=== PATIENT | female | born 1930 | race American Indian/Alaskan Native ===

== ENCOUNTER 2016-11-27 09:52 | Day surgery (SDC) | payer MEDICARE ==
[2016-11-27 10:17] VITALS: BP 160/72
[2016-11-27] MEDS ORDERED: NEOFRIN OS ONE (12:03)
[2016-11-27] MEDS ORDERED: MYDRIACYL 1% OS ONE (12:03)
[2016-11-27] MEDS ORDERED: IOPIDINE OS ONE (12:03)
== END 2016-11-27 12:57 | disposition home or self-care (01) ==
LOC: OR 09:52
PROVIDERS: ATTEND Specialist
DX: E11.36 Type 2 diabetes mellitus with diabetic cataract (principal); H26.492 Other secondary cataract, left eye; I10 Essential (primary) hypertension; E78.00 Pure hypercholesterolemia, unspecified; G47.30 Sleep apnea, unspecified; K21.9 Gastro-esophageal reflux disease without esophagitis; M19.90 Unspecified osteoarthritis, unspecified site; Z90.710 Acquired absence of both cervix and uterus; Z87.891 Personal history of nicotine dependence
CPT/HCPCS: 82962

== ENCOUNTER 2016-12-04 11:01 | Day surgery (SDC) | payer MEDICARE ==
[~2016-12-04 11:01] MED LIST: IOPIDINE OD ONE; MYDRIACYL OD ONE; NEOFRIN OD ONE
[2016-12-04 11:29] VITALS: BP 130/70
[2016-12-04] MEDS ORDERED: MYDRIACYL OD ONE (11:41)
[2016-12-04] MEDS ORDERED: IOPIDINE OD ONE ×2 (11:41)
[2016-12-04] MEDS ORDERED: NEOFRIN OD ONE (11:41)
== END 2016-12-04 12:43 | disposition home or self-care (01) ==
LOC: OR 11:01
PROVIDERS: ATTEND Specialist
DX: H26.491 Other secondary cataract, right eye (principal)
CPT/HCPCS: 82962

== ENCOUNTER 2019-02-19 23:30 | Emergency (ER) | payer MEDICARE ==
[2019-02-19] MEDS ORDERED: KEPPRA 1,000 MG/NS 0.75% 100ML 1,000 MG/100 ML BAG IV ONE (23:44)
[2019-02-20 00:51] LABS: Bilirubin,Urine NEG (Negative); Blood,Urine NEG (Negative); Color,Urine Yellow (Yellow); Protein,Urine <15 mg/dL mg/dL (Negative); Urobilinogen,Urine < 2.0 mg/dL (<2.0); WBC,Urine < 1.0 /HPF (0.0-6.0)
[2019-02-20 01:00] LABS: Amphetamine Screen,Urine PRESUMPTIVE NEGATIVE; Benzodiazepines Screen,Urine PRESUMPTIVE NEGATIVE; Cannabinoid Screen,Urine PRESUMPTIVE NEGATIVE; Cocaine Screen,Urine PRESUMPTIVE NEGATIVE; Methadone Screen,Urine PRESUMPTIVE NEGATIVE; Opiate Screen,Urine PRESUMPTIVE NEGATIVE
--- NOTE | 2019-02-20 01:02 | Emergency Department Report ---
ED Seizure HPI - General Chief Complaint: Seizure Stated Complaint: SEIZURE Time Seen by Provider: 02/19/19 23:44 Source: EMS, old records reviewed (from [facility]) Mode of arrival: Stretcher Limitations: No Limitations - History of Present Illness Initial Comments: 88-year-old female with a past medical history CHF, diabetes, hypertension, and recent diagnosis of brain brain tumor diagnosis on 02/15/2019 presents to the hospital with complaints of seizure.. Patient was found seizing by family members. EMS gave 2 of IM Ativan and patient continued to seize therefore received a second 2 mg IV dose of Ativan was provided. Patient is alert upon arrival with no further seizure activity. She denies pain. She is oriented to self but not to place or year. She states she feels fine. Awaiting family members arrival to the bedside for further information regarding recent brain tumor diagnosis and baseline mental status. Family (grandaughter and son) states that patient was admitted to [facility] and discharge last week. She was informed that she had both a mass in her brain and her kidney. She has a follow-up visit scheduled with a urologist on March 02. Family also states that patient has had increased confusion and hallucina tions since Mother's Day. He deny a past medical history of seizures. Medical records received from [facility] at 1:54 AM. It is listed that patient has a history of seizure disorder. Patient had a MRI that showed a right renal mass and she is supposed to follow up with urologist Dr. Hubbard. Differential includes possible renal cell carcinoma or there was artifact on the imaging study. It is listed that patient is supposed to continue Keppra for her seizure disorder. Keppra 500mg BID is listed as her med on her hospital MAR. Family members were not able to provide the hx that pt has sz medical record from [facility] placed on chart family informed that pt has a hx of seizures and should be on keppra. She has a lot of family members in the ER whenever, none of them know her history. The one family member who knows her history and meds is not in the ED. - Related Data Home Medications Medication Instructions Recorded Confirmed Last Taken Aspirin [Aspirin BABY CHEW TAB] 81 mg PO QDAY 10/02/14 02/20/19 Unknown Furosemide [Lasix TAB] 20 mg PO QDAY 10/02/14 02/20/19 Unknown Gabapentin [Neurontin] 300 mg PO QPM 10/02/14 02/20/19 Unknown Hydralazine HCl [Apresoline TAB] 25 mg PO TID 10/02/14 02/20/19 Unknown Omeprazole [PriLOSEC] 20 mg PO QDAY 10/02/14 02/20/19 Unknown Oxybutynin Chloride [Ditropan Xl] 10 mg PO QDAY 10/02/14 02/20/19 Unknown Simvastatin 20 mg PO QDAY 10/02/14 02/20/19 Unknown Vit B Comp No.3/Folic/C/Biotin 1 each PO QDAY 10/02/14 02/20/19 Unknown [Sherri-Edith Rx Tablet] metOLazone [Zaroxolyn] 2.5 mg PO BID 10/02/14 02/20/19 Unknown Previous Rx's Medication Instructions Recorded Last Taken Type levETIRAcetam [Keppra TAB] 500 mg PO BID #60 tablet 02/20/19 Unknown Rx Allergies Allergy/AdvReac Type Severity Reaction Status Date / Time No Known Allergies Allergy Verified 10/02/14 20:10 ED Review of Systems ROS: Stated complaint: SEIZURE Other details as noted in HPI Comment: All other systems reviewed and negative ED Past Medical Hx - Past Medical History Hx Hypertension: Yes Hx Congestive Heart Failure: Yes Hx Diabetes: Yes Additional medical history: HIATAL HERNIA, DX with Brain tumor on 02/15. - Surgical History Additional Surgical History: Stent in kidney - Social History Smoking Status: Never Smoker Substance Use Type: None - Medications Home Medications: Home Medications Medication Instructions Recorded Confirmed Last Taken Type Aspirin [Aspirin BABY CHEW TAB] 81 mg PO QDAY 10/02/14 02/20/19 Unknown History Furosemide [Lasix TAB] 20 mg PO QDAY 10/02/14 02/20/19 Unknown History Gabapentin [Neurontin] 300 mg PO QPM 10/02/14 02/20/19 Unknown History Hydralazine HCl [Apresoline TAB] 25 mg PO TID 10/02/14 02/20/19 Unknown History Omeprazole [PriLOSEC] 20 mg PO QDAY 10/02/14 02/20/19 Unknown History Oxybutynin Chloride [Ditropan Xl] 10 mg PO QDAY 10/02/14 02/20/19 Unknown History Simvastatin 20 mg PO QDAY 10/02/14 02/20/19 Unknown History Vit B Comp No.3/Folic/C/Biotin 1 each PO QDAY 10/02/14 02/20/19 Unknown History [Sherri-Edith Rx Tablet] metOLazone [Zaroxolyn] 2.5 mg PO BID 10/02/14 02/20/19 Unknown History levETIRAcetam [Keppra TAB] 500 mg PO BID #60 tablet 02/20/19 Unknown Rx ED Physical Exam - General Limitations: No Limitations - Other Other exam information: General: No limitations, patient is alert in no acute distress Head exam: Atraumatic, normocephalic Eyes exam: Normal appearance, pupils equal reactive to light, extraocular movements intact ENT: Moist mucous membrane Neck exam: Normal inspection, full range of motion, no meningismus nontender Respiratory exam: Clear to auscultation bilateral, no wheezes, rales, crackles Cardiovascular: Normal rate and rhythm, normal heart sounds Abdomen: Soft, nondistended, and nontender, with normal bowel sounds, no rebound, or guarding Extremity: Full range of motion normal inspection no deformity Back: Normal Inspection, full range of motion, no tenderness Neurologic: Alert, oriented x1, cranial nerves intact, no motor or sensory deficit, finger nose finger function intact Psychiatric: normal affect, normal mood Skin: Warm, dry, intact ED Course Vital Signs 02/19/19 02/19/19 02/20/19 23:34 23:46 00:27 Temperature 98.2 F 98.2 F Pulse Rate 95 H 95 H Respiratory 20 20 26 H Rate Blood Pressure 136/59 Blood Pressure 136/59 [Left] O2 Sat by Pulse 97 97 97 Oximetry 02/20/19 02:18 Temperature Pulse Rate 65 Respiratory 17 Rate Blood Pressure Blood Pressure 117/54 [Left] O2 Sat by Pulse 97 Oximetry - Reevaluation(s) Reevaluation #1: 02/20/19 01:30 Records requested from [facility] Medical Decision Making - Lab Data Result diagrams: 02/20/19 00:48 02/20/19 00:52 Lab Results 02/20/19 02/20/19 02/20/19 Range/Units 00:00 00:00 00:15 WBC (4.5-11.0) K/mm3 RBC (3.65-5.03) M/mm3 Hgb (10.1-14.3) gm/dl Hct (30.3-42.9) % MCV (79-97) fl MCH (28-32) pg MCHC (30-34) % RDW (13.2-15.2) % Plt Count (140-440) K/mm3 Lymph % (Auto) (13.4-35.0) % Elmore % (Auto) (0.0-7.3) % Eos % (Auto) (0.0-4.3) % Baso % (Auto) (0.0-1.8) % Lymph # (1.2-5.4) K/mm3 Elmore # (0.0-0.8) K/mm3 Eos # (0.0-0.4) K/mm3 Baso # (0.0-0.1) K/mm3 Seg Neutrophils % (40.0-70.0) % Seg Neutrophils # (1.8-7.7) K/mm3 Sodium (137-145) mmol/L Potassium (3.6-5.0) mmol/L Chloride (98-107) mmol/L Carbon Dioxide (22-30) mmol/L Anion Gap mmol/L BUN (7-17) mg/dL Creatinine (0.7-1.2) mg/dL Estimated GFR ml/min BUN/Creatinine Ratio % Glucose (65-100) mg/dL POC Glucose 162 H (70-105) Calcium (8.4-10.2) mg/dL Magnesium (1.7-2.3) mg/dL Troponin T (0.00-0.029) ng/mL Triglycerides (2-149) mg/dL Cholesterol (50-199) mg/dL LDL Cholesterol Direct (50-130) mg/dL HDL Cholesterol (40-59) mg/dL Cholesterol/HDL Ratio % TSH (0.270-4.200) mlU/mL Free T4 (0.76-1.46) ng/dL Urine Color Yellow (Yellow) Urine Turbidity Clear (Clear) Urine pH 5.0 (5.0-7.0) Ur Specific [place] 1.015 (1.003-1.030) Urine Protein <15 mg/dl (Negative) mg/dL Urine Glucose (UA) Neg (Negative) mg/dL Urine Ketones Neg (Negative) mg/dL Urine Blood Neg (Negative) Urine Nitrite Neg (Negative) Urine Bilirubin Neg (Negative) Urine Urobilinogen < 2.0 (<2.0) mg/dL Ur Leukocyte Esterase Neg (Negative) Urine WBC (Auto) < 1.0 (0.0-6.0) /HPF Urine RBC (Auto) 1.0 (0.0-6.0) /HPF Urine Opiates Screen Presumptive negative Urine Methadone Screen Presumptive negative Ur Barbiturates Screen Presumptive negative Ur Phencyclidine Scrn Presumptive negative Ur Amphetamines Screen Presumptive negative U Benzodiazepines Scrn Presumptive negative Urine Cocaine Screen Presumptive negative U Marijuana (THC) Screen Presumptive negative Drugs of Abuse Note Disclamer 02/20/19 02/20/19 02/20/19 Range/Units 00:48 00:52 00:52 WBC 8.0 (4.5-11.0) K/mm3 RBC 5.53 H (3.65-5.03) M/mm3 Hgb 12.8 (10.1-14.3) gm/dl Hct 39.6 (30.3-42.9) % MCV 72 L (79-97) fl MCH 23 L (28-32) pg MCHC 32 (30-34) % RDW 14.5 (13.2-15.2) % Plt Count 275 (140-440) K/mm3 Lymph % (Auto) 12.7 L (13.4-35.0) % Elmore % (Auto) 6.2 (0.0-7.3) % Eos % (Auto) 0.2 (0.0-4.3) % Baso % (Auto) 1.5 (0.0-1.8) % Lymph # 1.0 L (1.2-5.4) K/mm3 Elmore # 0.5 (0.0-0.8) K/mm3 Eos # 0.0 (0.0-0.4) K/mm3 Baso # 0.1 (0.0-0.1) K/mm3 Seg Neutrophils % 79.4 H (40.0-70.0) % Seg Neutrophils # 6.3 (1.8-7.7) K/mm3 Sodium 138 (137-145) mmol/L Potassium 3.2 L (3.6-5.0) mmol/L Chloride 98.6 (98-107) mmol/L Carbon Dioxide 26 (22-30) mmol/L Anion Gap 17 mmol/L BUN 24 H (7-17) mg/dL Creatinine 1.2 (0.7-1.2) mg/dL Estimated GFR 52 ml/min BUN/Creatinine Ratio 20 % Glucose 166 H (65-100) mg/dL POC Glucose (70-105) Calcium 9.6 (8.4-10.2) mg/dL Magnesium 1.50 L (1.7-2.3) mg/dL Troponin T (0.00-0.029) ng/mL Triglycerides (2-149) mg/dL Cholesterol (50-199) mg/dL LDL Cholesterol Direct (50-130) mg/dL HDL Cholesterol (40-59) mg/dL Cholesterol/HDL Ratio % TSH 0.389 (0.270-4.200) mlU/mL Free T4 2.14 H (0.76-1.46) ng/dL Urine Color (Yellow) Urine Turbidity (Clear) Urine pH (5.0-7.0) Ur Specific W[place]on (1.003-1.030) Urine Protein (Negative) mg/dL Urine Glucose (UA) (Negative) mg/dL Urine Ketones (Negative) mg/dL Urine Blood (Negative) Urine Nitrite (Negative) Urine Bilirubin (Negative) Urine Urobilinogen (<2.0) mg/dL Ur Leukocyte Esterase (Negative) Urine WBC (Auto) (0.0-6.0) /HPF Urine RBC (Auto) (0.0-6.0) /HPF Urine Opiates Screen Urine Methadone Screen Ur Barbiturates Screen Ur Phencyclidine Scrn Ur Amphetamines Screen U Benzodiazepines Scrn Urine Cocaine Screen U Marijuana (THC) Screen Drugs of Abuse Note 02/20/19 02/20/19 Range/Units 00:52 03:58 WBC (4.5-11.0) K/mm3 RBC (3.65-5.03) M/mm3 Hgb (10.1-14.3) gm/dl Hct (30.3-42.9) % MCV (79-97) fl MCH (28-32) pg MCHC (30-34) % RDW (13.2-15.2) % Plt Count (140-440) K/mm3 Lymph % (Auto) (13.4-35.0) % Elmore % (Auto) (0.0-7.3) % Eos % (Auto) (0.0-4.3) % Baso % (Auto) (0.0-1.8) % Lymph # (1.2-5.4) K/mm3 Elmore # (0.0-0.8) K/mm3 Eos # (0.0-0.4) K/mm3 Baso # (0.0-0.1) K/mm3 Seg Neutrophils % (40.0-70.0) % Seg Neutrophils # (1.8-7.7) K/mm3 Sodium (137-145) mmol/L Potassium (3.6-5.0) mmol/L Chloride (98-107) mmol/L Carbon Dioxide (22-30) mmol/L Anion Gap mmol/L BUN (7-17) mg/dL Creatinine (0.7-1.2) mg/dL Estimated GFR ml/min BUN/Creatinine Ratio % Glucose (65-100) mg/dL POC Glucose (70-105) Calcium (8.4-10.2) mg/dL Magnesium (1.7-2.3) mg/dL Troponin T 0.040 H 0.043 H (0.00-0.029) ng/mL Triglycerides 71 (2-149) mg/dL Cholesterol 153 (50-199) mg/dL LDL Cholesterol Direct 82 (50-130) mg/dL HDL Cholesterol 61 H (40-59) mg/dL Cholesterol/HDL Ratio 2.50 % TSH (0.270-4.200) mlU/mL Free T4 (0.76-1.46) ng/dL Urine Color (Yellow) Urine Turbidity (Clear) Urine pH (5.0-7.0) Ur Specific Wesson (1.003-1.030) Urine Protein (Negative) mg/dL Urine Glucose (UA) (Negative) mg/dL Urine Ketones (Negative) mg/dL Urine Blood (Negative) Urine Nitrite (Negative) Urine Bilirubin (Negative) Urine Urobilinogen (<2.0) mg/dL Ur Leukocyte Esterase (Negative) Urine WBC (Auto) (0.0-6.0) /HPF Urine RBC (Auto) (0.0-6.0) /HPF Urine Opiates Screen Urine Methadone Screen Ur Barbiturates Screen Ur Phencyclidine Scrn Ur Amphetamines Screen U Benzodiazepines Scrn Urine Cocaine Screen U Marijuana (THC) Screen Drugs of Abuse Note - EKG Data -: EKG Interpreted by Me EKG shows normal: sinus rhythm (sinus arrhythmia), axis (qrs -56), QRS complexes (qrsd 92), ST-T waves (no stemi) - EKG Data 02/20/19 02:01 repeat ekg shows at 1:52 amd shows sinsus arrhythmia - Radiology Data Radiology results: report reviewed PROCEDURE: CT HEAD/BRAIN WO CON TECHNIQUE: Computerized tomography of the head was performed without contrast material. CT DOSE LENGTH PRODUCT: 805.4 mGycm HISTORY: new onset sz, recent brain tumor diagnosis COMPARISONS: None . FINDINGS: There is moderate central and cortical atrophy. There is no hydrocephalus or asymmetry. There is a calcified right frontal meningioma measuring 13 mm. There are old lacunar infarct defect bilaterally. There is chronic deep white matter ischemic gliosis. Bony calvarium is intact. Paranasal sinuses are clear. IMPRESSION: There is moderate central and cortical atrophy. There is no hydrocephalus or asymmetry. There is a calcified right frontal meningioma measuring 13 mm. There are old lacunar infarct defect bilaterally. There is chronic deep white matter ischemic gliosis. - Medical Decision Making I discussed case with multiple family members to inform them that patient does have a history of seizures. I instructed them to reevaluate her home medications to assures that she is indeed taking the Keppra as prescribed. I will prescribe additional Keppra just in case they do not have the medication at home. Outpatient follow-up with a neurologist is advised. Pt is at her baseline mental status Mild troponin elevation noted. ekg stable x2. No complaints of chest pain. Repeat shows that it is stable. Patient will be discharged home. - Differential Diagnosis seizure, encephalopathy, brain tumor, ICH Critical Care Time: No Critical care attestation.: If time is entered above; I have spent that time in minutes in the direct care of this critically ill patient, excluding procedure time. ED Disposition Clinical Impression: Breakthrough seizure, Calcified cerebral meningioma Disposition: DC-01 TO HOME OR SELFCARE Is pt being admited?: No Does the pt Need Aspirin: No Condition: Stable Instructions: Epilepsy (ED) Additional Instructions: Take the medication as prescribed. Follow up with your doctor or the clinic/doctor provided. Return if symptoms worsen as indicated by your discharge instructions Prescriptions: levETIRAcetam [Keppra TAB] 500 mg PO BID #60 tablet Referrals: PRIMARY CARE, [Primary Care Provider] - 3-5 Days LINDA CARDONA MD [Staff Physician] - 3-5 Days (neurologist) Time of Disposition: 06:06
[2019-02-20 01:06] LABS: Basophils # (Auto) 0.1 K/mm3 (0.0-0.1); Basophils % (Auto) 1.5 % (0.0-1.8); Eosinophils % (Auto) 0.2 % (0.0-4.3); Hematocrit 39.6 % (30.3-42.9); Hemoglobin 12.8 gm/dl (10.1-14.3); Lymphocytes % (Auto) 12.7 % (13.4-35.0); Mean Corpuscular HGB Conc 32 % (30-34); Mean Corpuscular Volume 72 fl (79-97); Monocytes # (Auto) 0.5 K/mm3 (0.0-0.8); Monocytes % (Auto) 6.2 % (0.0-7.3); Platelet Count 275 K/mm3 (140-440); Red Blood Count 5.53 M/mm3 (3.65-5.03); Red Cell Distribution Width 14.5 % (13.2-15.2)
--- NOTE | 2019-02-20 01:08 | Cat Scan Report ---
PROCEDURE: CT HEAD/BRAIN WO CON TECHNIQUE: Computerized tomography of the head was performed without contrast material. CT DOSE LENGTH PRODUCT: 805.4 mGycm HISTORY: new onset sz, recent brain tumor diagnosis COMPARISONS: None . FINDINGS: There is moderate central and cortical atrophy. There is no hydrocephalus or asymmetry. There is a calcified right frontal meningioma measuring 13 mm. There are old lacunar infarct defect bilaterally. There is chronic deep white matter ischemic gliosis . Bony calvarium is intact. Paranasal sinuses are clear. IMPRESSION: There is moderate central and cortical atrophy. There is no hydrocephalus or asymmetry. There is a calcified right frontal meningioma measuring 13 mm. There are old lacunar infarct defect bilaterally. There is chronic deep white matter ischemic gliosis . This document is electronically signed by Miguel Ángel Snyder MD., February 20 2019 02:06:17 AM ET
[2019-02-20 01:28] LABS: Calcium 9.6 mg/dL (8.4-10.2)
[2019-02-20] MEDS ORDERED: MAGNESIUM SULFATE 2GM/50ML 2 GM/50 ML BAG IV ONE (01:32)
[2019-02-20] MEDS ORDERED: K-DUR PO ONE (01:32)
[2019-02-20 01:39] LABS: Free T4 (Free Thyroxine) 2.14 ng/dL (0.76-1.46)
[2019-02-20 02:21] VITALS: BP 117/54
[2019-02-20 02:54] LABS: Chol/HDL Ratio 2.5 %
== END 2019-02-20 11:18 | disposition home or self-care (01) ==
LOC: ED 23:30
DX: G40.909 Epilepsy, unspecified, not intractable, without status epilepticus (principal); D32.0 Benign neoplasm of cerebral meninges; I11.0 Hypertensive heart disease with heart failure; I50.9 Heart failure, unspecified; E11.9 Type 2 diabetes mellitus without complications; Z79.82 Long term (current) use of aspirin
CPT/HCPCS: 36415; 70450; 80048; 80061; 80307; 81001; 82962; 83735; 84439; 84443; 84484; 85025; 93005; 93010; 96365; 96366; 96367; 99285; J1953; J3475

== ENCOUNTER 2019-03-03 12:48 | Emergency (ER) | payer MEDICARE ==
[2019-03-03] MEDS ORDERED: KEPPRA 1,000 MG/NS 0.75% 100ML 1,000 MG/100 ML BAG IV ONE (13:17)
--- NOTE | 2019-03-03 13:52 | Emergency Department Report ---
HPI - General Chief Complaint: Seizure Time Seen by Provider: 03/03/19 13:14 - HPI HPI: 88-year-old -[place] female presents to the emergency department after she had a witnessed seizure just prior to arrival. It was witnessed by her and lasted for "a while." The patient is currently awake and alert with no significant complaints at this time. She has a past medical history of hypertension, diabetes, CHF, and a recent diagnosis of a brain mass and kidney mass. The patient was here about 11 days ago after having a seizure which was relatively new at the time. She was at [facility] about one week prior to that in which she had the brain mass diagnosis. They say that she is on some kind of medication for seizures but they are unsure exactly what medication that is. It does not appear that she received anything in route with EMS. No recent travel or sick contacts at home. ED Past Medical Hx - Past Medical History Hx Hypertension: Yes Hx Congestive Heart Failure: Yes Hx Diabetes: Yes Hx Seizures: Yes Additional medical history: HIATAL HERNIA, DX with Brain tumor on 02/15. - Surgical History Additional Surgical History: Stent in kidney - Social History Smoking Status: Never Smoker Substance Use Type: None - Medications Home Medications: Home Medications Medication Instructions Recorded Confirmed Last Taken Type Aspirin [Aspirin BABY CHEW TAB] 81 mg PO QDAY 10/02/14 02/20/19 Unknown History Furosemide [Lasix TAB] 20 mg PO QDAY 10/02/14 02/20/19 Unknown History Gabapentin [Neurontin] 300 mg PO QPM 10/02/14 02/20/19 Unknown History Hydralazine HCl [Apresoline TAB] 25 mg PO TID 10/02/14 02/20/19 Unknown History Omeprazole [PriLOSEC] 20 mg PO QDAY 10/02/14 02/20/19 Unknown History Oxybutynin Chloride [Ditropan Xl] 10 mg PO QDAY 10/02/14 02/20/19 Unknown History Simvastatin 20 mg PO QDAY 10/02/14 02/20/19 Unknown History Vit B Comp No.3/Folic/C/Biotin 1 each PO QDAY 10/02/14 02/20/19 Unknown History [Sherri-Edith Rx Tablet] metOLazone [Zaroxolyn] 2.5 mg PO BID 10/02/14 02/20/19 Unknown History levETIRAcetam [Keppra TAB] 500 mg PO BID #60 tablet 02/20/19 Unknown Rx ED Review of Systems ROS: Stated complaint: UNRESPONSIVE/POSS SEIZURE Other details as noted in HPI Comment: All other systems reviewed and negative Constitutional: denies: chills, fever Eyes: denies: eye pain, vision change ENT: denies: ear pain, throat pain Respiratory: denies: cough, shortness of breath Cardiovascular: denies: chest pain, palpitations Gastrointestinal: denies: abdominal pain, vomiting Genitourinary: denies: dysuria, discharge Musculoskeletal: denies: back pain, arthralgia Skin: denies: rash, lesions Neurological: other (seizure). denies: numbness Physical Exam - Physical Exam Physical Exam: GENERAL: The patient is well-developed well-nourished. HENT: Normocephalic. Atraumatic. Patient has moist mucous membranes. EYES: Extraocular motions are intact. Pupils equal reactive to light bilaterally. No nystagmus. NECK: Supple. Trachea is midline. CHEST/LUNGS: Clear to auscultation. There is no respiratory distress noted. HEART/CARDIOVASCULAR: Regular. There is no tachycardia. There is no murmur. ABDOMEN: Abdomen is soft, nontender. Patient has normal bowel sounds. There is no abdominal distention. SKIN: Skin is warm and dry. NEURO: The patient is awake, alert, and oriented. The patient is cooperative. The patient has no focal neurologic deficits. The patient has normal speech. Cranial nerves II through XII grossly intact. MUSCULOSKELETAL: There is no tenderness or deformity. There is no limitation range of motion. There is no evidence of acute injury. ED Medical Decision Making - Lab Data Result diagrams: 03/03/19 13:52 03/03/19 13:52 - EKG Data -: EKG Interpreted by Ks EKG shows normal: sinus rhythm (PVCs), axis (left axis deviation), intervals (mild prolongation of MT interval), QRS complexes (left anterior fascicular block, Q waves to the anterior leads), ST-T waves Rate: normal - EKG Data When compared to previous EKG there are: no significant change Interpretation: unchanged when compared t (02/22/19) - Medical Decision Making This patient presents to the emergency department after having a seizure prior to arrival. The patient has a history of a meningioma found in the mid to late January at another hospital and has been having a few seizures since that time. She is on Keppra and family says that she has been taking it compliantly. The patient has been awake, alert and at her baseline mental status since my initial evaluation. She was given a loading dose of Keppra. EKG does not show any signs of ST elevation UT and is unchanged from previous. Patient's labs were mostly unremarkable except for a slightly elevated troponin level and some possible hypothyroidism. The troponin level was 0.031, which is barely above the normal range, and his decreased from the troponin level she had when she was here 10 days ago. Also, the patient denies any chest pain, back pain, shortness of breath. Since patient had an MRI at [facility] that was reviewed and confirmed by my colleague, and since she had a repeat CT scan of the head during her last visit, and since there is been one seizure today with a seizure history, I did not feel that it was necessary to repeat the CT imaging of the head at this time. She was reevaluated multiple times over multiple hours and has remained awake, alert and at her baseline mental status. There is been no further seizure-like activity. Prior to discharge, the patient was seen ambulatory using a walker, which she does use, without any instability. For all these reasons, the patient appears safe for discharge home at this time. She's been instructed to continue with her antiepileptic medication and she has been given multiple referrals for neurology. I spoke in great detail to the patient's son regarding all of the lab results, her previous visits here, the diagnosis of a meningioma, the need to follow-up with neurology. They understand to return to the emergency department with any further seizure-like activity, worsening of her symptoms, or with any acute distress. - Differential Diagnosis epilepsy, malignancy, dysrhythmia, electrolyte abnormalities Critical Care Time: No Critical care attestation.: If time is entered above; I have spent that time in minutes in the direct care of this critically ill patient, excluding procedure time. ED Disposition Clinical Impression: Calcified cerebral meningioma, Seizure Hypertension Qualifiers: Hypertension type: essential hypertension Qualified Code(s): I10 - Essential (primary) hypertension Disposition: DC-01 TO HOME OR SELFCARE Is pt being admited?: No Condition: Stable Instructions: Meningioma (ED), Hypertension (ED), Recurrent Seizures Adult (ED) Additional Instructions: Please follow-up with your primary care physician in the next few days. I am giving you the referral information for 3 different neurologists, brain doctors, to follow up regarding your seizures and this meningioma (small brain tumor) that was previously found at [facility]. Continue taking the Keppra, your seizure medication, as previously prescribed. Return to the emergency department immediately with any further seizures, change in your mental status, worsening of your symptoms, or if any acute distress. Referrals: [facility] [Provider Group] - 3-5 Days GLORIA STODDARD MD [Staff Physician] - 3-5 Days LINDA CARDONA MD [Staff Physician] - 3-5 Days GABBY SADLER MD [Staff Physician] - 3-5 Days Time of Disposition: 17:57
[2019-03-03 14:19] LABS: Hematocrit 38.1 % (30.3-42.9); Hemoglobin 12.3 gm/dl (10.1-14.3); Mean Corpuscular HGB Conc 32 % (30-34); Mean Corpuscular Volume 72 fl (79-97); Platelet Count 278 K/mm3 (140-440); Red Blood Count 5.28 M/mm3 (3.65-5.03)
[2019-03-03 14:22] LABS: Alanine Aminotransferase 11 units/L (7-56); Albumin 3.1 g/dL (3.9-5); BUN/Creatinine Ratio 13; Blood Urea Nitrogen 9 mg/dL (7-17); Calcium 9.4 mg/dL (8.4-10.2); Hemolysis Index 24
[2019-03-03 14:59] LABS: Basophils % (Manual) 0 % (0.0-1.8); Total Cells Counted 100
[2019-03-03 15:00] LABS: Anisocytosis Few; Hypochromasia 1+; Platelet Estimate Consistent w Auto; Target Cells Few
[2019-03-03 15:11] LABS: Chol/HDL Ratio 2.2 %
[2019-03-03 18:31] LABS: Bacteria,Urine 1+ /HPF (Negative); Bilirubin,Urine NEG (Negative); Blood,Urine NEG (Negative); Color,Urine Yellow (Yellow); Mucus,Urine FEW /HPF; Protein,Urine <15 mg/dL mg/dL (Negative); Urobilinogen,Urine < 2.0 mg/dL (<2.0)
[2019-03-03 19:19] VITALS: BP 165/87
== END 2019-03-03 19:20 | disposition home or self-care (01) ==
LOC: ED 12:48
DX: R56.9 Unspecified convulsions (principal); D32.0 Benign neoplasm of cerebral meninges; I11.0 Hypertensive heart disease with heart failure; I50.9 Heart failure, unspecified; E11.9 Type 2 diabetes mellitus without complications; Z79.82 Long term (current) use of aspirin
CPT/HCPCS: 36415; 80053; 80061; 81001; 82550; 84443; 84484; 85007; 85025; 93005; 93010; 96374; 99284; G0480; J1953; 80320

== ENCOUNTER 2021-10-23 12:20 | Inpatient (IN) | payer MEDICARE ==
[2021-10-23] MEDS ORDERED: LORazepam 2 MG/ML VIAL IV ONE (12:30)
--- NOTE | 2021-10-23 12:42 | Emergency Department Report ---
HPI - General Time Seen by Provider: 10/23/21 12:30 - HPI HPI: Room 1 The patient is an 89-year-old female presenting with unresponsiveness. Per EMS the patient was at home and family reports they were changing her diaper when she went unresponsive. There was no reported seizure activity. Upon EMS arrival the patient was lying on the bed unresponsive with agonal respirations. Subsequently, the patient was intubated by EMS prior to arrival ED Past Medical Hx - Past Medical History Hx Hypertension: Yes Hx Congestive Heart Failure: Yes Hx Diabetes: Yes Hx Seizures: Yes Additional medical history: HIATAL HERNIA, meningioma - Surgical History Additional Surgical History: Stent in kidney - Family History Family history: no significant - Social History Smoking Status: Unknown if ever smoked Substance Use Type: None - Medications Home Medications: Home Medications Medication Instructions Recorded Confirmed Last Taken Type Aspirin [Aspirin BABY CHEW TAB] 81 mg PO QDAY 10/02/14 02/20/19 Unknown History Furosemide [Lasix TAB] 20 mg PO QDAY 10/02/14 02/20/19 Unknown History Gabapentin 300 mg PO QPM 10/02/14 02/20/19 Unknown History Hydralazine HCl [Apresoline TAB] 25 mg PO TID 10/02/14 02/20/19 Unknown History Omeprazole [PriLOSEC] 20 mg PO QDAY 10/02/14 02/20/19 Unknown History Oxybutynin Chloride [Ditropan Xl] 10 mg PO QDAY 10/02/14 02/20/19 Unknown History Simvastatin 20 mg PO QDAY 10/02/14 02/20/19 Unknown History Vit B Comp No.3/Folic/C/Biotin 1 each PO QDAY 10/02/14 02/20/19 Unknown History [Sherri-Edith Rx Tablet] metOLazone [Zaroxolyn] 2.5 mg PO BID 10/02/14 02/20/19 Unknown History levETIRAcetam [Keppra TAB] 500 mg PO BID #60 tablet 02/20/19 Unknown Rx ED Review of Systems ROS: Stated complaint: UNRESPONSIVE Other details as noted in HPI Comment: Unobtainable due to pts medical conditions Physical Exam - Physical Exam Physical Exam: GENERAL: The patient is well-developed well-nourished female intubated lying on stretcher. [] HEENT: Normocephalic. Atraumatic. Patient opens her eyes NECK: Supple. Trachea mid CHEST/LUNGS: Clear to auscultation. Breath sounds bilaterally HEART/CARDIOVASCULAR: Regular. There is no tachycardia. There is no gallop rub or murmur. ABDOMEN: Abdomen is soft, nontender. Patient has normal bowel sounds. There is no abdominal distention. SKIN: There is no rash. There is no edema. There is no diaphoresis. NEURO: The patient opens her eyes and makes some apparent nonpurposeful movements. GCS 8T MUSCULOSKELETAL: There is no evidence of acute injury. ED Course - Reevaluation(s) Reevaluation #1: 10/23/21 13:21 Nursing reports the patient has had intermittent runs of V. tach. Will initiate amiodarone - EJ/Peripheral Line Neck L Time Out Performed: No Indications: nurses unable to establis Skin Cleansed in Sterile Fashion: Yes Size: 20 Dressing Placed: Tegaderm Patient Tolerated Procedure: well ED Medical Decision Making - Lab Data Result diagrams: 10/23/21 14:27 10/23/21 Unknown - EKG Data Rate: normal - EKG Data When compared to previous EKG there are: previous EKG unavailable Interpretation: nonspecific ST-T wave zeynep 10/23/21 14:50 Atrial fibrillation at 57 bpm - Radiology Data Radiology results: report reviewed (Chest x-ray, CT head), image reviewed (Chest x-ray, CT head) interpreted by me: Chest x-ray-ET tube in appropriate position. No pneumothorax. Right hilar fullness [facility] [address] [place] [address] XRay Report Signed Patient: AKANKSHA GOMEZ MR#: [id number] : 1930 Acct:[id number] Age/Sex: 89 / F ADM Date: 10/23/21 Loc: ED Attending Dr: Ordering Physician: NICKOLAS LOVE MD Date of Service: 10/23/21 Procedure(s): XR chest 1V ap Accession Number(s): [id number] cc: NICKOLAS LOVE MD Fluoro Time In Minutes: CHEST 1 VIEW 10/23/2021 12:09 PM INDICATION / CLINICAL INFORMATION: Unresponsive, status post intubation. COMPARISON: 2 views of the chest from 10/02/2014. FINDINGS: The patient is rotated to the right. SUPPORT DEVICES: An ET tube terminates 2 cm above the rayray. HEART / MEDIASTINUM: Normal size of the cardiac silhouette. There is a nonspecific opacity at the level of the right hilum. LUNGS / PLEURA: Right hilar opacity as above with otherwise clear lungs. No significant pleural effusion. No pneumothorax. ADDITIONAL FINDINGS: No significant additional findings. IMPRESSION: 1. Satisfactory positioning of ET tube. 2. Nonspecific right hilar opacity could represent summation of normal mediastinal structures. Other considerations such as a mass, lymphadenopathy or focal airspace opacity are less likely, but cannot be entirely excluded. Signer Name: Florencio Akhtar MD Signed: 10/23/2021 1:17 PM Workstation Name: [id number] Transcribed By: MN Dictated By: Florencio Akhtar MD Electronically Authenticated By: Florencio Akhtar MD Signed Date/Time: 10/23/211316 DD/ 13 TD/TT: Print Cancel [facility] [address] [place] [address] Cat Scan Report Signed Patient: AKANKSHA GOMEZ MR#: [id number] : 1930 Acct:[id number] Age/Sex: 89 / F ADM Date: 10/23/21 Loc: ED Attending Dr: Ordering Physician: NICKOLAS LOVE MD Date of Service: 10/23/21 Procedure(s): CT head/brain wo con Accession Number(s): [id number] cc: NICKOLAS LOVE MD CT head/brain wo con INDICATION / CLINICAL INFORMATION: 89 years Female; Unresponsive. TECHNIQUE: Routine CT head without contrast. All CT scans at this location are performed using CT dose reduction for ALARA by means of automated exposure control. COMPARISON: 02/20/2019 FINDINGS: BRAIN / INTRACRANIAL CONTENTS: There are not findings consistent with a small meningioma along the inner table of the posterior frontal bone on the right, with minimal adjacent hyperostosis. This finding is not definitely changed in size when compared with prior exam and measures approximately 11 mm in maximum dimension. Otherwise, no acute hemorrhage, mass effect, midline shift, hydrocephalus, or acute, large territorial infarct. Mild, diffuse cerebral and cerebellar atrophy. Moderate degree of hippocampal atrophy suggested bilaterally. There are [id number] areas of decreased attenuation in the white matter of the cerebral hemispheres. These are nonspecific findings and may be related to microangiopathy (hypertension, diabetes, atherosclerosis), given the patient's age. It might be difficult to evaluate for small areas of ischemia without diffusion imaging by MRI. CRANIOCERVICAL JUNCTION: No significant abnormality. ORBITS: No significant abnormality of visualized orbits. SINUSES / MASTOIDS: There is complete opacification of the right sphenoid sinus. Partial opacification seen in the ethmoids posteriorly on the right, as well as left sphenoid sinus. Small mucous retention cyst/polyps are seen in the right maxillary antrum. ADDITIONAL FINDINGS: No significant atherosclerotic disease appreciated. IMPRESSION: 1. No focal intra-axial mass, hemorrhage, hydrocephalus, or acute, large territorial infarct. 2. No significant interval change in the appearance of the presumed meningioma along the inner table of the right frontal bone. Signer Name: Villa Stock MD, III Signed: 10/23/2021 2:08 PM Workstation Name: [id number] Transcribed By: HR Dictated By: Villa Stock MD Electronically Authenticated By: Villa Stock MD Signed Date/Time: 10/23/211407 DD/ 03 TD/TT: Print Cancel - Differential Diagnosis Seizure, ICH, electrolyte abnormality, dysrhythmia, metabolic Critical care attestation.: If time is entered above; I have spent that time in minutes in the direct care of this critically ill patient, excluding procedure time. ED Disposition Clinical Impression: Altered mental status, A-fib, V tach Disposition: ADMITTED INPATIENT Is pt being admited?: Yes Does the pt Need Aspirin: Yes Condition: Fair Time of Disposition: 15:05 (Hospitalist called (Dr. Krueger))
[2021-10-23] MEDS ORDERED: SODIUM CHLORIDE 0.9% 1000 ML 1,000 ML IV ONE (12:53)
[2021-10-23] MEDS ORDERED: MIDAZOLAM 100 MG/100 ML IV SCH (13:00)
--- NOTE | 2021-10-23 13:21 | XRay Report ---
CHEST 1 VIEW 10/23/2021 12:09 PM INDICATION / CLINICAL INFORMATION: Unresponsive, status post intubation. COMPARISON: 2 views of the chest from 10/02/2014. FINDINGS: The patient is rotated to the right. SUPPORT DEVICES: An ET tube terminates 2 cm above the rayray. HEART / MEDIASTINUM: Normal size of the cardiac silhouette. There is a nonspecific opacity at the lev el of the right hilum. LUNGS / PLEURA: Right hilar opacity as above with otherwise clear lungs. No significant pleural effus ion. No pneumothorax. ADDITIONAL FINDINGS: No significant additional findings. IMPRESSION: 1. Satisfactory positioning of ET tube. 2. Nonspecific right hilar opacity could represent summation of normal mediastinal structures. Other considerations such as a mass, lymphadenopathy or focal airspace opacity are less likely, but cannot be entirely excluded. Signer Name: Florencio Akhtar MD Signed: 10/23/2021 1:17 PM Workstation Name: [id number]
[2021-10-23 13:43] LABS: Bacteria,Urine 1+ /HPF (Negative); Bilirubin,Urine NEG (Negative); Blood,Urine MOD (Negative); Color,Urine Yellow (Yellow); Mucus,Urine FEW /HPF
[2021-10-23 13:46] LABS: ABG Base Excess -4.9 mmol/L (-2.0-3.0); ABG HCO3 20.5 mmol/L (20.0-26.0); ABG Methemoglobin 0.5 % (0.0-1.5); ABG Oxygen Saturation 99.5 % (95.0-99.0); ABG PCO2 38.9 mm Hg; ABG PH 7.339 pH Units (7.350-7.450); ABG PO2 288.6 mm Hg (80.0-90.0)
[2021-10-23] MEDS ORDERED: cefTRIAXone/NS 1 GM/50 ML 1 GM/50 ML BAG IV ONE (13:46)
[2021-10-23] MEDS ORDERED: AMIODARONE 150 MG in DEXTROSE 5% IN WATER 97 ML IV ONE (14:00)
[2021-10-23] MEDS ORDERED: AMIODARONE 900 MG in DEXTROSE 5% IN WATER 482 ML IV SCH (14:00)
--- NOTE | 2021-10-23 14:12 | Cat Scan Report ---
CT head/brain wo con INDICATION / CLINICAL INFORMATION: 89 years Female; Unresponsive. TECHNIQUE: Routine CT head without contrast. All CT scans at this location are performed using CT dos e reduction for ALARA by means of automated exposure control. COMPARISON: 02/20/2019 FINDINGS: BRAIN / INTRACRANIAL CONTENTS: There are not findings consistent with a small meningioma along the in ner table of the posterior frontal bone on the right, with minimal adjacent hyperostosis. This findin g is not definitely changed in size when compared with prior exam and measures approximately 11 mm in maximum dimension. Otherwise, no acute hemorrhage, mass effect, midline shift, hydrocephalus, or acute, large territoria l infarct. Mild, diffuse cerebral and cerebellar atrophy. Moderate degree of hippocampal atrophy suggested bilat erally. There are akyx-ej-mbwmdjjz areas of decreased attenuation in the white matter of the cerebral hemisph eres. These are nonspecific findings and may be related to microangiopathy (hypertension, diabetes, a therosclerosis), given the patient's age. It might be difficult to evaluate for small areas of ischem ia without diffusion imaging by MRI. CRANIOCERVICAL JUNCTION: No significant abnormality. ORBITS: No significant abnormality of visualized orbits. SINUSES / MASTOIDS: There is complete opacification of the right sphenoid sinus. Partial opacificatio n seen in the ethmoids posteriorly on the right, as well as left sphenoid sinus. Small mucous retenti on cyst/polyps are seen in the right maxillary antrum. ADDITIONAL FINDINGS: No significant atherosclerotic disease appreciated. IMPRESSION: 1. No focal intra-axial mass, hemorrhage, hydrocephalus, or acute, large territorial infarct. 2. No significant interval change in the appearance of the presumed meningioma along the inner table of the right frontal bone. Signer Name: Villa Stock MD, III Signed: 10/23/2021 2:08 PM Workstation Name: [id number]
[2021-10-23 14:36] LABS: Basophils % (Auto) 0.2 % (0.0-1.8); Eosinophils % (Auto) 0.1 % (0.0-4.3); Lymphocytes # (Auto) 1.1 K/mm3 (1.2-5.4); Lymphocytes % (Auto) 10.7 % (13.4-35.0); Mean Corpuscular HGB Conc 31 % (30-34); Mean Corpuscular Volume 73 fl (79-97); Monocytes # (Auto) 0.5 K/mm3 (0.0-0.8); Monocytes % (Auto) 4.4 % (0.0-7.3); Platelet Count 217 K/mm3 (140-440); Red Cell Distribution Width 14.9 % (13.2-15.2)
[2021-10-23 14:37] LABS: Hematocrit 37.9 % (30.3-42.9); Hemoglobin 11.6 gm/dl (10.1-14.3)
[2021-10-23] MEDS ORDERED: ASPIRIN 300 MG RECT SUPP PR ONE (14:51)
[2021-10-23 15:04] LABS: Alanine Aminotransferase 65 units/L (7-56); Albumin 2.8 g/dL (3.9-5); Blood Urea Nitrogen 24 mg/dL (7-17); Calcium 8.4 mg/dL (8.4-10.2); Hemolysis Index 3
[2021-10-23 15:05] LABS: BUN/Creatinine Ratio 34
--- NOTE | 2021-10-23 15:11 | History and Physical Report ---
History of Present Illness Chief complaint: Unresponsive History of present illness: 89 YO Female with HTN, Malnutrition, DM, Seizure Disorder, OA, CHF, Meningioma presents to ED for evaluation. Patient is intubated and on ventilatory support at the time my evaluation and is unable to provide history. Patient history taken from EMS staff, ED staff, as well as patient family was made available by telephone for interview. As per family the patient was receiving care at home and undergoing a diaper change when she subsequently became unresponsive. EMS was notified and upon arrival the patient was found to be in distress with agonal respirations and deemed unable to protect her airway and was subsequently intubated and transported to [facility] for further care and evaluation of the aforementioned symptoms. The patient was seen and evaluated in the emergency department. All lab and imaging studies reviewed. The patient was found to have acute hypoxemic respiratory failure and placed on ventilatory support. Chest x-ray revealed pneumonia suspected secondary to aspiration, metabolic acidosis, urinary tract infection, systemic inflammatory response syndrome, as well as type II NSTEMI. Patient admitted to ICU due to increased risk of worsening symptoms. Patient initiated on pneumonia protocol. No further history is obtainable. Prior admission on 10/02/2014 reviewed. All medication listed at time of admission has been reconciled. Advanced care planning conducted in ED. Past History Past Surgical History: hysterectomy, total knee replacement Social history: . denies: smoking, alcohol abuse Family history: hypertension Medications and Allergies Allergies Allergy/AdvReac Type Severity Reaction Status Date / Time No Known Allergies Allergy Verified 10/02/14 20:10 Home Medications Medication Instructions Recorded Confirmed Last Taken Type Aspirin [Aspirin BABY CHEW TAB] 81 mg PO QDAY 10/02/14 02/20/19 Unknown History Furosemide [Lasix TAB] 20 mg PO QDAY 10/02/14 02/20/19 Unknown History Gabapentin 300 mg PO QPM 10/02/14 02/20/19 Unknown History Hydralazine HCl [Apresoline TAB] 25 mg PO TID 10/02/14 02/20/19 Unknown History Omeprazole [PriLOSEC] 20 mg PO QDAY 10/02/14 02/20/19 Unknown History Oxybutynin Chloride [Ditropan Xl] 10 mg PO QDAY 10/02/14 02/20/19 Unknown History Simvastatin 20 mg PO QDAY 10/02/14 02/20/19 Unknown History Vit B Comp No.3/Folic/C/Biotin 1 each PO QDAY 10/02/14 02/20/19 Unknown History [Sherri-Edith Rx Tablet] metOLazone [Zaroxolyn] 2.5 mg PO BID 10/02/14 02/20/19 Unknown History levETIRAcetam [Keppra TAB] 500 mg PO BID #60 tablet 02/20/19 Unknown Rx Active Meds: Active Medications Midazolam DRIP Premix (Midazolam/Ns 100 Mg/100 Ml) 100 mg in 100 mls @ 1 mls/hr IV TITR JANET; Protocol Amiodarone HCl 900 mg/ (Dextrose) 500 mls @ 33.333 mls/hr IV DIRECT JANET; Protocol Review of Systems ROS unobtainable: due to endotracheal tube, due to mental status Exam - Constitutional Vitals: Temp Pulse Resp BP Pulse Ox 95.7 F L 105 H 20 102/68 99 10/23/21 13:34 10/23/21 14:00 10/23/21 13:34 10/23/21 13:38 10/23/21 14:00 General appearance: Present: mild distress - EENT Eyes: Present: miosis - Neck Neck: Present: supple, normal ROM - Respiratory Respiratory effort: labored Respiratory: bilateral: diminished, rhonchi - Cardiovascular Heart Sounds: Present: S1 & S2. Absent: rub, click - Extremities Extremities: pulses symmetrical, No edema Peripheral Pulses: within normal limits - Abdominal General gastrointestinal: Present: soft, non-tender, non-distended, normal bowel sounds Female genitourinary: Present: normal - Integumentary Integumentary: Present: clear, dry - Musculoskeletal Musculoskeletal: generalized weakness - Psychiatric Psychiatric: no appropriate mood/affect, no intact judgment & insight - Neurologic Neurologic: CNII-XII intact, no focal deficits, moves all extremities, no gait normal HEART Score - HEART Score Troponin: Troponin T 0.082 ng/mL (0.00-0.029) H 10/23/21 Unknown Results - Labs CBC & Chem 7: 10/23/21 14:27 10/23/21 Unknown Labs: Abnormal lab results 10/23/21 10/23/21 10/23/21 Range/Units 13:35 14:27 Unknown RBC 5.20 H (3.65-5.03) M/mm3 MCV 73 L (79-97) fl MCH 22 L (28-32) pg Lymph % (Auto) 10.7 L (13.4-35.0) % Lymph # (Auto) 1.1 L (1.2-5.4) K/mm3 Seg Neutrophils % 84.6 H (40.0-70.0) % Seg Neutrophils # 8.8 H (1.8-7.7) K/mm3 ABG pH 7.339 L (7.350-7.450) pH Units ABG pO2 288.6 H (80.0-90.0) mm Hg ABG O2 Saturation 99.5 H (95.0-99.0) % ABG Base Excess -4.9 L (-2.0-3.0) mmol/L ABG Hemoglobin 11.7 L (12.0-16.0) gm/dl Potassium (3.6-5.0) mmol/L Chloride (98-107) mmol/L Carbon Dioxide (22-30) mmol/L BUN (7-17) mg/dL Glucose (65-100) mg/dL Magnesium (1.7-2.3) mg/dL AST (5-40) units/L ALT (7-56) units/L Troponin T (0.00-0.029) ng/mL Total Protein (6.3-8.2) g/dL Albumin (3.9-5) g/dL Urine WBC (Auto) 45.0 H (0.0-6.0) /HPF 10/23/21 Range/Units Unknown RBC (3.65-5.03) M/mm3 MCV (79-97) fl MCH (28-32) pg Lymph % (Auto) (13.4-35.0) % Lymph # (Auto) (1.2-5.4) K/mm3 Seg Neutrophils % (40.0-70.0) % Seg Neutrophils # (1.8-7.7) K/mm3 ABG pH (7.350-7.450) pH Units ABG pO2 (80.0-90.0) mm Hg ABG O2 Saturation (95.0-99.0) % ABG Base Excess (-2.0-3.0) mmol/L ABG Hemoglobin (12.0-16.0) gm/dl Potassium 2.8 L* (3.6-5.0) mmol/L Chloride 110.1 H (98-107) mmol/L Carbon Dioxide 18 L (22-30) mmol/L BUN 24 H (7-17) mg/dL Glucose 202 H (65-100) mg/dL Magnesium 1.60 L (1.7-2.3) mg/dL AST 100 H (5-40) units/L ALT 65 H (7-56) units/L Troponin T 0.082 H (0.00-0.029) ng/mL Total Protein 5.9 L (6.3-8.2) g/dL Albumin 2.8 L (3.9-5) g/dL Urine WBC (Auto) (0.0-6.0) /HPF Assessment and Plan - Patient Problems (1) Acute hypoxemic respiratory failure Current Visit: Yes Status: Acute Plan to address problem: Chest x-ray, supplemental oxygen, pulse oximetry, nebulizer therapy, wean vent as tolerated, daily sedation holiday, daily spontaneous breathing trial, The high probability of a clinically significant, sudden or life threatening deterioration of the [pulmonary, cardiac, neuro, renal] system(s) required my full and direct attention, intervention and personal management. The aggregate critical care time was [95] minutes. This time is in addition to time spent performing reported procedures but includes the following: [x] Data Review and interpretation [x] Patient assessment and monitoring of vital signs [x] Documentation [x] Medication orders and management (2) Aspiration pneumonia Current Visit: Yes Status: Acute Plan to address problem: Chest x-ray, supplemental oxygen, pulse oximetry, nebulizer therapy, IV antibiotic therapy, blood culture, (3) NSTEMI (non-ST elevated myocardial infarction) Current Visit: Yes Status: Acute Plan to address problem: Serial cardiac enzymes, EKG, remote telemetry, echocardiogram ordered and is pending at time of admission, supportive care. (4) Acidosis Current Visit: Yes Status: Acute Plan to address problem: IV fluid resuscitation therapy, repeat BMP in a.m. (5) UTI (urinary tract infection) Current Visit: Yes Status: Acute Qualifiers: Hematuria presence: without hematuria Plan to address problem: IV antibiotic therapy, urinalysis, supportive care. (6) GERD (gastroesophageal reflux disease) Current Visit: Yes Status: Acute Qualifiers: Esophagitis presence: without esophagitis Qualified Code(s): K21.9 - Gastro-esophageal reflux disease without esophagitis Plan to address problem: PPI therapy, supportive care (7) Malnutrition Current Visit: Yes Status: Acute Qualifiers: Malnutrition type: protein-calorie malnutrition Protein-calorie malnutrition severity: moderate Qualified Code(s): E44.0 - Moderate protein- calorie malnutrition Plan to address problem: Increase protein intake, dietary supplementation when alert and oriented only (8) Seizure disorder Current Visit: Yes Status: Acute Plan to address problem: Continue Keppra therapy, seizure precautions, supportive care. (9) Meningioma Current Visit: Yes Status: Acute Plan to address problem: Chronic, unchanged since previous evaluation. CT scan reviewed (10) CHF (congestive heart failure) Current Visit: Yes Status: Acute Qualifiers: Heart failure chronicity: chronic Plan to address problem: Strict I/O, monitor urine output every shift, daily weight, afterload reduction, blood pressure control, supplemental oxygen. (11) DVT prophylaxis Current Visit: Yes Status: Acute Plan to address problem: SCDs bilateral lower extremities while in bed, prophylactic anticoagulation (12) Advance care planning Current Visit: Yes Status: Acute Plan to address problem: Disease education conducted, care plan discussed, diagnoses discussed, prognosis discussed, patient is full code, +30 minutes.
[2021-10-23 15:12] LABS: Free T4 (Free Thyroxine) 1.81 ng/dL (0.76-1.46)
[2021-10-23] MEDS ORDERED: DEXTROSE 50% IN WATER (25GM) 50 ML SYRINGE IV PRN (15:16)
[2021-10-23] MEDS ORDERED: oxyCODONE /ACETAMINOPHEN 5-325MG TAB PO PRN (15:30)
[2021-10-23 15:51] LABS: Chol/HDL Ratio 5.61 %; HDL Cholesterol 36 mg/dL (40-59); LDL Cholesterol,Direct 139 mg/dL (50-130)
[2021-10-23] MEDS ORDERED: ACETAMINOPHEN 650 MG RECT SUPP PR PRN (16:00)
[2021-10-23] MEDS ORDERED: HYDROmorphone 1 MG/1 ML INJ IV PRN (16:00)
[2021-10-23] MEDS: POTASSIUM CHLORIDE 10 MEQ 10 MEQ/100 ML BAG IV SCH ×4 (16:57→21:49)
[2021-10-23] MEDS ORDERED: ALBUTEROL 2.5 MG/3 ML NEBU IH PRN (17:00)
[2021-10-23] MEDS ORDERED: DEXTROSE 10% *Hypoglycemia IV PRN (17:00)
[2021-10-23] MEDS: INSULIN REGULAR, HUMAN 100 UNITS/1 ML SUB-Q SCH ×2 (17:02→23:29)
[2021-10-23] MEDS ORDERED: ACETAMINOPHEN 325 MG TAB PO PRN (17:30)
--- NOTE | 2021-10-23 17:51 | XRay Report ---
XR chest 1V ap INDICATION / CLINICAL INFORMATION: Central line placement. COMPARISON: Radiograph from earlier same day. FINDINGS: SUPPORT DEVICES: Endotracheal tube terminates 8 mm above the rayray. Right IJ central venous catheter projects over the SVC. HEART /PULMONARY VASCULATURE: Unchanged. LUNGS / PLEURA: Unchanged asymmetric prominence of the right hilar region. Continued follow-up is rec ommended. No pneumothorax. IMPRESSION: 1. Satisfactory position of right IJ central venous catheter. 2. Endotracheal tube is now low-lying. Recommend retraction by approximately 3 cm. 3. Otherwise stable chest. Signer Name: Yaron Medina MD Signed: 10/23/2021 5:47 PM Workstation Name: [id number]
[2021-10-23] MEDS ORDERED: traMADol 50 MG TAB PO PRN (18:00)
--- NOTE | 2021-10-23 18:07 | Procedure Note ---
Date of procedure: 10/23/21 Pre-op diagnosis: Acute respiratory failure Post-op diagnosis: same Procedure: Right internal jugular vein triple-lumen catheter placement under ultrasound guidance The patient was prepped and draped in the usual sterile fashion. A timeout was taken with patient nurse at bedside to verify the correct patient, procedure and operative site. Local anesthesia was obtained with 1% lidocaine. Ultrasound was utilized to localize right internal jugular vein without difficulty. The Seldinger technique was utilized to access the right internal jugular vein under ultrasound guidance. A seeker needle was advanced into the right internal jugular vein under ultrasound guidance without difficulty. A guidewire was then advanced through the seeker needle into the right internal jugular vein without difficulty. The seeker needle was subsequently removed. A scalpel was used to incise the skin at the insertion site. A dilator was then passed over the guidewire into the right internal jugular vein and subsequently removed. A preflushed triple-lumen catheter was then advanced over the guidewire into the right internal jugular vein. The guidewire was then removed. All 3 ports flush and draw with ease. A Biopatch was placed at the insertion site. 3-0 nylon suture was then utilized to secure it the triple-lumen catheter in place. Postoperative chest x-ray revealed no evidence of pneumothorax and displayed triple-lumen catheter in the superior vena cava. Estimated blood loss minimal complications none specimens none. Anesthesia: local Surgeon: ECTOR DE Estimated blood loss: minimal Condition: critical Disposition: ICU
[2021-10-23] MEDS: PANTOPRAZOLE 20 MG TAB PO SCH (18:09)
[2021-10-23] MEDS: GABAPENTIN 300 MG CAP PO SCH (18:09)
[2021-10-23] MEDS: metroNIDAZOLE/NS 500 MG/100 ML 500 MG/100 ML BAG IV SCH (18:13)
[2021-10-23] MEDS ORDERED: NON-FORMULARY EACH (Hydralazine Hcl [Apresoline Tab] 50 MG Tablet) PO SCH (20:00)
[2021-10-23] MEDS ORDERED: levETIRAcetam 500 MG TAB PO SCH (22:00)
[2021-10-23] MEDS: OXYBUTYNIN 5 MG TAB PO SCH (23:29)
[2021-10-23] MEDS: HEPARIN 5,000 UNIT/1 ML VIAL SUB-Q SCH (23:29)
[2021-10-23] MEDS: hydrALAZINE 25 MG TAB PO SCH (23:29)
[2021-10-23] MEDS: PRAVASTATIN 40 MG TAB PO SCH (23:30)
[2021-10-23] MEDS: metOLazone 2.5 MG TAB PO SCH (23:30)
[2021-10-24] MEDS: metroNIDAZOLE/NS 500 MG/100 ML 500 MG/100 ML BAG IV SCH ×2 (01:49→08:33)
[2021-10-24] MEDS: hydrALAZINE 25 MG TAB PO SCH ×3 (06:08→21:26)
[2021-10-24 06:41] LABS: Basophils % (Auto) 0.3 % (0.0-1.8); Hemoglobin 11.8 gm/dl (10.1-14.3); Lymphocytes % (Auto) 13.5 % (13.4-35.0); Mean Corpuscular HGB Conc 31 % (30-34); Mean Corpuscular Volume 72 fl (79-97); Monocytes # (Auto) 0.5 K/mm3 (0.0-0.8); Monocytes % (Auto) 6.4 % (0.0-7.3); Platelet Count 172 K/mm3 (140-440); Red Blood Count 5.27 M/mm3 (3.65-5.03); Red Cell Distribution Width 14.8 % (13.2-15.2)
[2021-10-24] MEDS: INSULIN REGULAR, HUMAN 100 UNITS/1 ML SUB-Q SCH ×3 (06:44→18:07)
[2021-10-24 06:52] LABS: Blood Urea Nitrogen 24 mg/dL (7-17); Calcium 8.6 mg/dL (8.4-10.2); Hemolysis Index 9
[2021-10-24 07:01] LABS: BUN/Creatinine Ratio 40
[2021-10-24] MEDS: PANTOPRAZOLE 20 MG TAB PO SCH (08:30)
--- NOTE | 2021-10-24 09:19 | XRay Report ---
CHEST - 1 VIEW INDICATION: F/U, intubated COMPARISON: Yesterday FINDINGS: SUPPORT DEVICES: New nasogastric tube with tip near the GE junction should be advanced another 5-10 cm. Otherwise unchanged support device positioning. Of note, the endotracheal tube remains below the level of the clavicles and should be retracted 2-3 cm. HEART: Stable cardiomediastinal silhouette. LUNGS/PLEURA: Clear lungs. ADDITIONAL FINDINGS: None. IMPRESSION: Support devices as above. Clear lungs. Signer Name: Nikhil Rooney MD Signed: 10/24/2021 9:15 AM Workstation Name: [id number]
[2021-10-24 09:50] LABS: ABG Base Excess -1.3 mmol/L (-2.0-3.0); ABG HCO3 20.7 mmol/L (20.0-26.0); ABG Methemoglobin 0.4 % (0.0-1.5); ABG Oxygen Saturation 98.7 % (95.0-99.0); ABG PCO2 27.2 mm Hg; ABG PH 7.5 pH Units (7.350-7.450)
[2021-10-24] MEDS ORDERED: NON-FORMULARY EACH (Oxybutynin Chloride [Ditropan Xl] 10 MG Tab.Er.24) PO SCH (10:00)
[2021-10-24] MEDS ORDERED: [UNRECOGNIZED DRUG - REMARK] PO SCH (10:00)
[2021-10-24] MEDS ORDERED: NON-FORMULARY EACH (Simvastatin [Simvastatin] 20 MG Tablet) PO SCH (10:00)
[2021-10-24] MEDS ORDERED: NON-FORMULARY EACH (Omeprazole [Prilosec] 20 MG Capsule.Dr) PO SCH (10:00)
--- NOTE | 2021-10-24 10:26 | Progress Note ---
<JING BRAGG - Last Filed: 10/24/21 16:34> Assessment and Plan Assessment and plan: This is a 89-year-old female with past medical history of CHF, HTN, DM, Seizure disorder, meningioma, OA, and malnutrition admitted for acute hypoxemic respiratory failure secondary to aspiration pneumonia requiring ventilatory support. Hospital Course to Date: 10/24: Intubated and sedated, RASS-5 on versed gtt, on low vent setting. Will do a sedation vacation to assess patient's mental status. Patient was on amio gtt for VTACH/Afib, now on hold due to bradycardia. Patient is SR on the monitor this am, HR 60-70s, not on any pressors. Pending cardiology consult. Patient is afebrile, wbcs normal, with no report of any diarrhea/loose stools, will hold flagyl for now. Continue IV Levaquin for now, COVID PCR result is pending. Assessment and Plan #Acute hypoxemic respiratory failure #Aspiration Pneumonia #COVID PUI - Found with agonal breathing, unable to protect airway at home - 2/2 Intubate in the field by EMS - Vent Setting: PRVC-30%,6,20,450 - On sedation, plan for sedation vacation for possible SAT/SBT - CCM consulted, appreciate recommendations - On IV Antibiotics - VAP bundle addressed - Aspiration precaution HOB above 30 - Daily SBT and SAT trials as tolerated - Daily ABG and CXR - Continue SPO2 monitoring for SPO2 goal above 92% #NSTEMI (non-ST elevated myocardial infarction) #Atrial Fibrilation #CHF (congestive heart failure) #?? VTACH - Troponin leak on admit- EKG with no ST changes - Report of possible VTACH/AFIb on admit - Was on Amio gtt in the ED, now on Hold due to bradycardia - Patient is SR on the monitor this am, BP stable - 2D Echo is pending - Home meds resumed - monitor urine output every shift - daily weight - Monitor and replace electrolytes as needed - Continue blood pressure monitor per protocol - Cardiology consulted #UTI (urinary tract infection) - UA with pyuria, urine culture pending - Lactic normal, will check a procal - On IV Abx - Continue to F/u on culture date #Seizure disorder #Meningioma - Patient has a history - CT head reviewed - Continue Keppra therapy - seizure precautions - supportive care #Type 2 Diabetes - SSI Q6hrs - Avoid hypoglycemia #GI/DVT prophylaxis - Continue PPI- Prevacid - Continue AC- Heparin SubQ - SCDs bilateral lower extremities while in bed The high probability of a clinically significant, sudden or life threatening deterioration of the [multiple] system(s) required my full and direct attention, intervention and personal management. The aggregate critical care time was [60] minutes. This time is in addition to time spent performing reported procedures but includes the following: [x] Data Review and interpretation [x] Patient assessment and monitoring of vital signs [x] Documentation [x] Medication orders and management Disposition Plan: ICU Total Time Spent with Patient (Minutes): 60 History Interval history: Patient seen and examined at the bedside. Intubated and sedated, RASS-5. Per RN was runs of VTACH and Afib in the ED was started on Amio gtt, however amio drip was discontinued this am due to bradycardia, HR in the 50s. Patient is SR on the monitor, HR in the 60-70s with runs of PVCs Hospitalist Physical - Constitutional Vitals: Temp Pulse Resp BP Pulse Ox 98.3 F 61 20 113/64 99 10/23/21 22:56 10/24/21 09:22 10/24/21 09:00 10/24/21 09:22 10/24/21 09:22 General appearance: Present: no acute distress, other (Intubated and sedated) - EENT Eyes: Present: PERRL ENT: hearing intact - Neck Neck: Present: normal ROM - Respiratory Respiratory effort: normal Respiratory: bilateral: rhonchi - Cardiovascular Rhythm: regular Heart Sounds: Present: S1 & S2 - Extremities Extremities: no ischemia, pulses intact, pulses symmetrical Extremity abnormal: edema - Peripheral Assessment Generalized Edema Type: Non-pitting Edema Degree: 1+ Capillary Refill: < 3 seconds Skin Temperature: Warm Peripheral Pulses: within normal limits - Abdominal General gastrointestinal: soft, non-distended, hypoactive bowel sounds - Integumentary Integumentary: Present: warm, dry - Psychiatric Psychiatric: other (Intubated and Sedated) - Neurologic Neurologic: other (Intubated and Sedated) - Allied Health Allied health notes reviewed: nursing HEART Score - HEART Score Troponin: Troponin T 0.365 ng/mL (0.00-0.029) H* 10/24/21 05:30 Results - Labs CBC & Chem 7: 10/24/21 05:30 10/24/21 05:30 Labs: Laboratory Last Values WBC 7.3 K/mm3 (4.5-11.0) 10/24/21 05:30 RBC 5.27 M/mm3 (3.65-5.03) H 10/24/21 05:30 Hgb 11.8 gm/dl (10.1-14.3) 10/24/21 05:30 Hct 38.0 % (30.3-42.9) 10/24/21 05:30 MCV 72 fl (79-97) L 10/24/21 05:30 MCH 22 pg (28-32) L 10/24/21 05:30 MCHC 31 % (30-34) 10/24/21 05:30 RDW 14.8 % (13.2-15.2) 10/24/21 05:30 Plt Count 172 K/mm3 (140-440) 10/24/21 05:30 Lymph % (Auto) 13.5 % (13.4-35.0) 10/24/21 05:30 [place] % (Auto) 6.4 % (0.0-7.3) 10/24/21 05:30 Eos % (Auto) 0.0 % (0.0-4.3) 10/24/21 05:30 Baso % (Auto) 0.3 % (0.0-1.8) 10/24/21 05:30 Lymph # (Auto) 1.0 K/mm3 (1.2-5.4) L 10/24/21 05:30 [place] # (Auto) 0.5 K/mm3 (0.0-0.8) 10/24/21 05:30 Eos # (Auto) 0.0 K/mm3 (0.0-0.4) 10/24/21 05:30 Baso # (Auto) 0.0 K/mm3 (0.0-0.1) 10/24/21 05:30 Seg Neutrophils % 79.8 % (40.0-70.0) H 10/24/21 05:30 Seg Neutrophils # 5.8 K/mm3 (1.8-7.7) 10/24/21 05:30 PT 14.3 Sec. (12.2-14.9) 10/23/21 Unknown INR 1.00 (0.87-1.13) 10/23/21 Unknown APTT 22.0 Sec. (24.2-36.6) L 10/23/21 Unknown ABG pH 7.500 pH Units (7.350-7.450) H 10/24/21 09:35 ABG pCO2 27.2 mm Hg 10/24/21 09:35 ABG pO2 126.0 mm Hg (80.0-90.0) H 10/24/21 09:35 ABG HCO3 20.7 mmol/L (20.0-26.0) 10/24/21 09:35 ABG O2 Saturation 98.7 % (95.0-99.0) 10/24/21 09:35 ABG O2 Content 16.7 (0.0-44) 10/24/21 09:35 ABG Base Excess -1.3 mmol/L (-2.0-3.0) 10/24/21 09:35 ABG Hemoglobin 12.1 gm/dl (12.0-16.0) 10/24/21 09:35 ABG Carboxyhemoglobin 1.1 % (0.0-5.0) 10/24/21 09:35 ABG Methemoglobin 0.4 % (0.0-1.5) 10/24/21 09:35 VBG pH Cancelled 10/23/21 13:35 Oxyhemoglobin 97.1 % (95.0-99.0) 10/24/21 09:35 FiO2 30 % 10/24/21 09:35 Sodium 138 mmol/L (137-145) 10/24/21 05:30 Potassium 3.9 mmol/L (3.6-5.0) D 10/24/21 05:30 Chloride 105.6 mmol/L (98-107) 10/24/21 05:30 Carbon Dioxide 22 mmol/L (22-30) 10/24/21 05:30 Anion Gap 14 mmol/L 10/24/21 05:30 BUN 24 mg/dL (7-17) H 10/24/21 05:30 Creatinine 0.6 mg/dL (0.6-1.2) 10/24/21 05:30 Estimated GFR > 60 ml/min 10/24/21 05:30 BUN/Creatinine Ratio 40 % 10/24/21 05:30 Glucose 98 mg/dL (65-100) 10/24/21 05:30 POC Glucose 105 mg/dL (70-105) 10/24/21 06:33 Lactic Acid 1.70 mmol/L (0.7-2.0) 10/23/21 Unknown Calcium 8.6 mg/dL (8.4-10.2) 10/24/21 05:30 Magnesium 1.60 mg/dL (1.7-2.3) L 10/23/21 Unknown Total Bilirubin 0.50 mg/dL (0.1-1.2) 10/23/21 Unknown AST 100 units/L (5-40) H 10/23/21 Unknown ALT 65 units/L (7-56) H 10/23/21 Unknown Alkaline Phosphatase 75 units/L (35-129) 10/23/21 Unknown Ammonia 49.0 umol/L (25-60) 10/23/21 Unknown Troponin T 0.365 ng/mL (0.00-0.029) H* 10/24/21 05:30 Total Protein 5.9 g/dL (6.3-8.2) L 10/23/21 Unknown Albumin 2.8 g/dL (3.9-5) L 10/23/21 Unknown Albumin/Globulin Ratio 0.9 % 10/23/21 Unknown Triglycerides 90 mg/dL (2-149) 10/23/21 Unknown Cholesterol 202 mg/dL (50-199) H 10/23/21 Unknown LDL Cholesterol Direct 139 mg/dL (50-130) H 10/23/21 Unknown HDL Cholesterol 36 mg/dL (40-59) L 10/23/21 Unknown Cholesterol/HDL Ratio 5.61 % 10/23/21 Unknown TSH 0.771 mlU/mL (0.270-4.200) 10/23/21 Unknown Free T4 1.81 ng/dL (0.76-1.46) H 10/23/21 Unknown Urine Color Yellow (Yellow) 10/23/21 Unknown Urine Turbidity Slightly-cloudy (Clear) 10/23/21 Unknown Urine pH 6.0 (5.0-7.0) 10/23/21 Unknown Ur Specific Ledbetter 1.023 (1.003-1.030) 10/23/21 Unknown Urine Protein 100 mg/dl mg/dL (Negative) 10/23/21 Unknown Urine Glucose (UA) Neg mg/dL (Negative) 10/23/21 Unknown Urine Ketones Tr mg/dL (Negative) 10/23/21 Unknown Urine Blood Mod (Negative) 10/23/21 Unknown Urine Nitrite Neg (Negative) 10/23/21 Unknown Urine Bilirubin Neg (Negative) 10/23/21 Unknown Urine Urobilinogen 4.0 mg/dL (<2.0) 10/23/21 Unknown Ur Leukocyte Esterase Lg (Negative) 10/23/21 Unknown Urine WBC (Auto) 45.0 /HPF (0.0-6.0) H 10/23/21 Unknown Urine RBC (Auto) 30.0 /HPF (0.0-6.0) 10/23/21 Unknown U Epithel Cells (Auto) < 1.0 /HPF (0-13.0) 10/23/21 Unknown Urine Bacteria (Auto) 1+ /HPF (Negative) 10/23/21 Unknown Urine Mucus Few /HPF 10/23/21 Unknown Urine Yeast (Budding) 1+ /HPF 10/23/21 Unknown Microbiology: Microbiology 10/23/21 13:25 Tracheal Aspirate Sputum Culture - Preliminary 10/23/21 Unknown Urine,Clean Catch Urine Culture - Preliminary NO GROWTH AFTER 24 HOURS Gonzalez/IV: Voiding Method Indwelling Catheter Active Medications - Current Medications Current Medications: Generic Name Dose Route Start Last Admin Trade Name Freq PRN Reason Stop Dose Admin Acetaminophen 650 mg 10/23/21 16:00 Acetaminophen 650 Mg Rect Supp RI Q6H PRN Pain MILD(1-3)/Fever >100.5/MARTINEZ Acetaminophen 650 mg 10/23/21 17:30 Acetaminophen 325 Mg Tab PO Q6H PRN Pain, Mild (1-3) Albuterol 2.5 mg 10/23/21 17:00 Albuterol 2.5 Mg/3 Ml Nebu IH Q3HRT PRN Shortness Of Breath Lipase/Protease/Amylase 1 each 10/24/21 10:19 Lipase 10,500/Protease 25,000/Amylase 43,750 (Units) Cap FEEDTUBE PRN PRN For Clogged Feeding Tube Aspirin 81 mg 10/24/21 10:00 Aspirin 81 Mg Tab Chew PO QDAY JANET Dextrose 0 ml 10/23/21 17:00 Dextrose 10% *Hypoglycemia IV PRN PRN Hypoglycemia Fentanyl 50 mcg 10/24/21 10:18 Fentanyl 100 Mcg/2 Ml Inj IV Q10MIN PRN ANALGESIA Furosemide 20 mg 10/24/21 10:00 Furosemide 20 Mg Tab PO QDAY JANET Gabapentin 300 mg 10/23/21 18:00 10/23/21 18:09 Gabapentin 300 Mg Cap PO Not Given QPM [facility] Heparin Sodium (Porcine) 5,000 unit 10/23/21 22:00 10/23/21 23:29 Heparin 5,000 Unit/1 Ml Vial SUB-Q 5,000 unit Q12HR JANET Administration Hydralazine HCl 25 mg 10/23/21 22:00 10/24/21 06:08 Hydralazine 25 Mg Tab PO Not Given Q8HR JANET Hydromorphone HCl 0.5 mg 10/23/21 16:00 Hydromorphone 1 Mg/1 Ml Inj IV Q23H PRN Pain , Severe (7-10) Amiodarone HCl 900 mg/ 500 mls @ 33.333 mls/hr 10/23/21 14:00 10/24/21 04:30 Dextrose IV 0 mg/min DIRECT JANET 0 mls/hr Titration Protocol 1 MG/MIN Levofloxacin/Dextrose 750 mg in 150 mls @ 100 mls/hr 10/23/21 17:00 10/23/21 20:57 Levaquin 750mg/150ml IV 100 mls/hr Q48H [facility] Administration Protocol Metronidazole 500 mg in 100 mls @ 100 mls/hr 10/23/21 17:00 10/24/21 08:33 Flagyl 500 Mg/100 Ml IV 100 mls/hr Q8H [facility] Administration Protocol Fentanyl Citrate 2,000 mcg in 100 mls @ 2 mls/hr 10/24/21 11:00 Fentanyl Drip Premix IV TITR JANET Protocol 1 MCG/KG/HR Magnesium Sulfate 4 gm in 100 mls @ 25 mls/hr 10/24/21 10:24 Magnesium Sulfate 4gm/100ml IV 10/24/21 14:23 ONCE ONE Insulin Human Regular 0 units 10/23/21 16:00 10/24/21 06:44 Insulin Regular, Human 100 Units/1 Ml SUB-Q Not Given Q6H [facility] Protocol Levetiracetam 500 mg 10/23/21 22:00 10/23/21 23:30 Levetiracetam 500 Mg Tab PO 500 mg BID JANET Administration Metolazone 2.5 mg 10/23/21 22:00 10/23/21 23:30 Metolazone 2.5 Mg Tab PO 2.5 mg BID JANET Administration Multivit/Ca Carb/B Cmplx/FA/Prenat 1 cap 10/24/21 10:00 Folic Acid/Vit B Comp W-C 1 Mg (Renal Caps) PO QDAY JANET Oxybutynin Chloride 5 mg 10/23/21 22:00 10/23/21 23:29 Oxybutynin 5 Mg Tab PO 5 mg BID JANET Administration Oxycodone/Acetaminophen 1 tab 10/23/21 15:30 Oxycodone /Acetaminophen 5-325mg Tab PO Q16H PRN Pain, Moderate (4-6) Pantoprazole Sodium 20 mg 10/23/21 17:30 10/24/21 08:30 Pantoprazole 20 Mg Tab PO 20 mg QDAC JANET Administration Pravastatin Sodium 40 mg 10/23/21 22:00 10/23/21 23:30 Pravastatin 40 Mg Tab PO 40 mg QHS JANET Administration Simple Syrup 15 ml 10/24/21 10:19 Simple Syrup 15 Ml FEEDTUBE PRN PRN Hypoglycemia Simple Syrup 30 ml 10/24/21 10:19 Simple Syrup 15 Ml FEEDTUBE PRN PRN Hypoglycemia Sodium Bicarbonate 325 mg 10/24/21 10:19 Sodium Bicarbonate 325 Mg Tab FEEDTUBE PRN PRN For Clogged Feeding Tube Sodium Chloride 10 ml 10/23/21 22:00 10/23/21 23:30 Sodium Chloride 0.9% 10 Ml Flush Syringe IV 10 ml BID JANET Administration Sodium Chloride 10 ml 10/23/21 16:00 Sodium Chloride 0.9% 10 Ml Flush Syringe IV PRN PRN LINE FLUSH Sodium Chloride 10 ml 10/23/21 18:00 Sodium Chloride 0.9% 10 Ml Flush Syringe IV PRN PRN LINE FLUSH Tramadol HCl 50 mg 10/23/21 18:00 Tramadol 50 Mg Tab PO Q6H PRN Pain, Moderate (4-6) <KEN REGAN E - Last Filed: 10/25/21 07:41> Assessment and Plan Assessment and plan: I saw and evaluated the patient. I agree with the findings and the plan of care as documented in the Nurse Practitioner's~note, with the following corrections and additions. Hospitalist Physical - Constitutional Vitals: Temp Pulse Resp BP Pulse Ox 98.5 F 79 27 H 115/73 100 10/25/21 04:00 10/25/21 06:31 10/25/21 06:31 10/25/21 06:31 10/25/21 06:31 HEART Score - HEART Score Troponin: Troponin T 0.365 ng/mL (0.00-0.029) H* 10/24/21 05:30 Results - Labs CBC & Chem 7: 10/25/21 04:29 10/25/21 04:29 Labs: Laboratory Last Values WBC 7.9 K/mm3 (4.5-11.0) 10/25/21 04:29 RBC 5.58 M/mm3 (3.65-5.03) H 10/25/21 04:29 Hgb 12.1 gm/dl (10.1-14.3) 10/25/21 04:29 Hct 39.7 % (30.3-42.9) 10/25/21 04:29 MCV 71 fl (79-97) L 10/25/21 04:29 MCH 22 pg (28-32) L 10/25/21 04:29 MCHC 30 % (30-34) 10/25/21 04:29 RDW 14.7 % (13.2-15.2) 10/25/21 04:29 Plt Count 268 K/mm3 (140-440) 10/25/21 04:29 Lymph % (Auto) 13.5 % (13.4-35.0) 10/24/21 05:30 [place] % (Auto) 6.4 % (0.0-7.3) 10/24/21 05:30 Eos % (Auto) 0.0 % (0.0-4.3) 10/24/21 05:30 Baso % (Auto) 0.3 % (0.0-1.8) 10/24/21 05:30 Lymph # (Auto) 1.0 K/mm3 (1.2-5.4) L 10/24/21 05:30 [place] # (Auto) 0.5 K/mm3 (0.0-0.8) 10/24/21 05:30 Eos # (Auto) 0.0 K/mm3 (0.0-0.4) 10/24/21 05:30 Baso # (Auto) 0.0 K/mm3 (0.0-0.1) 10/24/21 05:30 Seg Neutrophils % 79.8 % (40.0-70.0) H 10/24/21 05:30 Seg Neutrophils # 5.8 K/mm3 (1.8-7.7) 10/24/21 05:30 PT 14.3 Sec. (12.2-14.9) 10/23/21 Unknown INR 1.00 (0.87-1.13) 10/23/21 Unknown APTT 22.0 Sec. (24.2-36.6) L 10/23/21 Unknown ABG pH 7.445 pH Units (7.350-7.450) 10/24/21 Unknown ABG pCO2 32.0 mm Hg 10/24/21 Unknown ABG pO2 122.4 mm Hg (80.0-90.0) H 10/24/21 Unknown ABG HCO3 21.5 mmol/L (20.0-26.0) 10/24/21 Unknown ABG O2 Saturation 98.5 % (95.0-99.0) 10/24/21 Unknown ABG O2 Content 17.5 (0.0-44) 10/24/21 Unknown ABG Base Excess -1.8 mmol/L (-2.0-3.0) 10/24/21 Unknown ABG Hemoglobin 12.7 gm/dl (12.0-16.0) 10/24/21 Unknown ABG Carboxyhemoglobin 1.1 % (0.0-5.0) 10/24/21 Unknown ABG Methemoglobin 0.5 % (0.0-1.5) 10/24/21 Unknown VBG pH Cancelled 10/23/21 13:35 Oxyhemoglobin 96.9 % (95.0-99.0) 10/24/21 Unknown FiO2 30 % 10/24/21 Unknown Sodium 138 mmol/L (137-145) 10/25/21 04:29 Potassium 3.2 mmol/L (3.6-5.0) L 10/25/21 04:29 Chloride 101.0 mmol/L (98-107) 10/25/21 04:29 Carbon Dioxide 25 mmol/L (22-30) 10/25/21 04:29 Anion Gap 15 mmol/L 10/25/21 04:29 BUN 21 mg/dL (7-17) H 10/25/21 04:29 Creatinine 0.8 mg/dL (0.6-1.2) 10/25/21 04:29 Estimated GFR > 60 ml/min 10/25/21 04:29 BUN/Creatinine Ratio 26 % 10/25/21 04:29 Glucose 119 mg/dL (65-100) H 10/25/21 04:29 POC Glucose 128 mg/dL (70-105) H 10/25/21 06:08 Lactic Acid 1.70 mmol/L (0.7-2.0) 10/23/21 Unknown Calcium 9.1 mg/dL (8.4-10.2) 10/25/21 04:29 Phosphorus 2.80 mg/dL (2.5-4.5) 10/25/21 04:29 Magnesium 2.30 mg/dL (1.7-2.3) 10/25/21 04:29 Total Bilirubin 0.50 mg/dL (0.1-1.2) 10/23/21 Unknown AST 100 units/L (5-40) H 10/23/21 Unknown ALT 65 units/L (7-56) H 10/23/21 Unknown Alkaline Phosphatase 75 units/L (35-129) 10/23/21 Unknown Ammonia 49.0 umol/L (25-60) 10/23/21 Unknown Troponin T 0.365 ng/mL (0.00-0.029) H* 10/24/21 05:30 C-Reactive Protein 7.10 mg/dL (0.00-1.30) H 10/24/21 16:11 Total Protein 5.9 g/dL (6.3-8.2) L 10/23/21 Unknown Albumin 2.8 g/dL (3.9-5) L 10/23/21 Unknown Albumin/Globulin Ratio 0.9 % 10/23/21 Unknown Triglycerides 90 mg/dL (2-149) 10/23/21 Unknown Cholesterol 202 mg/dL (50-199) H 10/23/21 Unknown LDL Cholesterol Direct 139 mg/dL (50-130) H 10/23/21 Unknown HDL Cholesterol 36 mg/dL (40-59) L 10/23/21 Unknown Cholesterol/HDL Ratio 5.61 % 10/23/21 Unknown TSH 0.771 mlU/mL (0.270-4.200) 10/23/21 Unknown Free T4 1.81 ng/dL (0.76-1.46) H 10/23/21 Unknown Urine Color Yellow (Yellow) 10/23/21 Unknown Urine Turbidity Slightly-cloudy (Clear) 10/23/21 Unknown Urine pH 6.0 (5.0-7.0) 10/23/21 Unknown Ur Specific Ledbetter 1.023 (1.003-1.030) 10/23/21 Unknown Urine Protein 100 mg/dl mg/dL (Negative) 10/23/21 Unknown Urine Glucose (UA) Neg mg/dL (Negative) 10/23/21 Unknown Urine Ketones Tr mg/dL (Negative) 10/23/21 Unknown Urine Blood Mod (Negative) 10/23/21 Unknown Urine Nitrite Neg (Negative) 10/23/21 Unknown Urine Bilirubin Neg (Negative) 10/23/21 Unknown Urine Urobilinogen 4.0 mg/dL (<2.0) 10/23/21 Unknown Ur Leukocyte Esterase Lg (Negative) 10/23/21 Unknown Urine WBC (Auto) 45.0 /HPF (0.0-6.0) H 10/23/21 Unknown Urine RBC (Auto) 30.0 /HPF (0.0-6.0) 10/23/21 Unknown U Epithel Cells (Auto) < 1.0 /HPF (0-13.0) 10/23/21 Unknown Urine Bacteria (Auto) 1+ /HPF (Negative) 10/23/21 Unknown Urine Mucus Few /HPF 10/23/21 Unknown Urine Yeast (Budding) 1+ /HPF 10/23/21 Unknown Coronavirus (PCR) Positive (Negative) A 10/24/21 08:20 Microbiology: Microbiology 10/23/21 13:25 Tracheal Aspirate Sputum Culture - Preliminary 10/23/21 Unknown Urine,Clean Catch Urine Culture - Preliminary NO GROWTH AFTER 24 HOURS Gonzalez/IV: Voiding Method External Female Catheter Active Medications - Current Medications Current Medications: Generic Name Dose Route Start Last Admin Trade Name Freq PRN Reason Stop Dose Admin Acetaminophen 650 mg 10/23/21 16:00 Acetaminophen 650 Mg Rect Supp RI Q6H PRN Pain MILD(1-3)/Fever >100.5/MARTINEZ Acetaminophen 650 mg 10/23/21 17:30 Acetaminophen 325 Mg Tab PO Q6H PRN Pain, Mild (1-3) Albuterol 2.5 mg 10/23/21 17:00 Albuterol 2.5 Mg/3 Ml Nebu IH Q3HRT PRN Shortness Of Breath Lipase/Protease/Amylase 1 each 10/24/21 10:30 Lipase 10,500/Protease 25,000/Amylase 43,750 (Units) Dr Stone FEEDTUBE PRN PRN For Clogged Feeding Tube Aspirin 81 mg 10/24/21 10:00 10/24/21 17:09 Aspirin 81 Mg Tab Chew PO 81 mg QDAY JANET Administration Dextrose 0 ml 10/23/21 17:00 Dextrose 10% *Hypoglycemia IV PRN PRN Hypoglycemia Fentanyl 50 mcg 10/24/21 10:30 Fentanyl 100 Mcg/2 Ml Inj IV Q10MIN PRN ANALGESIA Furosemide 20 mg 10/24/21 10:00 10/24/21 17:09 Furosemide 20 Mg Tab PO 20 mg QDAY JANET Administration Gabapentin 300 mg 10/23/21 18:00 10/24/21 17:08 Gabapentin 300 Mg Cap PO 300 mg QPM JANET Administration Heparin Sodium (Porcine) 5,000 unit 10/23/21 22:00 10/24/21 21:27 Heparin 5,000 Unit/1 Ml Vial SUB-Q 5,000 unit Q12HR JANET Administration Hydralazine HCl 25 mg 10/23/21 22:00 10/24/21 21:26 Hydralazine 25 Mg Tab PO 25 mg Q8HR JANET Administration Hydromorphone HCl 0.5 mg 10/23/21 16:00 Hydromorphone 1 Mg/1 Ml Inj IV Q23H PRN Pain , Severe (7-10) Amiodarone HCl 900 mg/ 500 mls @ 33.333 mls/hr 10/23/21 14:00 10/24/21 04:30 Dextrose IV 0 mg/min DIRECT JANET 0 mls/hr Titration Protocol 1 MG/MIN Levofloxacin/Dextrose 750 mg in 150 mls @ 100 mls/hr 10/23/21 17:00 10/23/21 20:57 Levaquin 750mg/150ml IV 100 mls/hr Q48H JANET Administration Protocol Fentanyl Citrate 2,000 mcg in 100 mls @ 2 mls/hr 10/24/21 11:00 Fentanyl Drip Premix IV TITR JANET Protocol 1 MCG/KG/HR Insulin Human Regular 0 units 10/23/21 16:00 10/25/21 00:13 Insulin Regular, Human 100 Units/1 Ml SUB-Q Not Given Q6H JANET Protocol Lansoprazole 30 mg 10/25/21 10:00 Lansoprazole 30 Mg Solutab FEEDTUBE QDAY JANET Levetiracetam 500 mg 10/24/21 22:00 10/24/21 21:26 Levetiracetam 500 Mg/5 Ml Oral Liqd PO 500 mg BID JANET Administration Metolazone 2.5 mg 10/23/21 22:00 10/24/21 21:27 Metolazone 2.5 Mg Tab PO 2.5 mg BID JANET Administration Multivit/Ca Carb/B Cmplx/FA/Prenat 1 cap 10/24/21 10:00 10/24/21 17:08 Folic Acid/Vit B Comp W-C 1 Mg (Renal Caps) PO 1 cap QDAY JANET Administration Oxybutynin Chloride 5 mg 10/23/21 22:00 10/24/21 21:26 Oxybutynin 5 Mg Tab PO 5 mg BID JANET Administration Oxycodone/Acetaminophen 1 tab 10/23/21 15:30 Oxycodone /Acetaminophen 5-325mg Tab PO Q16H PRN Pain, Moderate (4-6) Pravastatin Sodium 40 mg 10/23/21 22:00 10/24/21 21:26 Pravastatin 40 Mg Tab PO 40 mg QHS JANET Administration Simple Syrup 15 ml 10/24/21 10:30 Simple Syrup 15 Ml FEEDTUBE PRN PRN Hypoglycemia Simple Syrup 30 ml 10/24/21 10:30 Simple Syrup 15 Ml FEEDTUBE PRN PRN Hypoglycemia Sodium Bicarbonate 325 mg 10/24/21 10:30 Sodium Bicarbonate 325 Mg Tab FEEDTUBE PRN PRN For Clogged Feeding Tube Sodium Chloride 10 ml 10/23/21 22:00 10/24/21 21:27 Sodium Chloride 0.9% 10 Ml Flush Syringe IV 10 ml BID JANET Administration Sodium Chloride 10 ml 10/23/21 16:00 Sodium Chloride 0.9% 10 Ml Flush Syringe IV PRN PRN LINE FLUSH Sodium Chloride 10 ml 10/24/21 12:00 Sodium Chloride 0.9% 50 Ml Ivpb IV PRN PRN Line flush Tramadol HCl 50 mg 10/23/21 18:00 Tramadol 50 Mg Tab PO Q6H PRN Pain, Moderate (4-6) Nutrition/Malnutrition Assess - Dietary Evaluation Nutrition/Malnutrition Findings: Nutrition Notes Start: 10/24/21 10:42 Freq: Status: Active Protocol: Document 10/24/21 10:42 NAYNA (Rec: 10/24/21 11:22 NAYAN [id number]) Nutrition Notes Need for Assessment generated from: MD Order,Low BMI Initial or Follow up Assessment Current Diagnosis Diabetes,Hypertension, Respiratory Failure, Malnutrition Other Pertinent Diagnosis Pneumonia, UTI, NSTEMI, CHF, OA, Seizure, Meningioma, COVID -19 pui. Current Diet TF-Promote @ 38 ml/hr (since L 10/24). Labs/Tests 10/24: BUN 24. Pertinent Medications 10/24: Nutritionally unremarkable. Height 5 ft Weight 40 kg [place] Body Weight (kg) 45.45 BMI 17.2 Weight change and time frame None reported at admission. Weight Status Underweight Subjective/Other Information RD consult for Low BMI assessment and write/manage TF . Pt currently on NPO. Pt on mechanical ventilation. Pt has missing teeth and is swallow impaired, according to Physical Assessment History notes. Procedure 10/23: R-internal jugular vein triple-lumen cathter placement. Pt's Low BMI seems to correspond to a natural body composition, and not related to a sudden loss of body weight nor chronic malnutrition, since none were mentioned in the Physical Assessment History or the Progress notes. Percent of energy/protein needs met: Prescribed Promote @ 38 ml/hr provides for energy/protein needs (904 Kcal/57 g) during LOS, 100% Kcal; 100% AA. Burn Absent Trauma Absent GI Symptoms None Difficulty In Swallowing,Chewing Food Allergy No Skin Integrity/Comment Clear, warm, dry. Current % PO Other Minimum of two criteria No #1 Nutrition Diagnosis Inadequate oral intake, Underweight Etiology Pt on mechanical ventilation. As Evidenced by Signs and Symptoms Pt is currently on NPO. Is patient on ventilator? Yes Is Patient Ambulatory and/or Out of Bed No REE-([place]-St. Jeor-confined to bed) [phone] Calculation Used for Recommendations [place]-[facility] Jeor Additional Notes Protein: 1.2-1.5 g/Kg; 48-60 g /day. Fluids: 1 ml/Kcal, or as per MD. Nutrition Intervention Nutrition Support: Start Promote @ 38 ml/hr. Flush: 25 ml water Q 4 hr, or as per MD. Kcal 904 Protein (gm) 57 Carbohydrates (gm) 118 Fat (gm) 24 Fluid (mL) 759 Fiber (gm) 0 % RDI: 100% Kcal; 100% AA. Goal #1 Provide at least 75% of energy /protein needs through Enteral Feeding during LOS. Goal #2 Maintain body weight within +/ -3% of admission body weight during LOS. Follow-Up By: 10/25/21 Additional Comments Continue monitoring TF tolerance and BM.
[2021-10-24] MEDS ORDERED: SODIUM BICARBONATE 325 MG TAB FEEDTUBE PRN (10:30)
[2021-10-24] MEDS ORDERED: SIMPLE SYRUP 15 ML FEEDTUBE PRN ×2 (10:30)
[2021-10-24] MEDS ORDERED: LIPASE 10,500/PROTEASE 25,000/AMYLASE 43,750 (UNITS) DR CAP FEEDTUBE PRN (10:30)
[2021-10-24] MEDS ORDERED: fentaNYL 100 MCG/2 ML INJ IV PRN (10:30)
[2021-10-24] MEDS: OXYBUTYNIN 5 MG TAB PO SCH ×2 (10:35→21:26)
[2021-10-24] MEDS: metOLazone 2.5 MG TAB PO SCH ×2 (10:35→21:27)
[2021-10-24] MEDS: HEPARIN 5,000 UNIT/1 ML VIAL SUB-Q SCH ×2 (10:36→21:27)
[2021-10-24] MEDS ORDERED: fentaNYL DRIP Premix 2,000 MCG/100 ML BAG IV SCH (11:00)
[2021-10-24] MEDS ORDERED: MAGNESIUM SULFATE 4 GM/100 ML BAG IV SCH (11:00)
[2021-10-24] MEDS ORDERED: SODIUM CHLORIDE 0.9% 50 ML IVPB IV PRN (12:00)
--- NOTE | 2021-10-24 12:04 | Consultation ---
History of Present Illness Consult date: 10/24/21 Consult reason: other (Cardiopulmonary arrest) History of present illness: Patient is a frail 89-year-old woman who was brought to the hospital following an out of hospital cardiopulmonary arrest. The patient was noted by family me mbers at home to have suddenly become unresponsive, she was reportedly intubated on the field for agonal respirations, and is currently in the ICU, unresponsive on the vent. Cardiology consultation was requested for "V. tach", but I do not find any telemetry strips or EKGs in the chart documenting a ventricular arrhythmia. Instead, several ECGs all show a sinus rhythm with first-degree AV block, left axis deviation and left ventricular hypertrophy. No ischemic ST or T wave changes. Patient's hospital records report chronic uncontrolled hypertension, and normal Lexiscan thallium stress test done 5 years ago. Otherwise, no significant documented cardiac history. Chest x-ray shows a mild to moderate cardiomegaly, but most significantly bilateral hilar fullness of uncertain etiology. There is no interstitial edema or pulmonary infiltrates. Laboratory exam do show a mild elevation of serial troponin levels. Past History Past Medical History: other (Past cardiac history unknown) Past Surgical History: hysterectomy, total knee replacement Social history: . denies: smoking, alcohol abuse Family history: hypertension Medications and Allergies Allergies Allergy/AdvReac Type Severity Reaction Status Date / Time No Known Allergies Allergy Verified 10/02/14 20:10 Home Medications Medication Instructions Recorded Confirmed Last Taken Type Aspirin [Aspirin BABY CHEW TAB] 81 mg PO QDAY 10/02/14 02/20/19 Unknown History Furosemide [Lasix TAB] 20 mg PO QDAY 10/02/14 02/20/19 Unknown History Gabapentin 300 mg PO QPM 10/02/14 02/20/19 Unknown History Hydralazine HCl [Apresoline TAB] 25 mg PO TID 10/02/14 02/20/19 Unknown History Omeprazole [PriLOSEC] 20 mg PO QDAY 10/02/14 02/20/19 Unknown History Oxybutynin Chloride [Ditropan Xl] 10 mg PO QDAY 10/02/14 02/20/19 Unknown History Simvastatin 20 mg PO QDAY 10/02/14 02/20/19 Unknown History Vit B Comp No.3/Folic/C/Biotin 1 each PO QDAY 10/02/14 02/20/19 Unknown History [[facility] Rx Tablet] metOLazone [Zaroxolyn] 2.5 mg PO BID 10/02/14 02/20/19 Unknown History levETIRAcetam [Keppra TAB] 500 mg PO BID #60 tablet 02/20/19 Unknown Rx Active Meds: Active Medications Acetaminophen (Acetaminophen 650 Mg Rect Supp) 650 mg [place] Q6H PRN PRN Reason: Pain MILD(1-3)/Fever >100.5/MARTINEZ Acetaminophen (Acetaminophen 325 Mg Tab) 650 mg PO Q6H PRN PRN Reason: Pain, Mild (1-3) Albuterol (Albuterol 2.5 Mg/3 Ml Nebu) 2.5 mg IH Q3HRT PRN PRN Reason: Shortness Of Breath Lipase/Protease/Amylase (Lipase 10,500/Protease 25,000/Amylase 43,750 (Units) Dr Cap) 1 each FEEDTUBE PRN PRN PRN Reason: For Clogged Feeding Tube Aspirin (Aspirin 81 Mg Tab Chew) 81 mg PO QDAY [facility] Dextrose (Dextrose 10% *Hypoglycemia) 0 ml IV PRN PRN PRN Reason: Hypoglycemia Fentanyl (Fentanyl 100 Mcg/2 Ml Inj) 50 mcg IV Q10MIN PRN PRN Reason: ANALGESIA Furosemide (Furosemide 20 Mg Tab) 20 mg PO QDAY [facility] Gabapentin (Gabapentin 300 Mg Cap) 300 mg PO QPM [facility] Last Admin: 10/23/21 18:09 Dose: Not Given Heparin Sodium (Porcine) (Heparin 5,000 Unit/1 Ml Vial) 5,000 unit SUB-Q Q12HR [facility] Last Admin: 10/24/21 10:36 Dose: 5,000 unit Hydralazine HCl (Hydralazine 25 Mg Tab) 25 mg PO Q8HR [facility] Last Admin: 10/24/21 06:08 Dose: Not Given Hydromorphone HCl (Hydromorphone 1 Mg/1 Ml Inj) 0.5 mg IV Q23H PRN PRN Reason: Pain , Severe (7-10) Amiodarone HCl 900 mg/ (Dextrose) 500 mls @ 33.333 mls/hr IV DIRECT [facility]; Protocol Last Titration: 10/24/21 04:30 Dose: 0 mg/min, 0 mls/hr Levofloxacin/Dextrose (Levaquin 750mg/150ml) 750 mg in 150 mls @ 100 mls/hr IV Q48H [facility]; Protocol Last Admin: 10/23/21 20:57 Dose: 100 mls/hr Metronidazole (Flagyl 500 Mg/100 Ml) 500 mg in 100 mls @ 100 mls/hr IV Q8H [facility]; Protocol Last Admin: 10/24/21 08:33 Dose: 100 mls/hr Fentanyl Citrate (Fentanyl Drip Premix) 2,000 mcg in 100 mls @ 2 mls/hr IV TITR [facility]; Protocol Magnesium Sulfate (Magnesium Sulfate 4gm/100ml) 4 gm in 100 mls @ 25 mls/hr IV ONCE@1100 [facility] Stop: 10/24/21 14:00 Last Admin: 10/24/21 10:36 Dose: 25 mls/hr Insulin Human Regular (Insulin Regular, Human 100 Units/1 Ml) 0 units SUB-Q Q6H [facility]; Protocol Last Admin: 10/24/21 06:44 Dose: Not Given Lansoprazole (Lansoprazole 30 Mg Solutab) 30 mg FEEDTUBE QDAY [facility] Levetiracetam (Levetiracetam 500 Mg/5 Ml Oral Liqd) 500 mg PO BID [facility] Metolazone (Metolazone 2.5 Mg Tab) 2.5 mg PO BID [facility] Last Admin: 10/23/21 23:30 Dose: 2.5 mg Multivit/Ca Carb/B Cmplx/FA/Prenat (Folic Acid/Vit B Comp W-C 1 Mg (Renal Caps)) 1 cap PO QDAY [facility] Oxybutynin Chloride (Oxybutynin 5 Mg Tab) 5 mg PO BID [facility] Last Admin: 10/23/21 23:29 Dose: 5 mg Oxycodone/Acetaminophen (Oxycodone /Acetaminophen 5-325mg Tab) 1 tab PO Q16H PRN PRN Reason: Pain, Moderate (4-6) Pravastatin Sodium (Pravastatin 40 Mg Tab) 40 mg PO QHS [facility] Last Admin: 10/23/21 23:30 Dose: 40 mg Simple Syrup (Simple Syrup 15 Ml) 15 ml FEEDTUBE PRN PRN PRN Reason: Hypoglycemia Simple Syrup (Simple Syrup 15 Ml) 30 ml FEEDTUBE PRN PRN PRN Reason: Hypoglycemia Sodium Bicarbonate (Sodium Bicarbonate 325 Mg Tab) 325 mg FEEDTUBE PRN PRN PRN Reason: For Clogged Feeding Tube Sodium Chloride (Sodium Chloride 0.9% 10 Ml Flush Syringe) 10 ml IV BID [facility] Last Admin: 10/23/21 23:30 Dose: 10 ml Sodium Chloride (Sodium Chloride 0.9% 10 Ml Flush Syringe) 10 ml IV PRN PRN PRN Reason: LINE FLUSH Sodium Chloride (Sodium Chloride 0.9% 50 Ml Ivpb) 10 ml IV PRN PRN PRN Reason: Line flush Tramadol HCl (Tramadol 50 Mg Tab) 50 mg PO Q6H PRN PRN Reason: Pain, Moderate (4-6) Review of Systems ROS unobtainable: due to endotracheal tube, due to mental status Physical Examination Vital Signs Pulse Resp BP Pulse Ox 81 30 H 122/78 98 10/23/21 12:19 10/23/21 12:19 10/23/21 12:19 10/23/21 12:19 General appearance: other (Elderly, 89-year-old woman unresponsive, on the vent) HEENT: Positive: Other (Pupils fixed) Neck: Positive: neck supple Cardiac: Positive: Reg Rate and Rhythm Lungs: Positive: Decreased Breath Sounds Neuro: Positive: Other (Unresponsive, on the vent) Abdomen: Positive: Soft Female genitourinary: deferred Skin: Positive: Clear Extremities: Absent: edema Results 10/24/21 05:30 10/24/21 05:30 Cardiac Enzymes 10/23/21 Range/Units Unknown AST 100 H (5-40) units/L Coagulation 10/23/21 Range/Units Unknown PT 14.3 (12.2-14.9) Sec. INR 1.00 (0.87-1.13) APTT 22.0 L (24.2-36.6) Sec. Lipids 10/23/21 Range/Units Unknown Triglycerides 90 (2-149) mg/dL Cholesterol 202 H (50-199) mg/dL HDL Cholesterol 36 L (40-59) mg/dL Cholesterol/HDL Ratio 5.61 % CBC 10/23/21 10/24/21 Range/Units 14:27 05:30 WBC 10.4 7.3 (4.5-11.0) K/mm3 RBC 5.20 H 5.27 H (3.65-5.03) M/mm3 Hgb 11.6 11.8 (10.1-14.3) gm/dl Hct 37.9 38.0 (30.3-42.9) % Plt Count 217 172 (140-440) K/mm3 Lymph # (Auto) 1.1 L 1.0 L (1.2-5.4) K/mm3 [place] # (Auto) 0.5 0.5 (0.0-0.8) K/mm3 Eos # (Auto) 0.0 0.0 (0.0-0.4) K/mm3 Baso # (Auto) 0.0 0.0 (0.0-0.1) K/mm3 Comprehensive Metabolic Panel 10/23/21 10/24/21 Range/Units Unknown 05:30 Sodium 144 138 (137-145) mmol/L Potassium 2.8 L* 3.9 D (3.6-5.0) mmol/L Chloride 110.1 H 105.6 (98-107) mmol/L Carbon Dioxide 18 L 22 (22-30) mmol/L BUN 24 H 24 H (7-17) mg/dL Creatinine 0.7 0.6 (0.6-1.2) mg/dL Glucose 202 H 98 (65-100) mg/dL Calcium 8.4 8.6 (8.4-10.2) mg/dL AST 100 H (5-40) units/L ALT 65 H (7-56) units/L Alkaline Phosphatase 75 (35-129) units/L Total Protein 5.9 L (6.3-8.2) g/dL Albumin 2.8 L (3.9-5) g/dL EKG interpretations - Telemetry EKG Rhythm: Sinus Rhythm (With first-degree AV block, left axis deviation, left ventricle hypertrophy) Assessment and Plan - Patient Problems (1) Cardiopulmonary arrest Current Visit: Yes Status: Acute Plan to address problem: Frail elderly 89-year-old who is admitted following an out of hospital cardiopulmonary arrest. We will order an echocardiogram for left ventricular function assessment, otherwise recommend supportive management, further cardiac management will depend on clinical course.
--- NOTE | 2021-10-24 14:09 | Consultation ---
History of Present Illness Consult date: 10/24/21 Requesting physician: ECTOR DE Reason for consult: other (AMS; AHRF) History of present illness: PULMONARY/CCM CONSULT NOTE (Full dictation # [id number]) Please see dictated notes for full details Past History Past Medical History: other (Past cardiac history unknown) Past Surgical History: hysterectomy, total knee replacement Social history: . denies: smoking, alcohol abuse Family history: hypertension Medications and Allergies Allergies Allergy/AdvReac Type Severity Reaction Status Date / Time No Known Allergies Allergy Verified 10/02/14 20:10 Home Medications Medication Instructions Recorded Confirmed Last Taken Type Aspirin [Aspirin BABY CHEW TAB] 81 mg PO QDAY 10/02/14 02/20/19 Unknown History Furosemide [Lasix TAB] 20 mg PO QDAY 10/02/14 02/20/19 Unknown History Gabapentin 300 mg PO QPM 10/02/14 02/20/19 Unknown History Hydralazine HCl [Apresoline TAB] 25 mg PO TID 10/02/14 02/20/19 Unknown History Omeprazole [PriLOSEC] 20 mg PO QDAY 10/02/14 02/20/19 Unknown History Oxybutynin Chloride [Ditropan Xl] 10 mg PO QDAY 10/02/14 02/20/19 Unknown History Simvastatin 20 mg PO QDAY 10/02/14 02/20/19 Unknown History Vit B Comp No.3/Folic/C/Biotin 1 each PO QDAY 10/02/14 02/20/19 Unknown History [[facility] Rx Tablet] metOLazone [Zaroxolyn] 2.5 mg PO BID 10/02/14 02/20/19 Unknown History levETIRAcetam [Keppra TAB] 500 mg PO BID #60 tablet 02/20/19 Unknown Rx Active Meds: Active Medications Acetaminophen (Acetaminophen 650 Mg Rect Supp) 650 mg [place] Q6H PRN PRN Reason: Pain MILD(1-3)/Fever >100.5/MARTINEZ Acetaminophen (Acetaminophen 325 Mg Tab) 650 mg PO Q6H PRN PRN Reason: Pain, Mild (1-3) Albuterol (Albuterol 2.5 Mg/3 Ml Nebu) 2.5 mg IH Q3HRT PRN PRN Reason: Shortness Of Breath Lipase/Protease/Amylase (Lipase 10,500/Protease 25,000/Amylase 43,750 (Units) Dr Cap) 1 each FEEDTUBE PRN PRN PRN Reason: For Clogged Feeding Tube Aspirin (Aspirin 81 Mg Tab Chew) 81 mg PO QDAY [facility] Dextrose (Dextrose 10% *Hypoglycemia) 0 ml IV PRN PRN PRN Reason: Hypoglycemia Fentanyl (Fentanyl 100 Mcg/2 Ml Inj) 50 mcg IV Q10MIN PRN PRN Reason: ANALGESIA Furosemide (Furosemide 20 Mg Tab) 20 mg PO QDAY [facility] Gabapentin (Gabapentin 300 Mg Cap) 300 mg PO QPM [facility] Last Admin: 10/23/21 18:09 Dose: Not Given Heparin Sodium (Porcine) (Heparin 5,000 Unit/1 Ml Vial) 5,000 unit SUB-Q Q12HR [facility] Last Admin: 10/24/21 10:36 Dose: 5,000 unit Hydralazine HCl (Hydralazine 25 Mg Tab) 25 mg PO Q8HR [facility] Last Admin: 10/24/21 06:08 Dose: Not Given Hydromorphone HCl (Hydromorphone 1 Mg/1 Ml Inj) 0.5 mg IV Q23H PRN PRN Reason: Pain , Severe (7-10) Amiodarone HCl 900 mg/ (Dextrose) 500 mls @ 33.333 mls/hr IV DIRECT [facility]; Protocol Last Titration: 10/24/21 04:30 Dose: 0 mg/min, 0 mls/hr Levofloxacin/Dextrose (Levaquin 750mg/150ml) 750 mg in 150 mls @ 100 mls/hr IV Q48H [facility]; Protocol Last Admin: 10/23/21 20:57 Dose: 100 mls/hr Metronidazole (Flagyl 500 Mg/100 Ml) 500 mg in 100 mls @ 100 mls/hr IV Q8H [facility]; Protocol Last Admin: 10/24/21 08:33 Dose: 100 mls/hr Fentanyl Citrate (Fentanyl Drip Premix) 2,000 mcg in 100 mls @ 2 mls/hr IV TITR [facility]; Protocol Insulin Human Regular (Insulin Regular, Human 100 Units/1 Ml) 0 units SUB-Q Q6H [facility]; Protocol Last Admin: 10/24/21 06:44 Dose: Not Given Lansoprazole (Lansoprazole 30 Mg Solutab) 30 mg FEEDTUBE QDAY [facility] Levetiracetam (Levetiracetam 500 Mg/5 Ml Oral Liqd) 500 mg PO BID [facility] Metolazone (Metolazone 2.5 Mg Tab) 2.5 mg PO BID [facility] Last Admin: 10/23/21 23:30 Dose: 2.5 mg Multivit/Ca Carb/B Cmplx/FA/Prenat (Folic Acid/Vit B Comp W-C 1 Mg (Renal Caps)) 1 cap PO QDAY [facility] Oxybutynin Chloride (Oxybutynin 5 Mg Tab) 5 mg PO BID [facility] Last Admin: 10/23/21 23:29 Dose: 5 mg Oxycodone/Acetaminophen (Oxycodone /Acetaminophen 5-325mg Tab) 1 tab PO Q16H PRN PRN Reason: Pain, Moderate (4-6) Pravastatin Sodium (Pravastatin 40 Mg Tab) 40 mg PO QHS [facility] Last Admin: 10/23/21 23:30 Dose: 40 mg Simple Syrup (Simple Syrup 15 Ml) 15 ml FEEDTUBE PRN PRN PRN Reason: Hypoglycemia Simple Syrup (Simple Syrup 15 Ml) 30 ml FEEDTUBE PRN PRN PRN Reason: Hypoglycemia Sodium Bicarbonate (Sodium Bicarbonate 325 Mg Tab) 325 mg FEEDTUBE PRN PRN PRN Reason: For Clogged Feeding Tube Sodium Chloride (Sodium Chloride 0.9% 10 Ml Flush Syringe) 10 ml IV BID [facility] Last Admin: 10/23/21 23:30 Dose: 10 ml Sodium Chloride (Sodium Chloride 0.9% 10 Ml Flush Syringe) 10 ml IV PRN PRN PRN Reason: LINE FLUSH Sodium Chloride (Sodium Chloride 0.9% 50 Ml Ivpb) 10 ml IV PRN PRN PRN Reason: Line flush Tramadol HCl (Tramadol 50 Mg Tab) 50 mg PO Q6H PRN PRN Reason: Pain, Moderate (4-6) Physical Examination Vital signs: Vital Signs Pulse Resp BP Pulse Ox 81 30 H 122/78 98 10/23/21 12:19 10/23/21 12:19 10/23/21 12:19 10/23/21 12:19 Results - Laboratory Findings CBC and BMP: 10/24/21 05:30 10/24/21 05:30 ABG ABG pH 7.500 pH Units (7.350-7.450) H 10/24/21 09:35 ABG pCO2 27.2 mm Hg 10/24/21 09:35 ABG pO2 126.0 mm Hg (80.0-90.0) H 10/24/21 09:35 ABG O2 Saturation 98.7 % (95.0-99.0) 10/24/21 09:35 PT/INR, D-dimer PT 14.3 Sec. (12.2-14.9) 10/23/21 Unknown INR 1.00 (0.87-1.13) 10/23/21 Unknown Abnormal lab findings: Abnormal Labs 10/23/21 10/23/21 10/23/21 13:35 14:27 17:00 RBC 5.20 H MCV 73 L MCH 22 L Lymph % (Auto) 10.7 L Lymph # (Auto) 1.1 L Seg Neutrophils % 84.6 H Seg Neutrophils # 8.8 H APTT ABG pH 7.339 L ABG pO2 288.6 H ABG O2 Saturation 99.5 H ABG Base Excess -4.9 L ABG Hemoglobin 11.7 L Potassium Chloride Carbon Dioxide BUN Glucose POC Glucose 145 H Magnesium AST ALT Troponin T Total Protein Albumin Cholesterol LDL Cholesterol Direct HDL Cholesterol Free T4 Urine WBC (Auto) Coronavirus (PCR) 10/23/21 10/23/21 10/23/21 22:38 23:50 Unknown RBC MCV MCH Lymph % (Auto) Lymph # (Auto) Seg Neutrophils % Seg Neutrophils # APTT ABG pH ABG pO2 ABG O2 Saturation ABG Base Excess ABG Hemoglobin Potassium Chloride Carbon Dioxide BUN Glucose POC Glucose 176 H Magnesium AST ALT Troponin T 0.321 H* D Total Protein Albumin Cholesterol LDL Cholesterol Direct HDL Cholesterol Free T4 Urine WBC (Auto) 45.0 H Coronavirus (PCR) 10/23/21 10/23/21 10/23/21 Unknown Unknown Unknown RBC MCV MCH Lymph % (Auto) Lymph # (Auto) Seg Neutrophils % Seg Neutrophils # APTT 22.0 L ABG pH ABG pO2 ABG O2 Saturation ABG Base Excess ABG Hemoglobin Potassium 2.8 L* Chloride 110.1 H Carbon Dioxide 18 L BUN 24 H Glucose 202 H POC Glucose Magnesium 1.60 L AST 100 H ALT 65 H Troponin T 0.082 H Total Protein 5.9 L Albumin 2.8 L Cholesterol 202 H LDL Cholesterol Direct 139 H HDL Cholesterol 36 L Free T4 1.81 H Urine WBC (Auto) Coronavirus (PCR) 10/24/21 10/24/21 10/24/21 05:30 05:30 05:30 RBC 5.27 H MCV 72 L MCH 22 L Lymph % (Auto) Lymph # (Auto) 1.0 L Seg Neutrophils % 79.8 H Seg Neutrophils # APTT ABG pH ABG pO2 ABG O2 Saturation ABG Base Excess ABG Hemoglobin Potassium Chloride Carbon Dioxide BUN 24 H Glucose POC Glucose Magnesium AST ALT Troponin T 0.365 H* Total Protein Albumin Cholesterol LDL Cholesterol Direct HDL Cholesterol Free T4 Urine WBC (Auto) Coronavirus (PCR) 10/24/21 10/24/21 08:20 09:35 RBC MCV MCH Lymph % (Auto) Lymph # (Auto) Seg Neutrophils % Seg Neutrophils # APTT ABG pH 7.500 H ABG pO2 126.0 H ABG O2 Saturation ABG Base Excess ABG Hemoglobin Potassium Chloride Carbon Dioxide BUN Glucose POC Glucose Magnesium AST ALT Troponin T Total Protein Albumin Cholesterol LDL Cholesterol Direct HDL Cholesterol Free T4 Urine WBC (Auto) Coronavirus (PCR) Positive A
--- NOTE | 2021-10-24 15:43 | XRay Report ---
ABDOMEN 1 VIEW(S) INDICATION / CLINICAL INFORMATION: NGT placement. COMPARISON: None available. FINDINGS: TUBES / LINES: Feeding tube tip is in the mid stomach. BOWEL GAS PATTERN: No significant abnormality. FREE AIR / EXTRALUMINAL GAS: None seen. ADDITIONAL FINDINGS: No significant additional findings. IMPRESSION: 1. Feeding tube tip is in the mid stomach. Signer Name: Mitul Suresh MD Signed: 10/24/2021 3:39 PM Workstation Name: [id number]
[2021-10-24 15:45] LABS: ABG Base Excess -1.8 mmol/L (-2.0-3.0); ABG HCO3 21.5 mmol/L (20.0-26.0); ABG Methemoglobin 0.5 % (0.0-1.5); ABG Oxygen Saturation 98.5 % (95.0-99.0); ABG PH 7.445 pH Units (7.350-7.450); ABG PO2 122.4 mm Hg (80.0-90.0)
[2021-10-24] MEDS: GABAPENTIN 300 MG CAP PO SCH (17:08)
[2021-10-24] MEDS: FOLIC ACID/VIT B COMP W-C 1 MG (RENAL CAPS) PO SCH (17:08)
[2021-10-24] MEDS: FUROSEMIDE 20 MG TAB PO SCH (17:09)
[2021-10-24] MEDS: ASPIRIN 81 MG TAB CHEW PO SCH (17:09)
[2021-10-24] MEDS: PRAVASTATIN 40 MG TAB PO SCH (21:26)
[2021-10-24] MEDS: levETIRAcetam 500 MG/5 ML ORAL LIQD PO SCH (21:26)
--- NOTE | 2021-10-25 | Consultation ---
DATE OF CONSULTATION: 10/24/2021 PULMONARY CRITICAL CARE CONSULT NOTE CONSULTING PHYSICIAN: Dr. Krueger. REASON FOR CONSULTATION: Acute hypoxemic respiratory failure, on mechanical ventilator support. CHIEF COMPLAINT AND HISTORY OF PRESENT ILLNESS: The patient is an 89-year-old female with a past medical history significant amongst other things for a diagnosis of malnutrition, seizure disorder and hypertension, who was brought into the Emergency Room unresponsive. According to the family, the patient was at home, they were changing her diaper when she went unresponsive. They did not notice any seizure activity. EMS found her in the bed, unresponsive with agonal respirations. She was intubated and brought into the Emergency Room. Evaluation in the Emergency Room showed pneumonia suspected secondary to aspiration. She had a UTI and systemic inflammatory response syndrome. She was brought up to the intensive care unit after discussions and we are asked to assist with management. When I stopped by to see her, she was resting in bed, on the mechanical ventilator. She was on a spontaneous breathing trial via a pressure support ventilation with a pressure support of 10 and PEEP of 6 and she was tolerating well. This really is as much of the history of presentation as I have. I do not have any history of any traumatic falls or injury. PAST MEDICAL HISTORY: Again, significant for hypertension, protein calorie malnutrition, diabetes, seizure disorder, osteoarthritis, congestive heart failure, and meningioma. PAST SURGICAL HISTORY: She has had a hysterectomy and a total knee replacement. MEDICATIONS: She was on at the time I stopped by to see according to the medication administration record included the following: Tylenol 650 mg per rectum q. 6 hours p.r.n. mild pain or fevers and 650 mg p.o. q. 6 hours p.r.n. mild pain or fevers; albuterol 2.5 mg nebulized q. 3 hours p.r.n. shortness of breath; amiodarone drip had been going earlier at 1 mg per minute, but stopped secondary to bradycardia; aspirin 81 mg p.o. daily, fentanyl had been ordered at 1 mcg per kilogram per hour, not running currently; Lasix 20 mg p.o. daily; Neurontin 300 mg p.o. at bedtime; heparin 5000 units subcutaneous q. 12 hours; hydralazine 25 mg p.o. q. 8 hours scheduled; Dilaudid 0.5 mg IV q. 23 hours p.r.n. severe pain; insulin via sliding scale; Prevacid 30 mg p.o. daily; Keppra 500 mg p.o. b.i.d.; Levaquin 750 mg IV q. 48 hours; metolazone 2.5 mg p.o. b.i.d.; Flagyl 500 mg IV q. 8 hours daily; multivitamin, Rabun caps; oxybutynin chloride 5 mg p.o. b.i.d.; Percocet 5/325 mg 1 tablet p.o. q. 16 hours p.r.n. moderate pain; Pravachol 40 mg p.o. at bedtime, all p.o. meds via the feeding tube. ALLERGIES: No known drug allergies. DIET: Thin lady, acute weight loss or gain history is unknown. FAMILY AND SOCIAL HISTORY: Apparently lives in the community with her family. No current alcohol, tobacco or illicit drug use or abuse. Remote history is unknown. There is a family history of hypertension. REVIEW OF SYSTEMS: Unobtainable secondary to the patient's medical and mental condition since she has been here. No gross hematochezia or melena, no gross hematuria, no hematemesis, no bloody tracheal secretions, no witnessed seizures. Review of systems otherwise unobtainable or as in the body of history above. PHYSICAL EXAMINATION: VITAL SIGNS: At presentation in the Emergency Room, vital signs, she was hypothermic, temperature 95.7 degrees Fahrenheit with a pulse of 81, respiratory rate of 30, blood pressure 122/78, O2 sats were 98%, inspired oxygen concentration at that time was not recorded. GENERAL: She is an elderly looking lady, normocephalic, atraumatic, on the mechanical ventilator with mildly increased respiratory effort at rest. HEAD, EYES, EARS, NOSE AND THROAT: Anicteric. No conjunctival erythema. Oropharynx was moist. Endotracheal tube was taped at the lips around 23-24 cm. NECK: Supple. No gross jugular venous distention, no thyromegaly. She has a right IJ triple lumen central venous catheter without bleeding at the stoma. Grossly, there were no palpable lymph nodes in the supraclavicular or submandibular lymph node chains. LUNGS: Auscultation of both lung adame significant for diminished bilateral breath sounds, faint bibasilar rhonchi, no wheezing. HEART: Sounds 1 and 2 are heard. There were regular rate and rhythm at the time of my evaluation without overt rubs or murmurs. ABDOMEN: Soft, full, protuberant. Bowel sounds are positive, nontender, no palpable hepatosplenomegaly. EXTREMITIES: Without overt digital clubbing or cyanosis, no pedal edema. Pedal pulses are 2+ bilaterally. NEUROLOGIC: Pupils were equal, round, about 4 mm, reactive to light. Extraocular muscle movements could not be adequately assessed. She had some spontaneous movements to all extremities and attempted to respond by opening her eyes, moving her head to name calling. SKIN: Poor turgor; however, without overt cellulitis or rash in the areas I examined. Please see the wound care nurses' notes for full description of the skin. PSYCHIATRIC: Mood and affect could not be assessed. LABORATORY DATA: From my review are as follows: Admission white cell count 10,400, hemoglobin 11.6, hematocrit 37.9, platelet count 217. No manual differential. INR within normal limits. Arterial blood gas showed a pH of 7.34, pCO2 of 49, pCO2 of 39, pO2 of 289, that was on 70% FiO2. Serum sodium was 144, potassium was 2.8 at presentation. Chloride 110, bicarbonate 18, BUN 24, creatinine 0.7, glucose 202. Magnesium was low at 1.6, AST is up at 100, ALT 65. Troponin elevated at 0.082. Albumin low at 2.8. LDL cholesterol 139. TSH within normal limits. Urinalysis showed large leukocyte esterase, 45 white cells per high power field. Coronavirus PCR test is positive. Two sets of urine cultures, no growth after 24 hours. Tracheal aspirate is pending. Radiographic studies have been reviewed. Chest x-ray at presentation, film is rotated to the right, mediastinum looks wide. ET tube is in good position, probably could be pulled back 1-2 centimeters. There is gross cardiomegaly with hilar enlargement of the pulmonary artery trunk, mild perihilar infiltrate. The repeat chest x-ray from today, really no clear pneumonia if you ask my opinion and a stable chest compared to an x-ray from the 10/02/2014. A 2D echocardiogram was done, result is pending. KUB shows feeding tube in good position and some stool in the vault. ASSESSMENT: 1. Acute hypoxemic respiratory failure, on mechanical ventilatory support. 2. Possible aspiration pneumonia. 3. Non-ST elevation myocardial infarction. 4. Metabolic acidosis, mild at presentation. 5. Hypokalemia at presentation. 6. History of diabetes. 7. Urinary tract infection. 8. History of seizures. 9. History of congestive heart failure. 10. History of meningioma. 11. History of diabetes. 12. Osteoarthritis. 13. Oropharyngeal dysphagia. 14. Adult failure to thrive. 15. Elevated serum transaminases. PLAN: We will continue empiric antibiotic therapy. It is unclear that she really has a true infectious process going on here. We will get a CRP level as well as a procalcitonin level to help guide clinical decision making. I will discontinue the Flagyl. Continue Levaquin for now in light of possible UTI as well as possible aspiration pneumonia. Oxygen will be weaned to keep sats greater than or equal to about 90%. Ventilator-associated pneumonia bundle has been introduced. She is on a weaning trial right now. I will be talking to the family, but it seems like this is her baseline. The records mention a diaper was being changed at home. If this is the baseline, and even if not, with a negative CT of the head, I will be going ahead to give her a trial of extubation. Aspiration precautions will be maintained. Glycemic control will be for a target blood glucose of 140-180 mg/dL while critically ill. Her electrolytes have been corrected and are looking much better now. Cardiology evaluation will be appropriate. We will continue gentle diuresis. She has received magnesium supplementation and dysrhythmias have improved. She is appropriately on DVT prophylaxis and GI prophylaxis. Flu and pneumonia vaccination will be addressed per protocol. Thank you very much for the consult. We will follow along and make further recommendations as picture progresses/becomes clearer. She is critically ill on life-sustaining interventions including mechanical ventilatory support at very high risk of from cardiopulmonary system decompensation. At this time, I spent about 35-40 minutes of critical care time without overlap and excluding any procedural time that may be necessary. TID: [id number] RECEIPT: [id number] ADILSON/ANGELA
[2021-10-25] MEDS: INSULIN REGULAR, HUMAN 100 UNITS/1 ML SUB-Q SCH ×5 (00:13→23:05)
[2021-10-25 05:21] LABS: Mean Corpuscular HGB Conc 30 % (30-34); Mean Corpuscular Volume 71 fl (79-97); Platelet Count 268 K/mm3 (140-440); Red Blood Count 5.58 M/mm3 (3.65-5.03); Red Cell Distribution Width 14.7 % (13.2-15.2)
[2021-10-25 05:23] LABS: Hematocrit 39.7 % (30.3-42.9); Hemoglobin 12.1 gm/dl (10.1-14.3)
[2021-10-25 05:37] LABS: BUN/Creatinine Ratio 26; Blood Urea Nitrogen 21 mg/dL (7-17); Calcium 9.1 mg/dL (8.4-10.2); Hemolysis Index 10
[2021-10-25] MEDS ORDERED: POTASSIUM CHLORIDE ER 20 MEQ TAB PO ONE (06:15)
[2021-10-25] MEDS ORDERED: POTASSIUM CHLORIDE 20 MEQ PACKET FEEDTUBE ONE (08:57)
--- NOTE | 2021-10-25 09:20 | XRay Report ---
XR abdomen 1V ap INDICATION: New NGT placement. COMPARISON: 10/24/2021 FINDINGS: The tip of the esophagogastric tube projects over the body of the stomach. Signer Name: Murray Moralez MD Signed: 10/25/2021 9:15 AM Workstation Name: [id number]
[2021-10-25] MEDS: levETIRAcetam 500 MG/5 ML ORAL LIQD PO SCH ×2 (09:58→21:29)
[2021-10-25] MEDS: LANSOPRAZOLE 30 MG SOLUTAB FEEDTUBE SCH (09:59)
[2021-10-25] MEDS: FUROSEMIDE 20 MG TAB PO SCH (09:59)
[2021-10-25] MEDS: OXYBUTYNIN 5 MG TAB PO SCH ×2 (09:59→21:29)
[2021-10-25] MEDS: metOLazone 2.5 MG TAB PO SCH ×2 (09:59→21:32)
[2021-10-25] MEDS: hydrALAZINE 25 MG TAB PO SCH ×3 (09:59→21:29)
[2021-10-25] MEDS: ASPIRIN 81 MG TAB CHEW PO SCH (10:01)
[2021-10-25] MEDS: HEPARIN 5,000 UNIT/1 ML VIAL SUB-Q SCH ×2 (10:02→21:30)
[2021-10-25] MEDS: FOLIC ACID/VIT B COMP W-C 1 MG (RENAL CAPS) PO SCH (10:47)
--- NOTE | 2021-10-25 11:20 | Progress Note ---
<JING BRAGG - Last Filed: 10/25/21 18:36> Assessment and Plan Assessment and plan: This is a 89-year-old female with past medical history of CHF, HTN, DM, Seizure disorder, meningioma, OA, and malnutrition admitted for acute hypoxemic respiratory failure secondary to aspiration pneumonia requiring ventilatory support. Hospital Course to Date: 10/24: Intubated and sedated, RASS-5 on versed gtt, on low vent setting. Will do a sedation vacation to assess patient's mental status. Patient was on amio gtt for VTACH/Afib, now on hold due to bradycardia. Patient is SR on the monitor this am, HR 60-70s, not on any pressors. Pending cardiology consult. Patient is afebrile, wbcs normal, with no report of any diarrhea/loose stools, will hold flagyl for now. Continue IV Levaquin for now, COVID PCR result is pending. 10/25: S/p extubation currently stable on RA. Patient is nonverval but awake, per family this is her baseline. Speech swallo eval ordered, continue TF for now. IV decadron and IV remdesiver initiated per CCM. Patient is stable for transfer to the floor. Assessment and Plan #Acute hypoxemic respiratory failure #Aspiration Pneumonia #COVID positive - Found with agonal breathing, unable to protect airway at home - 2/2 Intubate in the field by EMS - 2/3 s/p extubation, now stable on RA - CCM consulted, appreciate recommendations - On IV steroids and IV Remdesevir per CCM - Aspiration precaution HOB above 30 - Continue SPO2 monitoring for SPO2 goal above 92% #NSTEMI (non-ST elevated myocardial infarction) #Atrial Fibrilation #CHF (congestive heart failure) #?? VTACH - Troponin leak on admit- EKG with no ST changes - Report of possible VTACH/AFIb on admit - Was on Amio gtt in the ED, now on Hold due to bradycardia - Patient is SR on the monitor this am, BP stable - 2/2 ECHO- EF 55% - Home meds resumed - monitor urine output every shift - daily weight - Monitor and replace electrolytes as needed - Continue blood pressure monitor per protocol - Cardiology consulted #UTI (urinary tract infection) - UA with pyuria, urine culture pending - Lactic and procal is normal - On IV Abx - Continue to F/u on culture date #Seizure disorder #Meningioma - Patient has a history - CT head reviewed - Continue Keppra therapy - seizure precautions - supportive care #Type 2 Diabetes - SSI Q6hrs - Avoid hypoglycemia #GI/DVT prophylaxis - Continue PPI- Prevacid - Continue AC- Heparin SubQ - SCDs bilateral lower extremities while in bed The high probability of a clinically significant, sudden or life threatening deterioration of the [multiple] system(s) required my full and direct attention, intervention and personal management. The aggregate critical care time was [60] minutes. This time is in addition to time spent performing reported procedures but includes the following: [x] Data Review and interpretation [x] Patient assessment and monitoring of vital signs [x] Documentation [x] Medication orders and management Disposition Plan: ICU Total Time Spent with Patient (Minutes): 60 History Interval history: Patient seen and examined at the bedside. s/p extubation now on RA. Patient is awake, tracking and follows some commands, however nonverbal. Per child and family therapist stated that patient was also nonverbal at home, this is a baseline. ANN overnight Hospitalist Physical - Constitutional Vitals: Temp Pulse Resp BP Pulse Ox 97.8 F 72 20 128/65 97 10/25/21 08:00 10/25/21 10:31 10/25/21 10:31 10/25/21 10:31 10/25/21 10:31 General appearance: Present: no acute distress, other (Intubated and sedated) - EENT Eyes: Present: PERRL ENT: hearing intact - Neck Neck: Present: normal ROM - Respiratory Respiratory effort: normal Respiratory: bilateral: diminished - Cardiovascular Rhythm: regular Heart Sounds: Present: S1 & S2 - Extremities Extremities: no ischemia, pulses intact, pulses symmetrical Extremity abnormal: edema - Peripheral Assessment Generalized Edema Type: Non-pitting Edema Degree: 1+ Capillary Refill: < 3 seconds Skin Temperature: Warm Peripheral Pulses: within normal limits - Abdominal General gastrointestinal: soft, non-distended, normal bowel sounds - Integumentary Integumentary: Present: warm, dry - Psychiatric Psychiatric: appropriate mood/affect, other (Confused, nonverbal) - Neurologic Neurologic: moves all extremities, other (Confused, nonverbal) - Allied Health Allied health notes reviewed: nursing HEART Score - HEART Score Troponin: Troponin T 0.365 ng/mL (0.00-0.029) H* 10/24/21 05:30 Results - Labs CBC & Chem 7: 10/25/21 04:29 10/25/21 16:22 Labs: Laboratory Last Values WBC 7.9 K/mm3 (4.5-11.0) 10/25/21 04:29 RBC 5.58 M/mm3 (3.65-5.03) H 10/25/21 04:29 Hgb 12.1 gm/dl (10.1-14.3) 10/25/21 04:29 Hct 39.7 % (30.3-42.9) 10/25/21 04:29 MCV 71 fl (79-97) L 10/25/21 04:29 MCH 22 pg (28-32) L 10/25/21 04:29 MCHC 30 % (30-34) 10/25/21 04:29 RDW 14.7 % (13.2-15.2) 10/25/21 04:29 Plt Count 268 K/mm3 (140-440) 10/25/21 04:29 Lymph % (Auto) 13.5 % (13.4-35.0) 10/24/21 05:30 Meade % (Auto) 6.4 % (0.0-7.3) 10/24/21 05:30 Eos % (Auto) 0.0 % (0.0-4.3) 10/24/21 05:30 Baso % (Auto) 0.3 % (0.0-1.8) 10/24/21 05:30 Lymph # (Auto) 1.0 K/mm3 (1.2-5.4) L 10/24/21 05:30 Meade # (Auto) 0.5 K/mm3 (0.0-0.8) 10/24/21 05:30 Eos # (Auto) 0.0 K/mm3 (0.0-0.4) 10/24/21 05:30 Baso # (Auto) 0.0 K/mm3 (0.0-0.1) 10/24/21 05:30 Seg Neutrophils % 79.8 % (40.0-70.0) H 10/24/21 05:30 Seg Neutrophils # 5.8 K/mm3 (1.8-7.7) 10/24/21 05:30 PT 14.3 Sec. (12.2-14.9) 10/23/21 Unknown INR 1.00 (0.87-1.13) 10/23/21 Unknown APTT 22.0 Sec. (24.2-36.6) L 10/23/21 Unknown ABG pH 7.445 pH Units (7.350-7.450) 10/24/21 Unknown ABG pCO2 32.0 mm Hg 10/24/21 Unknown ABG pO2 122.4 mm Hg (80.0-90.0) H 10/24/21 Unknown ABG HCO3 21.5 mmol/L (20.0-26.0) 10/24/21 Unknown ABG O2 Saturation 98.5 % (95.0-99.0) 10/24/21 Unknown ABG O2 Content 17.5 (0.0-44) 10/24/21 Unknown ABG Base Excess -1.8 mmol/L (-2.0-3.0) 10/24/21 Unknown ABG Hemoglobin 12.7 gm/dl (12.0-16.0) 10/24/21 Unknown ABG Carboxyhemoglobin 1.1 % (0.0-5.0) 10/24/21 Unknown ABG Methemoglobin 0.5 % (0.0-1.5) 10/24/21 Unknown VBG pH Cancelled 10/23/21 13:35 Oxyhemoglobin 96.9 % (95.0-99.0) 10/24/21 Unknown FiO2 30 % 10/24/21 Unknown Sodium 138 mmol/L (137-145) 10/25/21 04:29 Potassium 3.2 mmol/L (3.6-5.0) L 10/25/21 04:29 Chloride 101.0 mmol/L (98-107) 10/25/21 04:29 Carbon Dioxide 25 mmol/L (22-30) 10/25/21 04:29 Anion Gap 15 mmol/L 10/25/21 04:29 BUN 21 mg/dL (7-17) H 10/25/21 04:29 Creatinine 0.8 mg/dL (0.6-1.2) 10/25/21 04:29 Estimated GFR > 60 ml/min 10/25/21 04:29 BUN/Creatinine Ratio 26 % 10/25/21 04:29 Glucose 119 mg/dL (65-100) H 10/25/21 04:29 POC Glucose 105 mg/dL (70-105) 10/25/21 10:59 Lactic Acid 1.70 mmol/L (0.7-2.0) 10/23/21 Unknown Calcium 9.1 mg/dL (8.4-10.2) 10/25/21 04:29 Phosphorus 2.80 mg/dL (2.5-4.5) 10/25/21 04:29 Magnesium 2.30 mg/dL (1.7-2.3) 10/25/21 04:29 Total Bilirubin 0.50 mg/dL (0.1-1.2) 10/23/21 Unknown AST 100 units/L (5-40) H 10/23/21 Unknown ALT 65 units/L (7-56) H 10/23/21 Unknown Alkaline Phosphatase 75 units/L (35-129) 10/23/21 Unknown Ammonia 49.0 umol/L (25-60) 10/23/21 Unknown Troponin T 0.365 ng/mL (0.00-0.029) H* 10/24/21 05:30 C-Reactive Protein 7.10 mg/dL (0.00-1.30) H 10/24/21 16:11 Total Protein 5.9 g/dL (6.3-8.2) L 10/23/21 Unknown Albumin 2.8 g/dL (3.9-5) L 10/23/21 Unknown Albumin/Globulin Ratio 0.9 % 10/23/21 Unknown Triglycerides 90 mg/dL (2-149) 10/23/21 Unknown Cholesterol 202 mg/dL (50-199) H 10/23/21 Unknown LDL Cholesterol Direct 139 mg/dL (50-130) H 10/23/21 Unknown HDL Cholesterol 36 mg/dL (40-59) L 10/23/21 Unknown Cholesterol/HDL Ratio 5.61 % 10/23/21 Unknown TSH 0.771 mlU/mL (0.270-4.200) 10/23/21 Unknown Free T4 1.81 ng/dL (0.76-1.46) H 10/23/21 Unknown Urine Color Yellow (Yellow) 10/23/21 Unknown Urine Turbidity Slightly-cloudy (Clear) 10/23/21 Unknown Urine pH 6.0 (5.0-7.0) 10/23/21 Unknown Ur Specific Novi 1.023 (1.003-1.030) 10/23/21 Unknown Urine Protein 100 mg/dl mg/dL (Negative) 10/23/21 Unknown Urine Glucose (UA) Neg mg/dL (Negative) 10/23/21 Unknown Urine Ketones Tr mg/dL (Negative) 10/23/21 Unknown Urine Blood Mod (Negative) 10/23/21 Unknown Urine Nitrite Neg (Negative) 10/23/21 Unknown Urine Bilirubin Neg (Negative) 10/23/21 Unknown Urine Urobilinogen 4.0 mg/dL (<2.0) 10/23/21 Unknown Ur Leukocyte Esterase Lg (Negative) 10/23/21 Unknown Urine WBC (Auto) 45.0 /HPF (0.0-6.0) H 10/23/21 Unknown Urine RBC (Auto) 30.0 /HPF (0.0-6.0) 10/23/21 Unknown U Epithel Cells (Auto) < 1.0 /HPF (0-13.0) 10/23/21 Unknown Urine Bacteria (Auto) 1+ /HPF (Negative) 10/23/21 Unknown Urine Mucus Few /HPF 10/23/21 Unknown Urine Yeast (Budding) 1+ /HPF 10/23/21 Unknown Coronavirus (PCR) Positive (Negative) A 10/24/21 08:20 Microbiology: Microbiology 10/23/21 13:25 Tracheal Aspirate Sputum Culture - Preliminary 10/23/21 Unknown Urine,Clean Catch Urine Culture - Preliminary NO GROWTH AFTER 24 HOURS Gonzalez/IV: Voiding Method External Female Catheter Active Medications - Current Medications Current Medications: Generic Name Dose Route Start Last Admin Trade Name Freq PRN Reason Stop Dose Admin Acetaminophen 650 mg 10/23/21 16:00 Acetaminophen 650 Mg Rect Supp DE Q6H PRN Pain MILD(1-3)/Fever >100.5/MARTINEZ Acetaminophen 650 mg 10/23/21 17:30 Acetaminophen 325 Mg Tab PO Q6H PRN Pain, Mild (1-3) Albuterol 2.5 mg 10/23/21 17:00 Albuterol 2.5 Mg/3 Ml Nebu IH Q3HRT PRN Shortness Of Breath Lipase/Protease/Amylase 1 each 10/24/21 10:30 Lipase 10,500/Protease 25,000/Amylase 43,750 (Units) Dr Stone FEEDTUBE PRN PRN For Clogged Feeding Tube Aspirin 81 mg 10/24/21 10:00 10/25/21 10:01 Aspirin 81 Mg Tab Chew PO 81 mg QDAY JANET Administration Dextrose 0 ml 10/23/21 17:00 Dextrose 10% *Hypoglycemia IV PRN PRN Hypoglycemia Furosemide 20 mg 10/24/21 10:00 10/25/21 09:59 Furosemide 20 Mg Tab PO 20 mg QDAY JANET Administration Gabapentin 300 mg 10/23/21 18:00 10/24/21 17:08 Gabapentin 300 Mg Cap PO 300 mg QPM JANET Administration Heparin Sodium (Porcine) 5,000 unit 10/23/21 22:00 10/25/21 10:02 Heparin 5,000 Unit/1 Ml Vial SUB-Q 5,000 unit Q12HR JANET Administration Hydralazine HCl 25 mg 10/23/21 22:00 10/25/21 09:59 Hydralazine 25 Mg Tab PO 25 mg Q8HR JANET Administration Hydromorphone HCl 0.5 mg 10/23/21 16:00 Hydromorphone 1 Mg/1 Ml Inj IV Q23H PRN Pain , Severe (7-10) Amiodarone HCl 900 mg/ 500 mls @ 33.333 mls/hr 10/23/21 14:00 10/24/21 04:30 Dextrose IV 0 mg/min DIRECT JANET 0 mls/hr Titration Protocol 1 MG/MIN Levofloxacin/Dextrose 750 mg in 150 mls @ 100 mls/hr 10/23/21 17:00 10/23/21 20:57 Levaquin 750mg/150ml IV 100 mls/hr Q48H JANET Administration Protocol Insulin Human Regular 0 units 10/23/21 16:00 10/25/21 00:13 Insulin Regular, Human 100 Units/1 Ml SUB-Q Not Given Q6H JANET Protocol Lansoprazole 30 mg 10/25/21 10:00 10/25/21 09:59 Lansoprazole 30 Mg Solutab FEEDTUBE 30 mg QDAY JANET Administration Levetiracetam 500 mg 10/24/21 22:00 10/25/21 09:58 Levetiracetam 500 Mg/5 Ml Oral Liqd PO 500 mg BID JANET Administration Metolazone 2.5 mg 10/23/21 22:00 10/25/21 09:59 Metolazone 2.5 Mg Tab PO 2.5 mg BID JANET Administration Multivit/Ca Carb/B Cmplx/FA/Prenat 1 cap 10/24/21 10:00 10/24/21 17:08 Folic Acid/Vit B Comp W-C 1 Mg (Renal Caps) PO 1 cap QDAY JANET Administration Oxybutynin Chloride 5 mg 10/23/21 22:00 10/25/21 09:59 Oxybutynin 5 Mg Tab PO 5 mg BID JANET Administration Oxycodone/Acetaminophen 1 tab 10/23/21 15:30 Oxycodone /Acetaminophen 5-325mg Tab PO Q16H PRN Pain, Moderate (4-6) Pravastatin Sodium 40 mg 10/23/21 22:00 10/24/21 21:26 Pravastatin 40 Mg Tab PO 40 mg QHS JANET Administration Simple Syrup 15 ml 10/24/21 10:30 Simple Syrup 15 Ml FEEDTUBE PRN PRN Hypoglycemia Simple Syrup 30 ml 10/24/21 10:30 Simple Syrup 15 Ml FEEDTUBE PRN PRN Hypoglycemia Sodium Bicarbonate 325 mg 10/24/21 10:30 Sodium Bicarbonate 325 Mg Tab FEEDTUBE PRN PRN For Clogged Feeding Tube Sodium Chloride 10 ml 10/23/21 22:00 10/25/21 10:01 Sodium Chloride 0.9% 10 Ml Flush Syringe IV 10 ml BID JANET Administration Sodium Chloride 10 ml 10/23/21 16:00 Sodium Chloride 0.9% 10 Ml Flush Syringe IV PRN PRN LINE FLUSH Sodium Chloride 10 ml 10/24/21 12:00 Sodium Chloride 0.9% 50 Ml Ivpb IV PRN PRN Line flush Tramadol HCl 50 mg 10/23/21 18:00 Tramadol 50 Mg Tab PO Q6H PRN Pain, Moderate (4-6) Nutrition/Malnutrition Assess - Dietary Evaluation Nutrition/Malnutrition Findings: Nutrition Notes Start: 10/24/21 10:42 Freq: Status: Active Protocol: Document 10/24/21 10:42 NAYAN (Rec: 10/24/21 11:22 NAYAN [id number]) Nutrition Notes Need for Assessment generated from: MD Order,Low BMI Initial or Follow up Assessment Current Diagnosis Diabetes,Hypertension, Respiratory Failure, Malnutrition Other Pertinent Diagnosis Pneumonia, UTI, NSTEMI, CHF, OA, Seizure, Meningioma, COVID -19 pui. Current Diet TF-Promote @ 38 ml/hr (since L 10/24). Labs/Tests 10/24: BUN 24. Pertinent Medications 10/24: Nutritionally unremarkable. Height 5 ft Weight 40 kg [place] Body Weight (kg) 45.45 BMI 17.2 Weight change and time frame None reported at admission. Weight Status Underweight Subjective/Other Information RD consult for Low BMI assessment and write/manage TF . Pt currently on NPO. Pt on mechanical ventilation. Pt has missing teeth and is swallow impaired, according to Physical Assessment History notes. Procedure 10/23: R-internal jugular vein triple-lumen cathter placement. Pt's Low BMI seems to correspond to a natural body composition, and not related to a sudden loss of body weight nor chronic malnutrition, since none were mentioned in the Physical Assessment History or the Progress notes. Percent of energy/protein needs met: Prescribed Promote @ 38 ml/hr provides for energy/protein needs (904 Kcal/57 g) during LOS, 100% Kcal; 100% AA. Burn Absent Trauma Absent GI Symptoms None Difficulty In Swallowing,Chewing Food Allergy No Skin Integrity/Comment Clear, warm, dry. Current % PO Other Minimum of two criteria No #1 Nutrition Diagnosis Inadequate oral intake, Underweight Etiology Pt on mechanical ventilation. As Evidenced by Signs and Symptoms Pt is currently on NPO. Is patient on ventilator? Yes Is Patient Ambulatory and/or Out of Bed No REE-([facility]-confined to bed) [phone] Calculation Used for Recommendations [facility] Additional Notes Protein: 1.2-1.5 g/Kg; 48-60 g /day. Fluids: 1 ml/Kcal, or as per MD. Nutrition Intervention Nutrition Support: Start Promote @ 38 ml/hr. Flush: 25 ml water Q 4 hr, or as per MD. Kcal 904 Protein (gm) 57 Carbohydrates (gm) 118 Fat (gm) 24 Fluid (mL) 759 Fiber (gm) 0 % RDI: 100% Kcal; 100% AA. Goal #1 Provide at least 75% of energy /protein needs through Enteral Feeding during LOS. Goal #2 Maintain body weight within +/ -3% of admission body weight during LOS. Follow-Up By: 10/25/21 Additional Comments Continue monitoring TF tolerance and BM. <KEN REGAN - Last Filed: 10/26/21 07:35> Assessment and Plan Assessment and plan: I saw and evaluated the patient. I agree with the findings and the plan of care as documented in the Nurse Practitioner's~note, with the following corrections and additions. Hospitalist Physical - Constitutional Vitals: Temp Pulse Resp BP Pulse Ox 97.3 F L 68 18 142/76 98 10/25/21 21:15 10/25/21 21:15 10/25/21 21:15 10/25/21 21:15 10/25/21 22:00 HEART Score - HEART Score Troponin: Troponin T 0.365 ng/mL (0.00-0.029) H* 10/24/21 05:30 Results - Labs CBC & Chem 7: 10/25/21 04:29 10/25/21 16:22 Labs: Laboratory Last Values WBC 7.9 K/mm3 (4.5-11.0) 10/25/21 04:29 RBC 5.58 M/mm3 (3.65-5.03) H 10/25/21 04:29 Hgb 12.1 gm/dl (10.1-14.3) 10/25/21 04:29 Hct 39.7 % (30.3-42.9) 10/25/21 04:29 MCV 71 fl (79-97) L 10/25/21 04:29 MCH 22 pg (28-32) L 10/25/21 04:29 MCHC 30 % (30-34) 10/25/21 04:29 RDW 14.7 % (13.2-15.2) 10/25/21 04:29 Plt Count 268 K/mm3 (140-440) 10/25/21 04:29 Lymph % (Auto) 13.5 % (13.4-35.0) 10/24/21 05:30 Meade % (Auto) 6.4 % (0.0-7.3) 10/24/21 05:30 Eos % (Auto) 0.0 % (0.0-4.3) 10/24/21 05:30 Baso % (Auto) 0.3 % (0.0-1.8) 10/24/21 05:30 Lymph # (Auto) 1.0 K/mm3 (1.2-5.4) L 10/24/21 05:30 Meade # (Auto) 0.5 K/mm3 (0.0-0.8) 10/24/21 05:30 Eos # (Auto) 0.0 K/mm3 (0.0-0.4) 10/24/21 05:30 Baso # (Auto) 0.0 K/mm3 (0.0-0.1) 10/24/21 05:30 Seg Neutrophils % 79.8 % (40.0-70.0) H 10/24/21 05:30 Seg Neutrophils # 5.8 K/mm3 (1.8-7.7) 10/24/21 05:30 PT 14.3 Sec. (12.2-14.9) 10/23/21 Unknown INR 1.00 (0.87-1.13) 10/23/21 Unknown APTT 22.0 Sec. (24.2-36.6) L 10/23/21 Unknown ABG pH 7.445 pH Units (7.350-7.450) 10/24/21 Unknown ABG pCO2 32.0 mm Hg 10/24/21 Unknown ABG pO2 122.4 mm Hg (80.0-90.0) H 10/24/21 Unknown ABG HCO3 21.5 mmol/L (20.0-26.0) 10/24/21 Unknown ABG O2 Saturation 98.5 % (95.0-99.0) 10/24/21 Unknown ABG O2 Content 17.5 (0.0-44) 10/24/21 Unknown ABG Base Excess -1.8 mmol/L (-2.0-3.0) 10/24/21 Unknown ABG Hemoglobin 12.7 gm/dl (12.0-16.0) 10/24/21 Unknown ABG Carboxyhemoglobin 1.1 % (0.0-5.0) 10/24/21 Unknown ABG Methemoglobin 0.5 % (0.0-1.5) 10/24/21 Unknown VBG pH Cancelled 10/23/21 13:35 Oxyhemoglobin 96.9 % (95.0-99.0) 10/24/21 Unknown FiO2 30 % 10/24/21 Unknown Sodium 138 mmol/L (137-145) 10/25/21 16:22 Potassium 3.9 mmol/L (3.6-5.0) D 10/25/21 16:22 Chloride 101.9 mmol/L (98-107) 10/25/21 16:22 Carbon Dioxide 25 mmol/L (22-30) 10/25/21 16:22 Anion Gap 15 mmol/L 10/25/21 16:22 BUN 21 mg/dL (7-17) H 10/25/21 16:22 Creatinine 0.7 mg/dL (0.6-1.2) 10/25/21 16:22 Estimated GFR > 60 ml/min 10/25/21 16:22 BUN/Creatinine Ratio 30 % 10/25/21 16:22 Glucose 162 mg/dL (65-100) H 10/25/21 16:22 POC Glucose 141 mg/dL (70-105) H 10/26/21 05:54 Lactic Acid 1.70 mmol/L (0.7-2.0) 10/23/21 Unknown Calcium 9.0 mg/dL (8.4-10.2) 10/25/21 16:22 Phosphorus 2.80 mg/dL (2.5-4.5) 10/25/21 04:29 Magnesium 2.30 mg/dL (1.7-2.3) 10/25/21 04:29 Total Bilirubin 0.50 mg/dL (0.1-1.2) 10/25/21 16:22 AST 32 units/L (5-40) 10/25/21 16:22 ALT 28 units/L (7-56) 10/25/21 16:22 Alkaline Phosphatase 81 units/L (35-129) 10/25/21 16:22 Ammonia 49.0 umol/L (25-60) 10/23/21 Unknown Troponin T 0.365 ng/mL (0.00-0.029) H* 10/24/21 05:30 C-Reactive Protein 7.10 mg/dL (0.00-1.30) H 10/24/21 16:11 Total Protein 6.6 g/dL (6.3-8.2) 10/25/21 16:22 Albumin 2.8 g/dL (3.9-5) L 10/25/21 16:22 Albumin/Globulin Ratio 0.7 % 10/25/21 16:22 Triglycerides 90 mg/dL (2-149) 10/23/21 Unknown Cholesterol 202 mg/dL (50-199) H 10/23/21 Unknown LDL Cholesterol Direct 139 mg/dL (50-130) H 10/23/21 Unknown HDL Cholesterol 36 mg/dL (40-59) L 10/23/21 Unknown Cholesterol/HDL Ratio 5.61 % 10/23/21 Unknown Procalcitonin 3.57 ng/mL (<0.15) 10/24/21 16:11 TSH 0.771 mlU/mL (0.270-4.200) 10/23/21 Unknown Free T4 1.81 ng/dL (0.76-1.46) H 10/23/21 Unknown Urine Color Yellow (Yellow) 10/23/21 Unknown Urine Turbidity Slightly-cloudy (Clear) 10/23/21 Unknown Urine pH 6.0 (5.0-7.0) 10/23/21 Unknown Ur Specific Novi 1.023 (1.003-1.030) 10/23/21 Unknown Urine Protein 100 mg/dl mg/dL (Negative) 10/23/21 Unknown Urine Glucose (UA) Neg mg/dL (Negative) 10/23/21 Unknown Urine Ketones Tr mg/dL (Negative) 10/23/21 Unknown Urine Blood Mod (Negative) 10/23/21 Unknown Urine Nitrite Neg (Negative) 10/23/21 Unknown Urine Bilirubin Neg (Negative) 10/23/21 Unknown Urine Urobilinogen 4.0 mg/dL (<2.0) 10/23/21 Unknown Ur Leukocyte Esterase Lg (Negative) 10/23/21 Unknown Urine WBC (Auto) 45.0 /HPF (0.0-6.0) H 10/23/21 Unknown Urine RBC (Auto) 30.0 /HPF (0.0-6.0) 10/23/21 Unknown U Epithel Cells (Auto) < 1.0 /HPF (0-13.0) 10/23/21 Unknown Urine Bacteria (Auto) 1+ /HPF (Negative) 10/23/21 Unknown Urine Mucus Few /HPF 10/23/21 Unknown Urine Yeast (Budding) 1+ /HPF 10/23/21 Unknown Coronavirus (PCR) Positive (Negative) A 10/24/21 08:20 Gonzalez/IV: Voiding Method External Female Catheter Active Medications - Current Medications Current Medications: Generic Name Dose Route Start Last Admin Trade Name Freq PRN Reason Stop Dose Admin Acetaminophen 650 mg 10/23/21 16:00 Acetaminophen 650 Mg Rect Supp DE Q6H PRN Pain MILD(1-3)/Fever >100.5/MARTINEZ Acetaminophen 650 mg 10/23/21 17:30 Acetaminophen 325 Mg Tab PO Q6H PRN Pain, Mild (1-3) Albuterol 2.5 mg 10/23/21 17:00 Albuterol 2.5 Mg/3 Ml Nebu IH Q3HRT PRN Shortness Of Breath Lipase/Protease/Amylase 1 each 10/24/21 10:30 Lipase 10,500/Protease 25,000/Amylase 43,750 (Units) Dr Stone FEEDTUBE PRN PRN For Clogged Feeding Tube Ascorbic Acid 500 mg 10/25/21 16:00 10/25/21 21:29 Ascorbic Acid 500 Mg Tab PO 500 mg BID JANET Administration Aspirin 81 mg 10/24/21 10:00 10/25/21 10:01 Aspirin 81 Mg Tab Chew PO 81 mg QDAY JANET Administration Dexamethasone 6 mg 10/25/21 16:00 10/25/21 16:47 Dexamethasone 4 Mg/Ml Vial IV 11/03/21 10:01 6 mg DAILY JANET Administration Dextrose 0 ml 10/23/21 17:00 Dextrose 10% *Hypoglycemia IV PRN PRN Hypoglycemia Furosemide 20 mg 10/24/21 10:00 10/25/21 09:59 Furosemide 20 Mg Tab PO 20 mg QDAY JANET Administration Gabapentin 300 mg 10/23/21 18:00 10/25/21 17:06 Gabapentin 300 Mg Cap PO 300 mg QPM JANET Administration Heparin Sodium (Porcine) 5,000 unit 10/23/21 22:00 10/25/21 21:30 Heparin 5,000 Unit/1 Ml Vial SUB-Q 5,000 unit Q12HR JANET Administration Hydralazine HCl 25 mg 10/23/21 22:00 10/26/21 05:56 Hydralazine 25 Mg Tab PO 25 mg Q8HR JANET Administration Hydromorphone HCl 0.5 mg 10/23/21 16:00 Hydromorphone 1 Mg/1 Ml Inj IV Q23H PRN Pain , Severe (7-10) Amiodarone HCl 900 mg/ 500 mls @ 33.333 mls/hr 10/23/21 14:00 10/24/21 04:30 Dextrose IV 0 mg/min DIRECT JANET 0 mls/hr Titration Protocol 1 MG/MIN Remdesivir 100 mg/ Sodium 250 mls @ 500 mls/hr 10/26/21 14:00 Chloride IV 10/29/21 14:29 Q24HR@1400 JANET Insulin Human Regular 0 units 10/23/21 16:00 10/26/21 06:06 Insulin Regular, Human 100 Units/1 Ml SUB-Q Not Given Q6H JANET Protocol Lansoprazole 30 mg 10/25/21 10:00 10/25/21 09:59 Lansoprazole 30 Mg Solutab FEEDTUBE 30 mg QDAY JANET Administration Levetiracetam 500 mg 10/24/21 22:00 10/25/21 21:29 Levetiracetam 500 Mg/5 Ml Oral Liqd PO 500 mg BID JANET Administration Metolazone 2.5 mg 10/23/21 22:00 10/25/21 21:32 Metolazone 2.5 Mg Tab PO 2.5 mg BID JANET Administration Multivit/Ca Carb/B Cmplx/FA/Prenat 1 cap 10/24/21 10:00 10/25/21 10:47 Folic Acid/Vit B Comp W-C 1 Mg (Renal Caps) PO Not Given QDAY JANET Oxybutynin Chloride 5 mg 10/23/21 22:00 10/25/21 21:29 Oxybutynin 5 Mg Tab PO 5 mg BID JANET Administration Oxycodone/Acetaminophen 1 tab 10/23/21 15:30 Oxycodone /Acetaminophen 5-325mg Tab PO Q16H PRN Pain, Moderate (4-6) Pravastatin Sodium 40 mg 10/23/21 22:00 10/25/21 21:29 Pravastatin 40 Mg Tab PO 40 mg QHS JANET Administration Simple Syrup 15 ml 10/24/21 10:30 Simple Syrup 15 Ml FEEDTUBE PRN PRN Hypoglycemia Simple Syrup 30 ml 10/24/21 10:30 Simple Syrup 15 Ml FEEDTUBE PRN PRN Hypoglycemia Sodium Bicarbonate 325 mg 10/24/21 10:30 Sodium Bicarbonate 325 Mg Tab FEEDTUBE PRN PRN For Clogged Feeding Tube Sodium Chloride 10 ml 10/23/21 22:00 10/25/21 21:29 Sodium Chloride 0.9% 10 Ml Flush Syringe IV 10 ml BID JANET Administration Sodium Chloride 10 ml 10/23/21 16:00 Sodium Chloride 0.9% 10 Ml Flush Syringe IV PRN PRN LINE FLUSH Sodium Chloride 10 ml 10/24/21 12:00 Sodium Chloride 0.9% 50 Ml Ivpb IV PRN PRN Line flush Sodium Chloride 50 ml 10/26/21 14:00 Sodium Chloride 0.9% 50 Ml Ivpb IV 10/30/21 14:01 [id number]@1400 JANET Tramadol HCl 50 mg 10/23/21 18:00 Tramadol 50 Mg Tab PO Q6H PRN Pain, Moderate (4-6) Zinc Sulfate 220 mg 10/25/21 16:00 10/25/21 23:05 Zinc Sulfate 220 Mg Cap PO 220 mg BID JANET Administration Nutrition/Malnutrition Assess - Dietary Evaluation Nutrition/Malnutrition Findings: Nutrition Notes Start: 10/24/21 10:42 Freq: Status: Active Protocol: Document 10/25/21 15:00 [facility] (Rec: 10/25/21 15:12 [facility] [id number]) Nutrition Notes 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 Pt remains on vent support. NGT was clogged last pm. New NGT inserted this am . RN reports TF now infusing at goal rate and pt tolerating TF. Percent of energy/protein needs met: 100% energy and pro Burn Absent Trauma Absent #2 Nutrition Diagnosis Underweight Etiology advanced age, multiple co- morbidities As Evidenced by Signs and Symptoms BMI 17.2 #1 Nutrition Diagnosis Inadequate oral intake Etiology mech ventilation As Evidenced by Signs and Symptoms pt NPO Is patient on ventilator? Yes Is Patient Ambulatory and/or Out of Bed No REE-([place]-confined to bed) 903.864 Kcal/Kg value to use for calculation 30 Approximate Energy Requirements Using 1200 kcal/Kg Calculation Used for Recommendations Kcal/kg Additional Notes Pro needs 1.2-2g/k-80g/ day Fluid needs 1ml/kcal Nutrition Intervention Nutrition Support: Increase TF rate to 45ml/hr ( to provide additional kcal for wt gain). Provide 50ml water flush q4h. Kcal 1,080 Protein (gm) 68 Carbohydrates (gm) 140 Fat (gm) 28 Fluid (mL) 906 Fiber (gm) 0 Goal #1 TF tolerance Goal #2 TF to meet 100% energy and pro needs Goal #3 Wt maintenance and/or gain Anticipated Discharge Needs: Continue EN support if necessary Follow-Up By: 10/28/21 Additional Comments F/U: TF rate increase/ tolerance, vent status
--- NOTE | 2021-10-25 14:09 | Progress Note ---
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 and advance diet as tolerated - tube feeds for now - continue supplemental oxygen to keep O2 sats > 90% - continue bronchodilators (HUMA) with pulm hygiene per RT - prn analgesia per pain score - continue to avoid nephrotoxins, renally dose all medications - mobility protocols to prevent pressure ulcers - PT/OT as tolerated - Wound care per RN/WCT - continue accuchecks with glycemic control per SSI for target blood glucose < 180 mg/dL - home oxygen evaluation at discharge - GI & VTE prophylaxis - Flu & pneumovax per protocol - Pulmonary out patient follow up for PFTs and optimization of respiratory status - continue other care per attending / other consultants COVID SPECIFIC INTERVENTIONS - Remdesivir as per ID/Pulmonary developed protocols (Ordered) - systemic steroids for severe COVID-19 infection empirically (Dexamethasone X 10 days) - follow repeat COVID tests results - zinc and vitamin C supplementation - Monitor inflammatory markers per facility protocol - ferritin, Ddimer, CRP - therapeutic anticoagulation per system Protocol based on d-dimer and clinical considerations (prophylaxis dosing) - Continue contact and airborne isolation ... re-evaluate in am & prn ... transfer to medical floor Subjective Date of service: 10/25/21 Principal diagnosis: AHRF s/p MVS; Pneumonia; NSTEMI; DM II; UTI; Seizures; CHF; Adult FTT Interval history: Patient is seen today for: Acute hypoxemic respiratory failure; Pneumonia; NSTEMI; DM II; UTI; Seizures; CHF; Adult FTT Seen and examined at bedside; 24hour events reviewed; nursing and respiratory care staff consulted; no adverse overnight events reported to me; resting in bed; doing well post extubation; alert; denies acy chest pain; No N/V/F/C Objective Vital Signs - 12hr 10/25/21 10/25/21 10/25/21 02:30 03:00 03:30 Temperature Pulse Rate 75 80 74 Pulse Rate [ From Monitor] Respiratory 15 15 16 Rate Blood Pressure 121/66 110/68 110/68 O2 Sat by Pulse 98 98 98 Oximetry 10/25/21 10/25/21 10/25/21 04:00 04:30 05:00 Temperature 98.5 F Pulse Rate 75 78 80 Pulse Rate [ 75 From Monitor] Respiratory 15 21 13 Rate Blood Pressure 98/71 98/71 107/68 O2 Sat by Pulse 99 99 Oximetry 10/25/21 10/25/21 10/25/21 05:31 06:01 06:31 Temperature Pulse Rate 73 75 79 Pulse Rate [ From Monitor] Respiratory 16 15 27 H Rate Blood Pressure 107/68 115/73 115/73 O2 Sat by Pulse 100 100 100 Oximetry 10/25/21 10/25/21 10/25/21 07:00 07:31 07:55 Temperature Pulse Rate 80 91 H Pulse Rate [ From Monitor] Respiratory 22 25 H Rate Blood Pressure 114/63 114/63 O2 Sat by Pulse 96 97 97 Oximetry 10/25/21 10/25/21 10/25/21 08:00 08:01 08:31 Temperature 97.8 F Pulse Rate 81 73 Pulse Rate [ 80 From Monitor] Respiratory 15 19 17 Rate Blood Pressure 127/74 127/74 O2 Sat by Pulse 100 96 96 Oximetry 10/25/21 10/25/21 10/25/21 09:01 09:31 09:59 Temperature Pulse Rate 68 72 77 Pulse Rate [ From Monitor] Respiratory 13 14 Rate Blood Pressure 139/79 139/79 139/79 O2 Sat by Pulse 96 96 Oximetry 10/25/21 10/25/21 10/25/21 10:00 10:31 11:00 Temperature Pulse Rate 73 72 75 Pulse Rate [ From Monitor] Respiratory 21 20 22 Rate Blood Pressure 128/65 128/65 104/65 O2 Sat by Pulse 97 97 98 Oximetry 10/25/21 10/25/21 11:31 11:38 Temperature 97.4 F L Pulse Rate 76 Pulse Rate [ From Monitor] Respiratory 11 L Rate Blood Pressure 104/65 O2 Sat by Pulse 97 Oximetry Constitutional: no acute distress Eyes: non-icteric ENT: oropharynx moist Neck: supple, no lymphadenopathy, no JVD Effort: mildly labored Ascultation: Bilateral: diminished breath sounds, rhonchi Percussion: Bilateral: not dull Cardiovascular: regular rate and rhythm Gastrointestinal: normoactive bowel sounds, soft, non-tender, non-distended (protuberant) Integumentary: normal Extremities: no cyanosis, pulses normal, no ischemia or petechiae Neurologic: non-focal exam (grossly), pupils equal and round, CN II-XII normal Psychiatric: mood appropriate, affect normal CBC and BMP: 10/25/21 04:29 10/25/21 04:29 ABG, PT/INR, D-dimer: ABG ABG pH 7.445 pH Units (7.350-7.450) 10/24/21 Unknown ABG pCO2 32.0 mm Hg 10/24/21 Unknown ABG pO2 122.4 mm Hg (80.0-90.0) H 10/24/21 Unknown ABG O2 Saturation 98.5 % (95.0-99.0) 10/24/21 Unknown PT/INR, D-dimer PT 14.3 Sec. (12.2-14.9) 10/23/21 Unknown INR 1.00 (0.87-1.13) 10/23/21 Unknown Abnormal lab findings: Abnormal Labs 10/23/21 10/23/21 10/23/21 13:35 14:27 17:00 RBC 5.20 H MCV 73 L MCH 22 L Lymph % (Auto) 10.7 L Lymph # (Auto) 1.1 L Seg Neutrophils % 84.6 H Seg Neutrophils # 8.8 H APTT ABG pH 7.339 L ABG pO2 288.6 H ABG O2 Saturation 99.5 H ABG Base Excess -4.9 L ABG Hemoglobin 11.7 L Potassium Chloride Carbon Dioxide BUN Glucose POC Glucose 145 H Magnesium AST ALT Troponin T C-Reactive Protein Total Protein Albumin Cholesterol LDL Cholesterol Direct HDL Cholesterol Free T4 Urine WBC (Auto) Coronavirus (PCR) 10/23/21 10/23/21 10/23/21 22:38 23:50 Unknown RBC MCV MCH Lymph % (Auto) Lymph # (Auto) Seg Neutrophils % Seg Neutrophils # APTT ABG pH ABG pO2 ABG O2 Saturation ABG Base Excess ABG Hemoglobin Potassium Chloride Carbon Dioxide BUN Glucose POC Glucose 176 H Magnesium AST ALT Troponin T 0.321 H* D C-Reactive Protein Total Protein Albumin Cholesterol LDL Cholesterol Direct HDL Cholesterol Free T4 Urine WBC (Auto) 45.0 H Coronavirus (PCR) 10/23/21 10/23/21 10/23/21 Unknown Unknown Unknown RBC MCV MCH Lymph % (Auto) Lymph # (Auto) Seg Neutrophils % Seg Neutrophils # APTT 22.0 L ABG pH ABG pO2 ABG O2 Saturation ABG Base Excess ABG Hemoglobin Potassium 2.8 L* Chloride 110.1 H Carbon Dioxide 18 L BUN 24 H Glucose 202 H POC Glucose Magnesium 1.60 L AST 100 H ALT 65 H Troponin T 0.082 H C-Reactive Protein Total Protein 5.9 L Albumin 2.8 L Cholesterol 202 H LDL Cholesterol Direct 139 H HDL Cholesterol 36 L Free T4 1.81 H Urine WBC (Auto) Coronavirus (PCR) 10/24/21 10/24/21 10/24/21 05:30 05:30 05:30 RBC 5.27 H MCV 72 L MCH 22 L Lymph % (Auto) Lymph # (Auto) 1.0 L Seg Neutrophils % 79.8 H Seg Neutrophils # APTT ABG pH ABG pO2 ABG O2 Saturation ABG Base Excess ABG Hemoglobin Potassium Chloride Carbon Dioxide BUN 24 H Glucose POC Glucose Magnesium AST ALT Troponin T 0.365 H* C-Reactive Protein Total Protein Albumin Cholesterol LDL Cholesterol Direct HDL Cholesterol Free T4 Urine WBC (Auto) Coronavirus (PCR) 10/24/21 10/24/21 10/24/21 08:20 09:35 16:11 RBC MCV MCH Lymph % (Auto) Lymph # (Auto) Seg Neutrophils % Seg Neutrophils # APTT ABG pH 7.500 H ABG pO2 126.0 H ABG O2 Saturation ABG Base Excess ABG Hemoglobin Potassium Chloride Carbon Dioxide BUN Glucose POC Glucose Magnesium AST ALT Troponin T C-Reactive Protein 7.10 H Total Protein Albumin Cholesterol LDL Cholesterol Direct HDL Cholesterol Free T4 Urine WBC (Auto) Coronavirus (PCR) Positive A 10/24/21 10/25/21 10/25/21 Unknown 04:29 04:29 RBC 5.58 H MCV 71 L MCH 22 L Lymph % (Auto) Lymph # (Auto) Seg Neutrophils % Seg Neutrophils # APTT ABG pH ABG pO2 122.4 H ABG O2 Saturation ABG Base Excess ABG Hemoglobin Potassium 3.2 L Chloride Carbon Dioxide BUN 21 H Glucose 119 H POC Glucose Magnesium AST ALT Troponin T C-Reactive Protein Total Protein Albumin Cholesterol LDL Cholesterol Direct HDL Cholesterol Free T4 Urine WBC (Auto) Coronavirus (PCR) 10/25/21 06:08 RBC MCV MCH Lymph % (Auto) Lymph # (Auto) Seg Neutrophils % Seg Neutrophils # APTT ABG pH ABG pO2 ABG O2 Saturation ABG Base Excess ABG Hemoglobin Potassium Chloride Carbon Dioxide BUN Glucose POC Glucose 128 H Magnesium AST ALT Troponin T C-Reactive Protein Total Protein Albumin Cholesterol LDL Cholesterol Direct HDL Cholesterol Free T4 Urine WBC (Auto) Coronavirus (PCR) Allied health notes reviewed: nursing
--- NOTE | 2021-10-25 14:10 | Progress Note ---
Assessment and Plan - Patient Problems (1) Cardiopulmonary arrest Current Visit: Yes Status: Acute Plan to address problem: Frail elderly 89-year-old who is admitted following an out of hospital cardiopulmonary arrest. She has been successfully weaned off the ventilator. Subsequent COVID-19 test is positive. Echocardiogram shows moderate to severe concentric left ventricle hypertrophy, left ventricular systolic function within normal limit with ejection fraction 55 %. We will continue conservative cardiac management and follow-up. Subjective Date of service: 10/25/21 Principal diagnosis: Respiratory failure Interval history: Patient was extubated yesterday, currently breathing comfortably on room air, no acute distress. Her COVID-19 test ultimately came back positive. Objective Vital Signs Temp Pulse Pulse Resp BP Pulse Ox 10/25/21 11:38 97.4 F L 10/25/21 11:31 76 11 L 104/65 97 10/25/21 11:00 75 22 104/65 98 10/25/21 10:31 72 20 128/65 97 10/25/21 10:00 73 21 128/65 97 10/25/21 09:59 77 139/79 10/25/21 09:31 72 14 139/79 96 10/25/21 09:01 68 13 139/79 96 10/25/21 08:31 73 17 127/74 96 10/25/21 08:01 81 19 127/74 96 10/25/21 08:00 97.8 F 80 15 100 10/25/21 07:55 97 10/25/21 07:31 91 H 25 H 114/63 97 10/25/21 07:00 80 22 114/63 96 10/25/21 06:31 79 27 H 115/73 100 10/25/21 06:01 75 15 115/73 100 10/25/21 05:31 73 16 107/68 100 10/25/21 05:00 80 13 107/68 10/25/21 04:30 78 21 98/71 99 10/25/21 04:00 98.5 F 75 75 15 98/71 99 10/25/21 03:30 74 16 110/68 98 10/25/21 03:00 80 15 110/68 98 10/25/21 02:30 75 15 121/66 98 10/25/21 02:00 70 14 121/66 97 10/25/21 01:30 69 14 132/73 99 10/25/21 01:00 71 15 132/73 100 10/25/21 00:30 74 19 133/69 100 10/25/21 00:00 97.8 F 71 75 21 133/69 100 10/24/21 23:30 76 19 106/66 99 10/24/21 23:00 75 19 106/66 100 10/24/21 22:30 75 22 124/67 100 10/24/21 22:00 73 18 124/67 100 10/24/21 21:30 76 20 137/73 100 10/24/21 21:26 71 132/73 10/24/21 21:00 73 20 137/73 100 10/24/21 20:30 73 15 135/74 100 10/24/21 20:04 100 10/24/21 20:00 97.7 F 71 75 19 135/74 100 10/24/21 19:30 70 18 140/75 100 10/24/21 19:00 69 19 140/75 100 10/24/21 18:30 71 18 132/73 100 10/24/21 18:00 71 20 132/73 100 10/24/21 17:30 72 24 136/74 99 10/24/21 17:00 73 24 136/74 99 10/24/21 16:35 62 22 99 10/24/21 16:30 72 23 122/71 99 10/24/21 16:21 99 10/24/21 16:20 99 10/24/21 16:00 68 20 122/71 99 10/24/21 15:30 77 23 132/77 99 10/24/21 15:00 73 20 132/77 10/24/21 14:30 73 21 126/74 98 - Physical Examination Narrative exam: Full physical exam is deferred due to acute Covid infection. General: Cachectic, Other (Comfortable, no acute distress) HEENT: Positive: Other (Pupils fixed) - Labs and Meds CBC 10/25/21 Range/Units 04:29 WBC 7.9 (4.5-11.0) K/mm3 RBC 5.58 H (3.65-5.03) M/mm3 Hgb 12.1 (10.1-14.3) gm/dl Hct 39.7 (30.3-42.9) % Plt Count 268 (140-440) K/mm3 Comprehensive Metabolic Panel 10/25/21 Range/Units 04:29 Sodium 138 (137-145) mmol/L Potassium 3.2 L (3.6-5.0) mmol/L Chloride 101.0 (98-107) mmol/L Carbon Dioxide 25 (22-30) mmol/L BUN 21 H (7-17) mg/dL Creatinine 0.8 (0.6-1.2) mg/dL Glucose 119 H (65-100) mg/dL Calcium 9.1 (8.4-10.2) mg/dL
--- NOTE | 2021-10-25 14:29 | Electrocardiograph Report ---
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
--- NOTE | 2021-10-25 14:33 | Electrocardiograph Report ---
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
--- NOTE | 2021-10-25 14:34 | Electrocardiograph Report ---
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
[2021-10-25] MEDS ORDERED: REMDESIVIR 200 MG in SODIUM CHLORIDE 0.9% 250ML 250 ML IV ONE (15:53)
[2021-10-25] MEDS: dexAMETHasone 4 MG/ML VIAL IV SCH (16:47)
[2021-10-25] MEDS: ASCORBIC ACID 500 MG TAB PO SCH ×2 (16:47→21:29)
[2021-10-25 16:59] LABS: Alanine Aminotransferase 28 units/L (7-56); Albumin 2.8 g/dL (3.9-5); Blood Urea Nitrogen 21 mg/dL (7-17); Hemolysis Index 67
[2021-10-25] MEDS: ZINC SULFATE 220 MG CAP PO SCH ×2 (17:05→23:05)
[2021-10-25 17:06] LABS: BUN/Creatinine Ratio 30
[2021-10-25] MEDS: GABAPENTIN 300 MG CAP PO SCH (17:06)
[2021-10-25] MEDS: PRAVASTATIN 40 MG TAB PO SCH (21:29)
[2021-10-26] MEDS: hydrALAZINE 25 MG TAB PO SCH ×3 (05:56→21:40)
[2021-10-26] MEDS: INSULIN REGULAR, HUMAN 100 UNITS/1 ML SUB-Q SCH ×4 (05:57→18:00)
[2021-10-26] MEDS: metOLazone 2.5 MG TAB PO SCH ×2 (10:00→21:40)
[2021-10-26] MEDS: ASPIRIN 81 MG TAB CHEW PO SCH (10:11)
[2021-10-26] MEDS: levETIRAcetam 500 MG/5 ML ORAL LIQD PO SCH ×2 (10:11→21:40)
[2021-10-26] MEDS: ZINC SULFATE 220 MG CAP PO SCH ×2 (10:11→21:40)
[2021-10-26] MEDS: FUROSEMIDE 20 MG TAB PO SCH (10:11)
[2021-10-26] MEDS: LANSOPRAZOLE 30 MG SOLUTAB FEEDTUBE SCH (10:11)
[2021-10-26] MEDS: FOLIC ACID/VIT B COMP W-C 1 MG (RENAL CAPS) PO SCH (10:11)
[2021-10-26] MEDS: OXYBUTYNIN 5 MG TAB PO SCH ×2 (10:13→21:41)
[2021-10-26] MEDS: ASCORBIC ACID 500 MG TAB PO SCH ×2 (10:13→21:41)
[2021-10-26] MEDS: HEPARIN 5,000 UNIT/1 ML VIAL SUB-Q SCH ×2 (10:13→21:53)
[2021-10-26] MEDS: dexAMETHasone 4 MG/ML VIAL IV SCH (10:13)
--- NOTE | 2021-10-26 12:13 | Progress Note ---
Assessment and Plan 1. Cardiopulmonary arrest: Frail elderly 89-year-old who is admitted following an out of hospital cardiopulmonary arrest. She was found to have respiratory failure and is Covid positive. There was initially concern regarding VT but we were unable to find any documentation. Amiodarone has been stopped. She has been successfully weaned off the ventilator. 2. Troponin elevation: Due to cardiopulmonary arrest as noted above. Echocardiogram shows moderate to severe concentric left ventricle hypertrophy, left ventricular systolic function within normal limit with ejection fraction 55 %. We will continue conservative cardiac management. Subjective Date of service: 10/26/21 Principal diagnosis: AHRF s/p MVS; Pneumonia; NSTEMI; DM II; UTI; Seizures; CHF; Adult FTT Interval history: No acute events Objective Vital Signs Temp Pulse Pulse Resp BP Pulse Ox 10/26/21 08:55 96 10/25/21 22:00 98 10/25/21 21:15 97.3 F L 68 18 142/76 97 10/25/21 20:00 80 20 100 10/25/21 17:45 69 24 145/70 96 10/25/21 17:31 65 24 145/70 96 10/25/21 17:15 78 22 145/70 96 10/25/21 17:01 77 26 H 145/70 96 10/25/21 16:45 72 26 H 122/94 96 10/25/21 16:31 78 28 H 122/94 96 10/25/21 16:15 73 21 122/94 96 10/25/21 16:01 73 24 122/94 96 10/25/21 16:00 97.6 F 71 22 100 10/25/21 15:45 73 26 H 102/68 96 10/25/21 15:31 69 24 102/68 96 10/25/21 15:01 79 22 75/53 96 10/25/21 14:31 74 21 115/65 98 10/25/21 14:01 74 23 118/67 98 10/25/21 13:31 75 26 H 118/67 97 10/25/21 13:00 74 21 118/67 98 10/25/21 12:31 86 29 H 111/60 97 - Physical Examination General: Cachectic, Other (Comfortable, no acute distress) HEENT: Positive: Other (Pupils fixed) Neck: Positive: neck supple Cardiac: Positive: Reg Rate and Rhythm Lungs: Positive: Decreased Breath Sounds Neuro: Positive: Other (Unresponsive, on the vent) Abdomen: Positive: Soft Skin: Positive: Clear Extremities: Absent: edema - Labs and Meds Cardiac Enzymes 10/25/21 Range/Units 16:22 AST 32 (5-40) units/L Comprehensive Metabolic Panel 10/25/21 Range/Units 16:22 Sodium 138 (137-145) mmol/L Potassium 3.9 D (3.6-5.0) mmol/L Chloride 101.9 (98-107) mmol/L Carbon Dioxide 25 (22-30) mmol/L BUN 21 H (7-17) mg/dL Creatinine 0.7 (0.6-1.2) mg/dL Glucose 162 H (65-100) mg/dL Calcium 9.0 (8.4-10.2) mg/dL AST 32 (5-40) units/L ALT 28 (7-56) units/L Alkaline Phosphatase 81 (35-129) units/L Total Protein 6.6 (6.3-8.2) g/dL Albumin 2.8 L (3.9-5) g/dL - Allied health notes Allied health notes reviewed: nursing
--- NOTE | 2021-10-26 12:55 | Progress Note ---
Assessment and Plan Assessment and Plan #Acute hypoxemic respiratory failure #Aspiration Pneumonia #COVID positive IV dexamethasone and IV remdesivir #NSTEMI (non-ST elevated myocardial infarction) --Cardiopulmonary arrest: Frail elderly 89-year-old who is admitted following an out of hospital cardiopulmonary arrest. She was found to have respiratory failure and is Covid positive. There was initially concern regarding VT but we were unable to find any documentation. Amiodarone has been stopped. She has been successfully weaned off the ventilator. --Troponin elevation: Due to cardiopulmonary arrest as noted above. Echocardiogram shows moderate to severe concentric left ventricle hypertrophy, left ventricular systolic function within normal limit with ejection fraction 55 %. We will continue conservative cardiac management. #Atrial Fibrilation No A. fib at this point In sinus rhythm with first-degree AV block #CHF (congestive heart failure) EF is near normal No diuretics # VTACH There was initially concern regarding VT but we were unable to find any documentation. Amiodarone has been stopped. She has been successfully weaned off the ventilator. #UTI (urinary tract infection) Resolved #Seizure disorder On seizure medication #Meningioma - Patient has a history - CT head reviewed - Continue Keppra therapy - seizure precautions - supportive care #Type 2 Diabetes - SSI Q6hrs - Avoid hypoglycemia #GI/DVT prophylaxis - Continue PPI- Prevacid - Continue AC- Heparin SubQ - SCDs bilateral lower extremities while in bed Subjective Date of service: 10/26/21 Principal diagnosis: AHRF s/p MVS; Pneumonia; NSTEMI; DM II; UTI; Seizures; CHF; Adult FTT Interval history: This is a 89-year-old female with past medical history of CHF, HTN, DM, Seizure disorder, meningioma, OA, and malnutrition admitted for acute hypoxemic respiratory failure secondary to aspiration pneumonia requiring ventilatory support. Hospital Course to Date: 10/24: Intubated and sedated, RASS-5 on versed gtt, on low vent setting. Will do a sedation vacation to assess patient's mental status. Patient was on amio gtt for VTACH/Afib, now on hold due to bradycardia. Patient is SR on the monitor this am, HR 60-70s, not on any pressors. Pending cardiology consult. Patient is afebrile, wbcs normal, with no report of any diarrhea/loose stools, will hold flagyl for now. Continue IV Levaquin for now, COVID PCR result is pending. /: S/p extubation currently stable on RA. Patient is nonverval but awake, per family this is her baseline. Speech izaiaho laurenal ordered, continue TF for now. IV decadron and IV remdesiver initiated per CCM. Patient is stable for transfer to the floor. Objective - Constitutional Vitals: Vital Signs - 12hr 10/26/21 08:55 O2 Sat by Pulse 96 Oximetry - Labs CBC & Chem 7: 10/25/21 04:29 10/25/21 16:22 Labs: Abnormal lab results 10/25/21 10/25/21 10/25/21 Range/Units 16:19 16:22 21:17 BUN 21 H (7-17) mg/dL Glucose 162 H (65-100) mg/dL POC Glucose 146 H 115 H (70-105) mg/dL Albumin 2.8 L (3.9-5) g/dL 10/26/21 10/26/21 Range/Units 05:54 11:37 BUN (7-17) mg/dL Glucose (65-100) mg/dL POC Glucose 141 H 125 H (70-105) mg/dL Albumin (3.9-5) g/dL HEART Score - HEART Score Troponin: Troponin T 0.365 ng/mL (0.00-0.029) H* 10/24/21 05:30
[2021-10-26] MEDS: REMDESIVIR 100 MG in SODIUM CHLORIDE 0.9% 250ML 250 ML IV SCH (13:45)
[2021-10-26] MEDS: SODIUM CHLORIDE 0.9% 50 ML IVPB IV SCH (14:06)
--- NOTE | 2021-10-26 14:06 | Progress Note ---
Assessment and Plan Acute hypoxemic respiratory failure on MVS Possible aspiration pneumonia NSTEMI Metabolic acidosis Hypokalemia DM II Urinary tract infection Seizures CHF History of meningioma Osteoarthritis Oropharyngeal dysphagia Adult failure to thrive Elevated serum transaminases - suspect she is back to mental status baseline - advance diet per [facility] team - continue care as below otherwise; - continue supplemental oxygen to keep O2 sats > 90% - continue bronchodilators (HUMA) with pulm hygiene per RT - prn analgesia per pain score - continue to avoid nephrotoxins, renally dose all medications - mobility protocols to prevent pressure ulcers - PT/OT as tolerated - Wound care per RN/WCT - continue accuchecks with glycemic control per SSI for target blood glucose < 180 mg/dL - home oxygen evaluation at discharge - GI & VTE prophylaxis - Flu & pneumovax per protocol - Pulmonary out patient follow up for PFTs and optimization of respiratory status - continue other care per attending / other consultants COVID SPECIFIC INTERVENTIONS - Remdesivir as per ID/Pulmonary developed protocols (Ordered) - systemic steroids for severe COVID-19 infection empirically (Dexamethasone X 10 days) - follow repeat COVID tests results - zinc and vitamin C supplementation - Monitor inflammatory markers per facility protocol - ferritin, Ddimer, CRP - therapeutic anticoagulation per system Protocol based on d-dimer and clinical considerations (prophylaxis dosing) - Continue contact and airborne isolation ... re-evaluate in am & prn Subjective Date of service: 10/26/21 Principal diagnosis: AHRF s/p MVS; Pneumonia; NSTEMI; DM II; UTI; Seizures; CHF; Adult FTT Interval history: Patient is seen today for: Acute hypoxemic respiratory failure; Pneumonia; NSTEMI; DM II; UTI; Seizures; CHF; Adult FTT Seen and examined at bedside; 24hour events reviewed; nursing and respiratory care staff consulted; no adverse overnight events reported to me; resting in bed; remains on tube feeds; alert; No N/V/F/C Objective Vital Signs - 12hr 10/26/21 08:55 O2 Sat by Pulse 96 Oximetry Constitutional: no acute distress Eyes: non-icteric ENT: oropharynx moist Neck: supple, no lymphadenopathy, no JVD Effort: normal Ascultation: Bilateral: diminished breath sounds, rhonchi Percussion: Bilateral: not dull Cardiovascular: regular rate and rhythm Gastrointestinal: normoactive bowel sounds, soft, non-tender, non-distended (protuberant) Integumentary: normal Extremities: no cyanosis, pulses normal, no ischemia or petechiae Neurologic: non-focal exam (grossly), pupils equal and round, CN II-XII normal Psychiatric: mood appropriate, affect normal CBC and BMP: 10/27/21 06:53 10/27/21 06:53 ABG, PT/INR, D-dimer: ABG ABG pH 7.445 pH Units (7.350-7.450) 10/24/21 Unknown ABG pCO2 32.0 mm Hg 10/24/21 Unknown ABG pO2 122.4 mm Hg (80.0-90.0) H 10/24/21 Unknown ABG O2 Saturation 98.5 % (95.0-99.0) 10/24/21 Unknown PT/INR, D-dimer PT 14.3 Sec. (12.2-14.9) 10/23/21 Unknown INR 1.00 (0.87-1.13) 10/23/21 Unknown Abnormal lab findings: Abnormal Labs 10/23/21 10/23/21 10/23/21 13:35 14:27 17:00 RBC 5.20 H MCV 73 L MCH 22 L Lymph % (Auto) 10.7 L Lymph # (Auto) 1.1 L Seg Neutrophils % 84.6 H Seg Neutrophils # 8.8 H APTT ABG pH 7.339 L ABG pO2 288.6 H ABG O2 Saturation 99.5 H ABG Base Excess -4.9 L ABG Hemoglobin 11.7 L Potassium Chloride Carbon Dioxide BUN Glucose POC Glucose 145 H Magnesium AST ALT Troponin T C-Reactive Protein Total Protein Albumin Cholesterol LDL Cholesterol Direct HDL Cholesterol Free T4 Urine WBC (Auto) Coronavirus (PCR) 10/23/21 10/23/21 10/23/21 22:38 23:50 Unknown RBC MCV MCH Lymph % (Auto) Lymph # (Auto) Seg Neutrophils % Seg Neutrophils # APTT ABG pH ABG pO2 ABG O2 Saturation ABG Base Excess ABG Hemoglobin Potassium Chloride Carbon Dioxide BUN Glucose POC Glucose 176 H Magnesium AST ALT Troponin T 0.321 H* D C-Reactive Protein Total Protein Albumin Cholesterol LDL Cholesterol Direct HDL Cholesterol Free T4 Urine WBC (Auto) 45.0 H Coronavirus (PCR) 10/23/21 10/23/21 10/23/21 Unknown Unknown Unknown RBC MCV MCH Lymph % (Auto) Lymph # (Auto) Seg Neutrophils % Seg Neutrophils # APTT 22.0 L ABG pH ABG pO2 ABG O2 Saturation ABG Base Excess ABG Hemoglobin Potassium 2.8 L* Chloride 110.1 H Carbon Dioxide 18 L BUN 24 H Glucose 202 H POC Glucose Magnesium 1.60 L AST 100 H ALT 65 H Troponin T 0.082 H C-Reactive Protein Total Protein 5.9 L Albumin 2.8 L Cholesterol 202 H LDL Cholesterol Direct 139 H HDL Cholesterol 36 L Free T4 1.81 H Urine WBC (Auto) Coronavirus (PCR) 10/24/21 10/24/21 10/24/21 05:30 05:30 05:30 RBC 5.27 H MCV 72 L MCH 22 L Lymph % (Auto) Lymph # (Auto) 1.0 L Seg Neutrophils % 79.8 H Seg Neutrophils # APTT ABG pH ABG pO2 ABG O2 Saturation ABG Base Excess ABG Hemoglobin Potassium Chloride Carbon Dioxide BUN 24 H Glucose POC Glucose Magnesium AST ALT Troponin T 0.365 H* C-Reactive Protein Total Protein Albumin Cholesterol LDL Cholesterol Direct HDL Cholesterol Free T4 Urine WBC (Auto) Coronavirus (PCR) 10/24/21 10/24/21 10/24/21 08:20 09:35 16:11 RBC MCV MCH Lymph % (Auto) Lymph # (Auto) Seg Neutrophils % Seg Neutrophils # APTT ABG pH 7.500 H ABG pO2 126.0 H ABG O2 Saturation ABG Base Excess ABG Hemoglobin Potassium Chloride Carbon Dioxide BUN Glucose POC Glucose Magnesium AST ALT Troponin T C-Reactive Protein 7.10 H Total Protein Albumin Cholesterol LDL Cholesterol Direct HDL Cholesterol Free T4 Urine WBC (Auto) Coronavirus (PCR) Positive A 10/24/21 10/25/21 10/25/21 Unknown 04:29 04:29 RBC 5.58 H MCV 71 L MCH 22 L Lymph % (Auto) Lymph # (Auto) Seg Neutrophils % Seg Neutrophils # APTT ABG pH ABG pO2 122.4 H ABG O2 Saturation ABG Base Excess ABG Hemoglobin Potassium 3.2 L Chloride Carbon Dioxide BUN 21 H Glucose 119 H POC Glucose Magnesium AST ALT Troponin T C-Reactive Protein Total Protein Albumin Cholesterol LDL Cholesterol Direct HDL Cholesterol Free T4 Urine WBC (Auto) Coronavirus (PCR) 10/25/21 10/25/21 10/25/21 06:08 16:19 16:22 RBC MCV MCH Lymph % (Auto) Lymph # (Auto) Seg Neutrophils % Seg Neutrophils # APTT ABG pH ABG pO2 ABG O2 Saturation ABG Base Excess ABG Hemoglobin Potassium Chloride Carbon Dioxide BUN 21 H Glucose 162 H POC Glucose 128 H 146 H Magnesium AST ALT Troponin T C-Reactive Protein Total Protein Albumin 2.8 L Cholesterol LDL Cholesterol Direct HDL Cholesterol Free T4 Urine WBC (Auto) Coronavirus (PCR) 10/25/21 10/26/21 10/26/21 21:17 05:54 11:37 RBC MCV MCH Lymph % (Auto) Lymph # (Auto) Seg Neutrophils % Seg Neutrophils # APTT ABG pH ABG pO2 ABG O2 Saturation ABG Base Excess ABG Hemoglobin Potassium Chloride Carbon Dioxide BUN Glucose POC Glucose 115 H 141 H 125 H Magnesium AST ALT Troponin T C-Reactive Protein Total Protein Albumin Cholesterol LDL Cholesterol Direct HDL Cholesterol Free T4 Urine WBC (Auto) Coronavirus (PCR) Allied health notes reviewed: nursing
[2021-10-26 15:20] LABS: Hematocrit 40.8 % (30.3-42.9); Hemoglobin 12.7 gm/dl (10.1-14.3); Mean Corpuscular HGB Conc 31 % (30-34); Mean Corpuscular Volume 72 fl (79-97); Platelet Count 333 K/mm3 (140-440); Red Blood Count 5.68 M/mm3 (3.65-5.03); Red Cell Distribution Width 14.6 % (13.2-15.2)
[2021-10-26 15:35] LABS: Alanine Aminotransferase 24 units/L (7-56); Albumin 3.1 g/dL (3.9-5); Blood Urea Nitrogen 25 mg/dL (7-17); Calcium 9.1 mg/dL (8.4-10.2); Hemolysis Index 43
[2021-10-26 15:41] LABS: BUN/Creatinine Ratio 42
[2021-10-26] MEDS: GABAPENTIN 300 MG CAP PO SCH (18:00)
[2021-10-26] MEDS: PRAVASTATIN 40 MG TAB PO SCH (21:40)
[2021-10-27] MEDS: INSULIN REGULAR, HUMAN 100 UNITS/1 ML SUB-Q SCH ×5 (02:37→23:24)
[2021-10-27] MEDS: hydrALAZINE 25 MG TAB PO SCH ×3 (06:48→21:10)
[2021-10-27 08:10] LABS: Basophils % (Auto) 0.2 % (0.0-1.8); Eosinophils % (Auto) 0.1 % (0.0-4.3); Hematocrit 38.1 % (30.3-42.9); Hemoglobin 12.1 gm/dl (10.1-14.3); Lymphocytes # (Auto) 1.4 K/mm3 (1.2-5.4); Lymphocytes % (Auto) 18.6 % (13.4-35.0); Mean Corpuscular HGB Conc 32 % (30-34); Mean Corpuscular Volume 72 fl (79-97); Monocytes # (Auto) 0.5 K/mm3 (0.0-0.8); Monocytes % (Auto) 6.3 % (0.0-7.3); Platelet Count 310 K/mm3 (140-440); Red Blood Count 5.31 M/mm3 (3.65-5.03); Red Cell Distribution Width 14.4 % (13.2-15.2)
[2021-10-27 08:20] LABS: Alanine Aminotransferase 19 units/L (7-56); Albumin 2.7 g/dL (3.9-5); Blood Urea Nitrogen 32 mg/dL (7-17); Calcium 8.9 mg/dL (8.4-10.2); Hemolysis Index 22
[2021-10-27 08:27] LABS: BUN/Creatinine Ratio 46
[2021-10-27] MEDS: ASPIRIN 81 MG TAB CHEW PO SCH (09:45)
[2021-10-27] MEDS: ASCORBIC ACID 500 MG TAB PO SCH ×2 (09:45→21:11)
[2021-10-27] MEDS: levETIRAcetam 500 MG/5 ML ORAL LIQD PO SCH ×2 (09:45→21:10)
[2021-10-27] MEDS: LANSOPRAZOLE 30 MG SOLUTAB FEEDTUBE SCH (09:45)
[2021-10-27] MEDS: FOLIC ACID/VIT B COMP W-C 1 MG (RENAL CAPS) PO SCH (09:45)
[2021-10-27] MEDS: ZINC SULFATE 220 MG CAP PO SCH ×2 (09:45→21:12)
[2021-10-27] MEDS: FUROSEMIDE 20 MG TAB PO SCH (09:45)
[2021-10-27] MEDS: OXYBUTYNIN 5 MG TAB PO SCH ×2 (09:45→21:10)
[2021-10-27] MEDS: HEPARIN 5,000 UNIT/1 ML VIAL SUB-Q SCH ×2 (09:46→21:11)
[2021-10-27] MEDS: dexAMETHasone 4 MG/ML VIAL IV SCH (09:46)
[2021-10-27] MEDS: metOLazone 2.5 MG TAB PO SCH ×2 (10:12→21:11)
--- NOTE | 2021-10-27 12:32 | Progress Note ---
Assessment and Plan 1. Cardiopulmonary arrest: Frail elderly 89-year-old who is admitted following an out of hospital cardiopulmonary arrest. She was found to have respiratory failure and is Covid positive. There was initially concern regarding VT but we were unable to find any documentation. Amiodarone has been stopped. She has been successfully weaned off the ventilator. 2. Troponin elevation: Due to cardiopulmonary arrest as noted above. Echocardiogram shows moderate to severe concentric left ventricle hypertrophy, left ventricular systolic function within normal limit with ejection fraction 55 %. We will continue conservative cardiac management. Subjective Date of service: 10/27/21 Principal diagnosis: AHRF s/p MVS; Pneumonia; NSTEMI; DM II; UTI; Seizures; CHF; Adult FTT Interval history: NO acute events Objective Vital Signs Temp Pulse Pulse Resp BP Pulse Ox 10/27/21 06:48 61 109/52 10/27/21 06:08 97.8 F 72 16 109/52 100 10/27/21 04:00 68 22 100 10/27/21 00:00 100 10/26/21 21:40 68 119/63 10/26/21 21:39 119/63 10/26/21 20:00 22 100 10/26/21 16:21 97.6 F 75 20 149/71 98 - Physical Examination General: Cachectic, Other (Comfortable, no acute distress) HEENT: Positive: Other (Pupils fixed) Neck: Positive: neck supple Cardiac: Positive: Reg Rate and Rhythm Lungs: Positive: Rhonchi Abdomen: Positive: Soft Skin: Positive: Clear Extremities: Absent: edema - Labs and Meds Cardiac Enzymes 10/26/21 10/27/21 Range/Units 14:28 06:53 AST 24 20 (5-40) units/L CBC 10/26/21 10/27/21 Range/Units 14:28 06:53 WBC 7.9 7.3 (4.5-11.0) K/mm3 RBC 5.68 H 5.31 H (3.65-5.03) M/mm3 Hgb 12.7 12.1 (10.1-14.3) gm/dl Hct 40.8 38.1 (30.3-42.9) % Plt Count 333 310 (140-440) K/mm3 Lymph # (Auto) 1.4 (1.2-5.4) K/mm3 [place] # (Auto) 0.5 (0.0-0.8) K/mm3 Eos # (Auto) 0.0 (0.0-0.4) K/mm3 Baso # (Auto) 0.0 (0.0-0.1) K/mm3 Comprehensive Metabolic Panel 10/26/21 10/27/21 Range/Units 14:28 06:53 Sodium 135 L 135 L (137-145) mmol/L Potassium 4.2 4.2 (3.6-5.0) mmol/L Chloride 96.6 L 97.2 L (98-107) mmol/L Carbon Dioxide 25 25 (22-30) mmol/L BUN 25 H 32 H (7-17) mg/dL Creatinine 0.6 0.7 (0.6-1.2) mg/dL Glucose 131 H 173 H (65-100) mg/dL Calcium 9.1 8.9 (8.4-10.2) mg/dL AST 24 20 (5-40) units/L ALT 24 19 (7-56) units/L Alkaline Phosphatase 83 74 (35-129) units/L Total Protein 6.3 6.2 L (6.3-8.2) g/dL Albumin 3.1 L 2.7 L (3.9-5) g/dL - Allied health notes Allied health notes reviewed: nursing
--- NOTE | 2021-10-27 14:11 | Progress Note ---
Assessment and Plan Assessment and Plan #Acute hypoxemic respiratory failure On room air now #Aspiration Pneumonia Continue antibiotics Passed speech eval today #COVID positive IV dexamethasone and IV remdesivir #NSTEMI (non-ST elevated myocardial infarction) --Cardiopulmonary arrest: Frail elderly 89-year-old who is admitted following an out of hospital cardiopulmonary arrest. She was found to have respiratory failure and is Covid positive. There was initially concern regarding VT but we were unable to find any documentation. Amiodarone has been stopped. She has been successfully weaned off the ventilator. --Troponin elevation: Due to cardiopulmonary arrest as noted above. Echocardiogram shows moderate to severe concentric left ventricle hypertrophy, left ventricular systolic function within normal limit with ejection fraction 55 %. We will continue conservative cardiac management. #Atrial Fibrilation No A. fib at this point In sinus rhythm with first-degree AV block #CHF (congestive heart failure) EF is near normal No diuretics # VTACH There was initially concern regarding VT but we were unable to find any documentation. Amiodarone has been stopped. She has been successfully weaned off the ventilator. #UTI (urinary tract infection) Resolved #Seizure disorder On seizure medication #Meningioma - Patient has a history - CT head reviewed - Continue Keppra therapy - seizure precautions - supportive care #Type 2 Diabetes - SSI Q6hrs - Avoid hypoglycemia #GI/DVT prophylaxis - Continue PPI- Prevacid - Continue AC- Heparin SubQ - SCDs bilateral lower extremities while in bed Subjective Date of service: 10/27/21 Principal diagnosis: AHRF s/p MVS; Pneumonia; NSTEMI; DM II; UTI; Seizures; CHF; Adult FTT Interval history: This is a 89-year-old female with past medical history of CHF, HTN, DM, Seizure disorder, meningioma, OA, and malnutrition admitted for acute hypoxemic resp iratory failure secondary to aspiration pneumonia requiring ventilatory support. Hospital Course to Date: 10/24: Intubated and sedated, RASS-5 on versed gtt, on low vent setting. Will do a sedation vacation to assess patient's mental status. Patient was on amio gtt for VTACH/Afib, now on hold due to bradycardia. Patient is SR on the monitor this am, HR 60-70s, not on any pressors. Pending cardiology consult. Patient is afebrile, wbcs normal, with no report of any diarrhea/loose stools, will hold flagyl for now. Continue IV Levaquin for now, COVID PCR result is pending. 10/25: S/p extubation currently stable on RA. Patient is nonverval but awake, per family this is her baseline. Speech colleen xiong ordered, continue TF for now. IV decadron and IV remdesiver initiated per CCM. Patient is stable for transfer to the floor. October S/p extubation Patient stable on room air Patient on Decadron and IV remdesivir October 27, 2021 S/p extubation Patient stable on room air Patient on Decadron and IV remdesivir Swallow evaluation--complete Discontinue NG tube Start pured diet More alert and states she is in the hospital Tried calling son at phone number [phone]-mailbox was full, left the floor number [phone] to contact me Objective - Constitutional Vitals: Vital Signs - 12hr 10/27/21 10/27/21 10/27/21 04:00 06:08 06:48 Temperature 97.8 F Pulse Rate 72 61 Pulse Rate [ 68 From Monitor] Respiratory 22 16 Rate Blood Pressure 109/52 109/52 O2 Sat by Pulse 100 100 Oximetry 10/27/21 12:56 Temperature 99.1 F Pulse Rate 76 Pulse Rate [ From Monitor] Respiratory 18 Rate Blood Pressure 116/65 O2 Sat by Pulse 95 Oximetry General appearance: Present: no acute distress, well-nourished - EENT Eyes: PERRL, EOM intact ENT: hearing intact, clear oral mucosa Ears: bilateral: normal - Neck Neck: supple, normal ROM - Respiratory Respiratory effort: normal Respiratory: bilateral: CTA - Breasts Breasts: normal - Cardiovascular Heart rate: 78 Rhythm: regular Heart Sounds: Present: S1 & S2. Absent: gallop, rub Extremities: pulses intact, No edema, normal color, Full ROM - Gastrointestinal General gastrointestinal: Present: soft, non-tender, non-distended, normal bowel sounds - Genitourinary Female genitourinary: normal - Integumentary Integumentary: clear, warm, dry - Musculoskeletal Musculoskeletal: strength equal bilaterally, generalized weakness - Neurologic Neurologic: moves all extremities, other (More alert and responsive) - Psychiatric Psychiatric: appropriate mood/affect, intact judgment & insight, memory intact (Patient says she is in the hospital) - Labs CBC & Chem 7: 10/27/21 06:53 10/27/21 06:53 Labs: Abnormal lab results 10/26/21 10/26/21 10/26/21 Range/Units 14:28 14:28 17:15 RBC 5.68 H (3.65-5.03) M/mm3 MCV 72 L (79-97) fl MCH 22 L (28-32) pg Seg Neutrophils % (40.0-70.0) % Sodium 135 L (137-145) mmol/L Chloride 96.6 L (98-107) mmol/L BUN 25 H (7-17) mg/dL Glucose 131 H (65-100) mg/dL POC Glucose 123 H (70-105) mg/dL Total Protein (6.3-8.2) g/dL Albumin 3.1 L (3.9-5) g/dL 10/26/21 10/27/21 10/27/21 Range/Units 21:39 06:08 06:53 RBC (3.65-5.03) M/mm3 MCV (79-97) fl MCH (28-32) pg Seg Neutrophils % (40.0-70.0) % Sodium 135 L (137-145) mmol/L Chloride 97.2 L (98-107) mmol/L BUN 32 H (7-17) mg/dL Glucose 173 H (65-100) mg/dL POC Glucose 132 H 137 H (70-105) mg/dL Total Protein 6.2 L (6.3-8.2) g/dL Albumin 2.7 L (3.9-5) g/dL 10/27/21 10/27/21 Range/Units 06:53 11:49 RBC 5.31 H (3.65-5.03) M/mm3 MCV 72 L (79-97) fl MCH 23 L (28-32) pg Seg Neutrophils % 74.8 H (40.0-70.0) % Sodium (137-145) mmol/L Chloride (98-107) mmol/L BUN (7-17) mg/dL Glucose (65-100) mg/dL POC Glucose 148 H (70-105) mg/dL Total Protein (6.3-8.2) g/dL Albumin (3.9-5) g/dL HEART Score - HEART Score Troponin: Troponin T 0.365 ng/mL (0.00-0.029) H* 10/24/21 05:30
[2021-10-27] MEDS: REMDESIVIR 100 MG in SODIUM CHLORIDE 0.9% 250ML 250 ML IV SCH (14:24)
[2021-10-27] MEDS: SODIUM CHLORIDE 0.9% 50 ML IVPB IV SCH (14:24)
--- NOTE | 2021-10-27 15:04 | Progress Note ---
Assessment and Plan Acute hypoxemic respiratory failure on MVS Possible aspiration pneumonia NSTEMI Metabolic acidosis Hypokalemia DM II Urinary tract infection Seizures CHF History of meningioma Osteoarthritis Oropharyngeal dysphagia Adult failure to thrive Elevated serum transaminases - discharge planning ongoing concurrently - continue care as below otherwise; - advance diet per PSYCHIATRIC REGISTERED NURSE team - continue supplemental oxygen to keep O2 sats > 90% - continue bronchodilators (HUMA) with pulm hygiene per RT - prn analgesia per pain score - continue to avoid nephrotoxins, renally dose all medications - mobility protocols to prevent pressure ulcers - PT/OT as tolerated - Wound care per RN/WCT - continue accuchecks with glycemic control per SSI for target blood glucose < 180 mg/dL - home oxygen evaluation at discharge - GI & VTE prophylaxis - Flu & pneumovax per protocol - Pulmonary out patient follow up for PFTs and optimization of respiratory status - continue other care per attending / other consultants COVID SPECIFIC INTERVENTIONS - Remdesivir as per ID/Pulmonary developed protocols (Ordered) - systemic steroids for severe COVID-19 infection empirically (Dexamethasone X 10 days) - follow repeat COVID tests results - zinc and vitamin C supplementation - Monitor inflammatory markers per facility protocol - ferritin, Ddimer, CRP - therapeutic anticoagulation per system Protocol based on d-dimer and clinical considerations (prophylaxis dosing) - Continue contact and airborne isolation ... re-evaluate in am & prn Subjective Date of service: 10/27/21 Principal diagnosis: AHRF s/p MVS; Pneumonia; NSTEMI; DM II; UTI; Seizures; CHF; Adult FTT Interval history: Patient is seen today for: Acute hypoxemic respiratory failure; Pneumonia; NSTEMI; DM II; UTI; Seizures; CHF; Adult FTT Seen and examined at bedside; 24hour events reviewed; nursing and respiratory care staff consulted; no adverse overnight events reported to me; resting in bed; alert; getting cleaned; remains on enteral nutrition; off oxygen; no mnew issues respiratory-alvarez Objective Vital Signs - 12hr 10/27/21 10/27/21 10/27/21 04:00 06:08 06:48 Temperature 97.8 F Pulse Rate 72 61 Pulse Rate [ 68 From Monitor] Respiratory 22 16 Rate Blood Pressure 109/52 109/52 O2 Sat by Pulse 100 100 Oximetry 10/27/21 10/27/21 10/27/21 08:00 12:00 12:56 Temperature 99.1 F Pulse Rate 76 Pulse Rate [ From Monitor] Respiratory 18 Rate Blood Pressure 116/65 O2 Sat by Pulse 96 98 95 Oximetry Constitutional: no acute distress Eyes: non-icteric ENT: oropharynx moist Neck: supple, no lymphadenopathy, no JVD Effort: normal Ascultation: Bilateral: diminished breath sounds, rhonchi Percussion: Bilateral: not dull Cardiovascular: regular rate and rhythm Gastrointestinal: normoactive bowel sounds, soft, non-tender, non-distended (protuberant) Integumentary: normal Extremities: no cyanosis, pulses normal, no ischemia or petechiae Neurologic: non-focal exam (grossly), pupils equal and round, CN II-XII normal Psychiatric: mood appropriate, affect normal CBC and BMP: 10/27/21 06:53 10/27/21 06:53 ABG, PT/INR, D-dimer: ABG ABG pH 7.445 pH Units (7.350-7.450) 10/24/21 Unknown ABG pCO2 32.0 mm Hg 10/24/21 Unknown ABG pO2 122.4 mm Hg (80.0-90.0) H 10/24/21 Unknown ABG O2 Saturation 98.5 % (95.0-99.0) 10/24/21 Unknown PT/INR, D-dimer PT 14.3 Sec. (12.2-14.9) 10/23/21 Unknown INR 1.00 (0.87-1.13) 10/23/21 Unknown Abnormal lab findings: Abnormal Labs 10/23/21 10/23/21 10/23/21 13:35 14:27 17:00 RBC 5.20 H MCV 73 L MCH 22 L Lymph % (Auto) 10.7 L Lymph # (Auto) 1.1 L Seg Neutrophils % 84.6 H Seg Neutrophils # 8.8 H APTT ABG pH 7.339 L ABG pO2 288.6 H ABG O2 Saturation 99.5 H ABG Base Excess -4.9 L ABG Hemoglobin 11.7 L Sodium Potassium Chloride Carbon Dioxide BUN Glucose POC Glucose 145 H Magnesium AST ALT Troponin T C-Reactive Protein Total Protein Albumin Cholesterol LDL Cholesterol Direct HDL Cholesterol Free T4 Urine WBC (Auto) Coronavirus (PCR) 10/23/21 10/23/21 10/23/21 22:38 23:50 Unknown RBC MCV MCH Lymph % (Auto) Lymph # (Auto) Seg Neutrophils % Seg Neutrophils # APTT ABG pH ABG pO2 ABG O2 Saturation ABG Base Excess ABG Hemoglobin Sodium Potassium Chloride Carbon Dioxide BUN Glucose POC Glucose 176 H Magnesium AST ALT Troponin T 0.321 H* D C-Reactive Protein Total Protein Albumin Cholesterol LDL Cholesterol Direct HDL Cholesterol Free T4 Urine WBC (Auto) 45.0 H Coronavirus (PCR) 10/23/21 10/23/21 10/23/21 Unknown Unknown Unknown RBC MCV MCH Lymph % (Auto) Lymph # (Auto) Seg Neutrophils % Seg Neutrophils # APTT 22.0 L ABG pH ABG pO2 ABG O2 Saturation ABG Base Excess ABG Hemoglobin Sodium Potassium 2.8 L* Chloride 110.1 H Carbon Dioxide 18 L BUN 24 H Glucose 202 H POC Glucose Magnesium 1.60 L AST 100 H ALT 65 H Troponin T 0.082 H C-Reactive Protein Total Protein 5.9 L Albumin 2.8 L Cholesterol 202 H LDL Cholesterol Direct 139 H HDL Cholesterol 36 L Free T4 1.81 H Urine WBC (Auto) Coronavirus (PCR) 10/24/21 10/24/21 10/24/21 05:30 05:30 05:30 RBC 5.27 H MCV 72 L MCH 22 L Lymph % (Auto) Lymph # (Auto) 1.0 L Seg Neutrophils % 79.8 H Seg Neutrophils # APTT ABG pH ABG pO2 ABG O2 Saturation ABG Base Excess ABG Hemoglobin Sodium Potassium Chloride Carbon Dioxide BUN 24 H Glucose POC Glucose Magnesium AST ALT Troponin T 0.365 H* C-Reactive Protein Total Protein Albumin Cholesterol LDL Cholesterol Direct HDL Cholesterol Free T4 Urine WBC (Auto) Coronavirus (PCR) 10/24/21 10/24/21 10/24/21 08:20 09:35 16:11 RBC MCV MCH Lymph % (Auto) Lymph # (Auto) Seg Neutrophils % Seg Neutrophils # APTT ABG pH 7.500 H ABG pO2 126.0 H ABG O2 Saturation ABG Base Excess ABG Hemoglobin Sodium Potassium Chloride Carbon Dioxide BUN Glucose POC Glucose Magnesium AST ALT Troponin T C-Reactive Protein 7.10 H Total Protein Albumin Cholesterol LDL Cholesterol Direct HDL Cholesterol Free T4 Urine WBC (Auto) Coronavirus (PCR) Positive A 10/24/21 10/25/21 10/25/21 Unknown 04:29 04:29 RBC 5.58 H MCV 71 L MCH 22 L Lymph % (Auto) Lymph # (Auto) Seg Neutrophils % Seg Neutrophils # APTT ABG pH ABG pO2 122.4 H ABG O2 Saturation ABG Base Excess ABG Hemoglobin Sodium Potassium 3.2 L Chloride Carbon Dioxide BUN 21 H Glucose 119 H POC Glucose Magnesium AST ALT Troponin T C-Reactive Protein Total Protein Albumin Cholesterol LDL Cholesterol Direct HDL Cholesterol Free T4 Urine WBC (Auto) Coronavirus (PCR) 10/25/21 10/25/21 10/25/21 06:08 16:19 16:22 RBC MCV MCH Lymph % (Auto) Lymph # (Auto) Seg Neutrophils % Seg Neutrophils # APTT ABG pH ABG pO2 ABG O2 Saturation ABG Base Excess ABG Hemoglobin Sodium Potassium Chloride Carbon Dioxide BUN 21 H Glucose 162 H POC Glucose 128 H 146 H Magnesium AST ALT Troponin T C-Reactive Protein Total Protein Albumin 2.8 L Cholesterol LDL Cholesterol Direct HDL Cholesterol Free T4 Urine WBC (Auto) Coronavirus (PCR) 10/25/21 10/26/21 10/26/21 21:17 05:54 11:37 RBC MCV MCH Lymph % (Auto) Lymph # (Auto) Seg Neutrophils % Seg Neutrophils # APTT ABG pH ABG pO2 ABG O2 Saturation ABG Base Excess ABG Hemoglobin Sodium Potassium Chloride Carbon Dioxide BUN Glucose POC Glucose 115 H 141 H 125 H Magnesium AST ALT Troponin T C-Reactive Protein Total Protein Albumin Cholesterol LDL Cholesterol Direct HDL Cholesterol Free T4 Urine WBC (Auto) Coronavirus (PCR) 10/26/21 10/26/21 10/26/21 14:28 14:28 17:15 RBC 5.68 H MCV 72 L MCH 22 L Lymph % (Auto) Lymph # (Auto) Seg Neutrophils % Seg Neutrophils # APTT ABG pH ABG pO2 ABG O2 Saturation ABG Base Excess ABG Hemoglobin Sodium 135 L Potassium Chloride 96.6 L Carbon Dioxide BUN 25 H Glucose 131 H POC Glucose 123 H Magnesium AST ALT Troponin T C-Reactive Protein Total Protein Albumin 3.1 L Cholesterol LDL Cholesterol Direct HDL Cholesterol Free T4 Urine WBC (Auto) Coronavirus (PCR) 10/26/21 10/27/21 10/27/21 21:39 06:08 06:53 RBC MCV MCH Lymph % (Auto) Lymph # (Auto) Seg Neutrophils % Seg Neutrophils # APTT ABG pH ABG pO2 ABG O2 Saturation ABG Base Excess ABG Hemoglobin Sodium 135 L Potassium Chloride 97.2 L Carbon Dioxide BUN 32 H Glucose 173 H POC Glucose 132 H 137 H Magnesium AST ALT Troponin T C-Reactive Protein Total Protein 6.2 L Albumin 2.7 L Cholesterol LDL Cholesterol Direct HDL Cholesterol Free T4 Urine WBC (Auto) Coronavirus (PCR) 10/27/21 10/27/21 06:53 11:49 RBC 5.31 H MCV 72 L MCH 23 L Lymph % (Auto) Lymph # (Auto) Seg Neutrophils % 74.8 H Seg Neutrophils # APTT ABG pH ABG pO2 ABG O2 Saturation ABG Base Excess ABG Hemoglobin Sodium Potassium Chloride Carbon Dioxide BUN Glucose POC Glucose 148 H Magnesium AST ALT Troponin T C-Reactive Protein Total Protein Albumin Cholesterol LDL Cholesterol Direct HDL Cholesterol Free T4 Urine WBC (Auto) Coronavirus (PCR) Allied health notes reviewed: nursing
[2021-10-27] MEDS: GABAPENTIN 300 MG CAP PO SCH (19:48)
[2021-10-27] MEDS: PRAVASTATIN 40 MG TAB PO SCH (21:10)
[2021-10-28] MEDS: hydrALAZINE 25 MG TAB PO SCH ×2 (05:19→22:41)
[2021-10-28] MEDS: INSULIN REGULAR, HUMAN 100 UNITS/1 ML SUB-Q SCH (06:16)
[2021-10-28 08:22] LABS: Alanine Aminotransferase 23 units/L (7-56); Albumin 2.8 g/dL (3.9-5); Blood Urea Nitrogen 33 mg/dL (7-17); Calcium 8.9 mg/dL (8.4-10.2); Hemolysis Index 5
[2021-10-28 08:35] LABS: BUN/Creatinine Ratio 47
--- NOTE | 2021-10-28 08:41 | Progress Note ---
Assessment and Plan Assessment and plan: --Acute hypoxemic respiratory failure extubated Was extubated currently on room air Continue supportive care --Aspiration Pneumonia Continue antibiotics Passed speech eval today --COVID positive IV dexamethasone and IV remdesivir 3/ OT evaluation currently saturating well on room air --NSTEMI (non-ST elevated myocardial infarction) --Acute respiratory failure: Frail elderly 89-year-old who is admitted following an out of hospital cardiopulmonary arrest. She was found to have respiratory failure and is Covid positive. There was initially concern regarding VT but we were unable to find any documentation. Amiodarone has been stopped. She has been successfully weaned off the ventilator. --Troponin elevation: Due to cardiopulmonary event as noted above. Echocardiogram shows moderate to severe concentric left ventricle hypertrophy, left ventricular systolic function within normal limit with ejection fraction 55 %. We will continue conservative cardiac management. --Atrial Fibrilation No A. fib at this point In sinus rhythm with first-degree AV block --CHF (congestive heart failure) EF is near normal No diuretics --VTACH There was initially concern regarding VT but we were unable to find any documentation. Amiodarone has been stopped. She has been successfully weaned off the ventilator. --UTI (urinary tract infection) Resolved --Seizure disorder On seizure medication --Severe protein calorie malnutrition --h/o Meningioma - Patient has a history - CT head reviewed - Continue Keppra therapy - seizure precautions - supportive care --Type 2 Diabetes - SSI Q6hrs - Avoid hypoglycemia --GI/DVT prophylaxis - Continue PPI- Prevacid - Continue AC- Heparin SubQ - SCDs bilateral lower extremities while in bed Subjective Date of service: 10/28/21 Principal diagnosis: AHRF s/p MVS; Pneumonia; NSTEMI; DM II; UTI; Seizures; CHF; Adult FTT Interval history: This is a 89-year-old female with past medical history of CHF, HTN, DM, Seizure disorder, meningioma, OA, and malnutrition admitted for acute hypoxemic respiratory failure secondary to aspiration pneumonia requiring ventilatory support. Hospital Course to Date: 10/24: Intubated and sedated, RASS-5 on versed gtt, on low vent setting. Will do a sedation vacation to assess patient's mental status. Patient was on amio gtt for VTACH/Afib, now on hold due to bradycardia. Patient is SR on the monitor this am, HR 60-70s, not on any pressors. Pending cardiology consult. Patient is afebrile, wbcs normal, with no report of any diarrhea/loose stools, will hold flagyl for now. Continue IV Levaquin for now, COVID PCR result is pending. 10/25: S/p extubation currently stable on RA. Patient is nonverval but awake, per family this is her baseline. Speech swallo eval ordered, continue TF for now. IV decadron and IV remdesiver initiated per CCM. Patient is stable for transfer to the floor. October S/p extubation Patient stable on room air Patient on Decadron and IV remdesivir October 27, 2021 S/p extubation Patient stable on room air Patient on Decadron and IV remdesivir Swallow evaluation--complete Discontinue NG tube Start pured diet More alert and states she is in the hospital Tried calling son at phone number [phone]-mailbox was full, left the floor number [phone] to contact me 10/28/21; more alert and awake Patient is currently on room air, COVID-19, continue steroid and remdesivir per protocol Full CODE STATUS, DC planning per case management ,possible hospice History Interval history: I have seen and examined the patient at the bedside Patient's chart and medications reviewed Patient status post cardiac arrest, respiratory failure Unresponsive, not in acute distress Vital signs noted Hospitalist Physical - Constitutional Vitals: Temp Pulse Resp BP Pulse Ox 98.3 F 54 L 22 113/83 100 10/28/21 03:41 10/28/21 05:19 10/28/21 04:00 10/28/21 03:41 10/28/21 04:00 General appearance: Present: no acute distress, well-nourished - EENT Eyes: Present: PERRL, EOM intact - Neck Neck: Present: supple, normal ROM - Respiratory Respiratory effort: normal Respiratory: bilateral: diminished, negative: rales - Cardiovascular Rhythm: regular Heart Sounds: Present: S1 & S2 - Extremities Extremities: no ischemia, No edema - Abdominal General gastrointestinal: soft, non-tender, non-distended, normal bowel sounds - Integumentary Integumentary: Present: clear, warm - Psychiatric Psychiatric: other (Minimally communicative) - Neurologic Neurologic: moves all extremities HEART Score - HEART Score Troponin: Troponin T 0.365 ng/mL (0.00-0.029) H* 10/24/21 05:30 Results - Labs CBC & Chem 7: 10/27/21 06:53 10/28/21 07:10 Labs: Laboratory Last Values WBC 7.3 K/mm3 (4.5-11.0) 10/27/21 06:53 RBC 5.31 M/mm3 (3.65-5.03) H 10/27/21 06:53 Hgb 12.1 gm/dl (10.1-14.3) 10/27/21 06:53 Hct 38.1 % (30.3-42.9) 10/27/21 06:53 MCV 72 fl (79-97) L 10/27/21 06:53 MCH 23 pg (28-32) L 10/27/21 06:53 MCHC 32 % (30-34) 10/27/21 06:53 RDW 14.4 % (13.2-15.2) 10/27/21 06:53 Plt Count 310 K/mm3 (140-440) 10/27/21 06:53 Lymph % (Auto) 18.6 % (13.4-35.0) 10/27/21 06:53 [place] % (Auto) 6.3 % (0.0-7.3) 10/27/21 06:53 Eos % (Auto) 0.1 % (0.0-4.3) 10/27/21 06:53 Baso % (Auto) 0.2 % (0.0-1.8) 10/27/21 06:53 Lymph # (Auto) 1.4 K/mm3 (1.2-5.4) 10/27/21 06:53 [place] # (Auto) 0.5 K/mm3 (0.0-0.8) 10/27/21 06:53 Eos # (Auto) 0.0 K/mm3 (0.0-0.4) 10/27/21 06:53 Baso # (Auto) 0.0 K/mm3 (0.0-0.1) 10/27/21 06:53 Seg Neutrophils % 74.8 % (40.0-70.0) H 10/27/21 06:53 Seg Neutrophils # 5.5 K/mm3 (1.8-7.7) 10/27/21 06:53 PT 14.3 Sec. (12.2-14.9) 10/23/21 Unknown INR 1.00 (0.87-1.13) 10/23/21 Unknown APTT 22.0 Sec. (24.2-36.6) L 10/23/21 Unknown ABG pH 7.445 pH Units (7.350-7.450) 10/24/21 Unknown ABG pCO2 32.0 mm Hg 10/24/21 Unknown ABG pO2 122.4 mm Hg (80.0-90.0) H 10/24/21 Unknown ABG HCO3 21.5 mmol/L (20.0-26.0) 10/24/21 Unknown ABG O2 Saturation 98.5 % (95.0-99.0) 10/24/21 Unknown ABG O2 Content 17.5 (0.0-44) 10/24/21 Unknown ABG Base Excess -1.8 mmol/L (-2.0-3.0) 10/24/21 Unknown ABG Hemoglobin 12.7 gm/dl (12.0-16.0) 10/24/21 Unknown ABG Carboxyhemoglobin 1.1 % (0.0-5.0) 10/24/21 Unknown ABG Methemoglobin 0.5 % (0.0-1.5) 10/24/21 Unknown VBG pH Cancelled 10/23/21 13:35 Oxyhemoglobin 96.9 % (95.0-99.0) 10/24/21 Unknown FiO2 30 % 10/24/21 Unknown Sodium 134 mmol/L (137-145) L 10/28/21 07:10 Potassium 4.3 mmol/L (3.6-5.0) 10/28/21 07:10 Chloride 93.8 mmol/L (98-107) L 10/28/21 07:10 Carbon Dioxide 27 mmol/L (22-30) 10/28/21 07:10 Anion Gap 18 mmol/L 10/28/21 07:10 BUN 33 mg/dL (7-17) H 10/28/21 07:10 Creatinine 0.7 mg/dL (0.6-1.2) 10/28/21 07:10 Estimated GFR > 60 ml/min 02/07/22 07:10 BUN/Creatinine Ratio 47 % 10/28/21 07:10 Glucose 124 mg/dL (65-100) H 10/28/21 07:10 POC Glucose 144 mg/dL (70-105) H 10/28/21 06:14 Lactic Acid 1.70 mmol/L (0.7-2.0) 10/23/21 Unknown Calcium 8.9 mg/dL (8.4-10.2) 10/28/21 07:10 Phosphorus 2.80 mg/dL (2.5-4.5) 10/25/21 04:29 Magnesium 2.30 mg/dL (1.7-2.3) 10/25/21 04:29 Total Bilirubin 0.30 mg/dL (0.1-1.2) 10/28/21 07:10 AST 28 units/L (5-40) 10/28/21 07:10 ALT 23 units/L (7-56) 10/28/21 07:10 Alkaline Phosphatase 75 units/L (35-129) 10/28/21 07:10 Ammonia 49.0 umol/L (25-60) 10/23/21 Unknown Troponin T 0.365 ng/mL (0.00-0.029) H* 10/24/21 05:30 C-Reactive Protein 7.10 mg/dL (0.00-1.30) H 10/24/21 16:11 Total Protein 6.2 g/dL (6.3-8.2) L 10/28/21 07:10 Albumin 2.8 g/dL (3.9-5) L 10/28/21 07:10 Albumin/Globulin Ratio 0.8 % 10/28/21 07:10 Triglycerides 90 mg/dL (2-149) 10/23/21 Unknown Cholesterol 202 mg/dL (50-199) H 10/23/21 Unknown LDL Cholesterol Direct 139 mg/dL (50-130) H 10/23/21 Unknown HDL Cholesterol 36 mg/dL (40-59) L 10/23/21 Unknown Cholesterol/HDL Ratio 5.61 % 10/23/21 Unknown Procalcitonin 3.57 ng/mL (<0.15) 10/24/21 16:11 TSH 0.771 mlU/mL (0.270-4.200) 10/23/21 Unknown Free T4 1.81 ng/dL (0.76-1.46) H 10/23/21 Unknown Urine Color Yellow (Yellow) 10/23/21 Unknown Urine Turbidity Slightly-cloudy (Clear) 10/23/21 Unknown Urine pH 6.0 (5.0-7.0) 10/23/21 Unknown Ur Specific [place] 1.023 (1.003-1.030) 10/23/21 Unknown Urine Protein 100 mg/dl mg/dL (Negative) 10/23/21 Unknown Urine Glucose (UA) Neg mg/dL (Negative) 10/23/21 Unknown Urine Ketones Tr mg/dL (Negative) 10/23/21 Unknown Urine Blood Mod (Negative) 10/23/21 Unknown Urine Nitrite Neg (Negative) 10/23/21 Unknown Urine Bilirubin Neg (Negative) 10/23/21 Unknown Urine Urobilinogen 4.0 mg/dL (<2.0) 10/23/21 Unknown Ur Leukocyte Esterase Lg (Negative) 10/23/21 Unknown Urine WBC (Auto) 45.0 /HPF (0.0-6.0) H 10/23/21 Unknown Urine RBC (Auto) 30.0 /HPF (0.0-6.0) 10/23/21 Unknown U Epithel Cells (Auto) < 1.0 /HPF (0-13.0) 10/23/21 Unknown Urine Bacteria (Auto) 1+ /HPF (Negative) 10/23/21 Unknown Urine Mucus Few /HPF 10/23/21 Unknown Urine Yeast (Budding) 1+ /HPF 10/23/21 Unknown Coronavirus (PCR) Positive (Negative) A 10/24/21 08:20 Gonzalez/IV: Voiding Method External Female Catheter Active Medications - Current Medications Current Medications: Generic Name Dose Route Start Last Admin Trade Name Freq PRN Reason Stop Dose Admin Acetaminophen 650 mg 10/23/21 16:00 Acetaminophen 650 Mg Rect Supp MA Q6H PRN Pain MILD(1-3)/Fever >100.5/MARTINEZ Acetaminophen 650 mg 10/23/21 17:30 Acetaminophen 325 Mg Tab PO Q6H PRN Pain, Mild (1-3) Albuterol 2.5 mg 10/23/21 17:00 Albuterol 2.5 Mg/3 Ml Nebu IH Q3HRT PRN Shortness Of Breath Lipase/Protease/Amylase 1 each 10/24/21 10:30 Lipase 10,500/Protease 25,000/Amylase 43,750 (Units) Dr Stone FEEDTUBE PRN PRN For Clogged Feeding Tube Ascorbic Acid 500 mg 10/25/21 16:00 10/27/21 21:11 Ascorbic Acid 500 Mg Tab PO 500 mg BID JANET Administration Aspirin 81 mg 10/24/21 10:00 10/27/21 09:45 Aspirin 81 Mg Tab Chew PO 81 mg QDAY JANET Administration Dexamethasone 6 mg 10/25/21 16:00 10/27/21 09:46 Dexamethasone 4 Mg/Ml Vial IV 11/03/21 10:01 6 mg DAILY JANET Administration Dextrose 0 ml 10/23/21 17:00 Dextrose 10% *Hypoglycemia IV PRN PRN Hypoglycemia Furosemide 20 mg 10/24/21 10:00 10/27/21 09:45 Furosemide 20 Mg Tab PO 20 mg QDAY JANET Administration Gabapentin 300 mg 10/23/21 18:00 10/27/21 19:48 Gabapentin 300 Mg Cap PO 300 mg QPM JANET Administration Heparin Sodium (Porcine) 5,000 unit 10/23/21 22:00 10/27/21 21:11 Heparin 5,000 Unit/1 Ml Vial SUB-Q 5,000 unit Q12HR JANET Administration Hydralazine HCl 25 mg 10/23/21 22:00 10/28/21 05:19 Hydralazine 25 Mg Tab PO Not Given Q8HR JANET Hydromorphone HCl 0.5 mg 10/23/21 16:00 Hydromorphone 1 Mg/1 Ml Inj IV Q23H PRN Pain , Severe (7-10) Remdesivir 100 mg/ Sodium 250 mls @ 500 mls/hr 10/26/21 14:00 10/27/21 14:24 Chloride IV 10/29/21 14:29 500 mls/hr Q24HR@1400 JANET Administration Insulin Human Regular 0 units 10/23/21 16:00 10/28/21 06:16 Insulin Regular, Human 100 Units/1 Ml SUB-Q Not Given Q6H JANET Protocol Lansoprazole 30 mg 10/25/21 10:00 10/27/21 09:45 Lansoprazole 30 Mg Solutab FEEDTUBE 30 mg QDAY JANET Administration Levetiracetam 500 mg 10/24/21 22:00 10/27/21 21:10 Levetiracetam 500 Mg/5 Ml Oral Liqd PO 500 mg BID JANET Administration Metolazone 2.5 mg 10/23/21 22:00 10/27/21 21:11 Metolazone 2.5 Mg Tab PO 2.5 mg BID JANET Administration Multivit/Ca Carb/B Cmplx/FA/Prenat 1 cap 10/24/21 10:00 10/27/21 09:45 Folic Acid/Vit B Comp W-C 1 Mg (Renal Caps) PO 1 cap QDAY JANET Administration Oxybutynin Chloride 5 mg 10/23/21 22:00 10/27/21 21:10 Oxybutynin 5 Mg Tab PO 5 mg BID JANET Administration Oxycodone/Acetaminophen 1 tab 10/23/21 15:30 Oxycodone /Acetaminophen 5-325mg Tab PO Q16H PRN Pain, Moderate (4-6) Pravastatin Sodium 40 mg 10/23/21 22:00 10/27/21 21:10 Pravastatin 40 Mg Tab PO 40 mg QHS JANET Administration Simple Syrup 15 ml 10/24/21 10:30 Simple Syrup 15 Ml FEEDTUBE PRN PRN Hypoglycemia Simple Syrup 30 ml 10/24/21 10:30 Simple Syrup 15 Ml FEEDTUBE PRN PRN Hypoglycemia Sodium Bicarbonate 325 mg 10/24/21 10:30 Sodium Bicarbonate 325 Mg Tab FEEDTUBE PRN PRN For Clogged Feeding Tube Sodium Chloride 10 ml 10/23/21 22:00 10/27/21 21:11 Sodium Chloride 0.9% 10 Ml Flush Syringe IV 10 ml BID JANET Administration Sodium Chloride 10 ml 10/23/21 16:00 Sodium Chloride 0.9% 10 Ml Flush Syringe IV PRN PRN LINE FLUSH Sodium Chloride 10 ml 10/24/21 12:00 Sodium Chloride 0.9% 50 Ml Ivpb IV PRN PRN Line flush Sodium Chloride 50 ml 10/26/21 14:00 10/27/21 14:24 Sodium Chloride 0.9% 50 Ml Ivpb IV 10/30/21 14:01 50 ml Q24HR@1400 JANET Administration Tramadol HCl 50 mg 10/23/21 18:00 Tramadol 50 Mg Tab PO Q6H PRN Pain, Moderate (4-6) Zinc Sulfate 220 mg 10/25/21 16:00 10/27/21 21:12 Zinc Sulfate 220 Mg Cap PO 220 mg BID JANET Administration Nutrition/Malnutrition Assess - Dietary Evaluation Nutrition/Malnutrition Findings: Nutrition Notes Start: 10/24/21 10:42 Freq: Status: Active Protocol: Document 10/25/21 15:00 NHALL (Rec: 10/25/21 15:12 NHALL [email or web address]) Nutrition Notes 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 Pt remains on vent support. NGT was clogged last pm. New NGT inserted this am . RN reports TF now infusing at goal rate and pt tolerating TF. Percent of energy/protein needs met: 100% energy and pro Burn Absent Trauma Absent #2 Nutrition Diagnosis Underweight Etiology advanced age, multiple co- morbidities As Evidenced by Signs and Symptoms BMI 17.2 #1 Nutrition Diagnosis Inadequate oral intake Etiology mech ventilation As Evidenced by Signs and Symptoms pt NPO Is patient on ventilator? Yes Is Patient Ambulatory and/or Out of Bed No REE-([place]-confined to bed) 903.864 Kcal/Kg value to use for calculation 30 Approximate Energy Requirements Using 1200 kcal/Kg Calculation Used for Recommendations Kcal/kg Additional Notes Pro needs 1.2-2g/k-80g/ day Fluid needs 1ml/kcal Nutrition Intervention Nutrition Support: Increase TF rate to 45ml/hr ( to provide additional kcal for wt gain). Provide 50ml water flush q4h. Kcal 1,080 Protein (gm) 68 Carbohydrates (gm) 140 Fat (gm) 28 Fluid (mL) 906 Fiber (gm) 0 Goal #1 TF tolerance Goal #2 TF to meet 100% energy and pro needs Goal #3 Wt maintenance and/or gain Anticipated Discharge Needs: Continue EN support if necessary Follow-Up By: 10/28/21 Additional Comments F/U: TF rate increase/ tolerance, vent status
--- NOTE | 2021-10-28 11:06 | Progress Note ---
Assessment and Plan - Patient Problems (1) Cardiopulmonary arrest Current Visit: Yes Status: Acute Plan to address problem: Frail elderly 89-year-old who is admitted following respiratory failure due to acute COVID-19 pneumonia. No acute cardiac complaints. Echocardiogram shows moderate to severe concentric left ventricle hypertrophy, left ventricular systolic function within normal limit with ejection fraction 55 %. We will continue conservative cardiac management and follow-up. Subjective Date of service: 10/28/21 Principal diagnosis: Covid pneumonia, respiratory arrest Interval history: No new cardiac complaints, no cardiac events reported. On playground monitor, there is a sinus rhythm of 59 with first-degree AV block. Objective Vital Signs Temp Pulse Pulse Resp BP Pulse Ox 10/28/21 05:19 54 L 10/28/21 04:00 68 22 100 10/28/21 03:41 98.3 F 60 18 113/83 96 10/28/21 00:00 68 22 100 10/27/21 21:10 65 123/60 10/27/21 20:00 68 22 100 10/27/21 16:00 18 95 10/27/21 15:07 98.8 F 72 18 142/68 95 10/27/21 12:56 99.1 F 76 18 116/65 95 10/27/21 12:00 98 - Physical Examination Narrative exam: Full physical exam is deferred due to acute Covid infection. General: Cachectic, Other (Comfortable, no acute distress) HEENT: Positive: Other (Pupils fixed) Neck: Positive: neck supple - Labs and Meds Cardiac Enzymes 10/28/21 Range/Units 07:10 AST 28 (5-40) units/L Comprehensive Metabolic Panel 10/28/21 Range/Units 07:10 Sodium 134 L (137-145) mmol/L Potassium 4.3 (3.6-5.0) mmol/L Chloride 93.8 L (98-107) mmol/L Carbon Dioxide 27 (22-30) mmol/L BUN 33 H (7-17) mg/dL Creatinine 0.7 (0.6-1.2) mg/dL Glucose 124 H (65-100) mg/dL Calcium 8.9 (8.4-10.2) mg/dL AST 28 (5-40) units/L ALT 23 (7-56) units/L Alkaline Phosphatase 75 (35-129) units/L Total Protein 6.2 L (6.3-8.2) g/dL Albumin 2.8 L (3.9-5) g/dL - Allied health notes Allied health notes reviewed: nursing
--- NOTE | 2021-10-28 19:46 | Progress Note ---
Assessment and Plan 89 YO Female with HTN, Malnutrition, DM, Seizure Disorder, OA, CHF, Meningioma presents to ED for evaluation. Patient is intubated and on ventilatory support at the time my evaluation and is unable to provide history. Patient history astrid en from EMS staff, ED staff, as well as patient family was made available by telephone for interview. As per family the patient was receiving care at home and undergoing a diaper change when she subsequently became unresponsive. EMS was notified and upon arrival the patient was found to be in distress with agonal respirations and deemed unable to protect her airway and was subsequently intubated and transported to [facility] for further care and evaluation of the aforementioned symptoms. The patient was seen and evaluated in the emergency department. All lab and imaging studies reviewed. The patient was found to have acute hypoxemic respiratory failure and placed on ventilatory support. Chest x-ray revealed pneumonia suspected secondary to aspiration, metabolic acidosis, urinary tract infection, systemic inflammatory response syndrome, as well as type II NSTEMI. Patient admitted to ICU due to increased risk of worsening symptoms. Patient initiated on pneumonia protocol. No further h istory is obtainable. According to the chart, patient has no history of smoking, alcohol or drug a buse. . Patient has surgical history of total knee replacement and Hysterectomy. Patients Erickson virus PCR is positive. Patient eventually extubated and transfer to medical floor. Patient weak, open her eyes but not responding to the questions. Patient is on room air. O2 saturation 97%. No acute respiratory distress. Patient afebrile. No leukocytosis. Blood pressure 132/60 , Pulse 62 , respirations 18 Chest xray done 10/24/21 reported clear lungs. Patient is on decodron, S/C Heparin, Prevacid and albuterol inhaler prn for shortness of breath. - Patient Problems (1) Acute hypoxemic respiratory failure Current Visit: Yes Status: Acute Plan to address problem: Patient intubated and extubated. Patient presently on room air. Continue decadron. Continue S/C Heparin Continue Prevacid. Albuterol inhaler prn for shortness of breath. (2) Aspiration pneumonia Current Visit: Yes Status: Acute (3) Altered mental status Current Visit: Yes Status: Acute Plan to address problem: Management as per primary care. (4) CHF (congestive heart failure) Current Visit: Yes Status: Acute Qualifiers: Heart failure chronicity: chronic Plan to address problem: Management as per cardiology. (5) A-fib Current Visit: Yes Status: Acute Plan to address problem: management as per cardiology. (6) Uncontrolled hypertension Current Visit: No Status: Acute Plan to address problem: Management as per primary care and cardiology. (7) Diabetes 1.5, managed as type 2 Current Visit: No Status: Chronic Plan to address problem: Management as per primary care. Subjective Date of service: 10/28/21 Principal diagnosis: Covid pneumonia, respiratory arrest Interval history: 89 YO Female with HTN, Malnutrition, DM, Seizure Disorder, OA, CHF, Meningioma presents to ED for evaluation. Patient is intubated and on ventilatory support at the time my evaluation and is unable to provide history. Patient history taken from EMS staff, ED staff, as well as patient family was made available by telephone for interview. As per family the patient was receiving care at home and undergoing a diaper change when she subsequently became unresponsive. EMS was notified and upon arrival the patient was found to be in distress with agona l respirations and deemed unable to protect her airway and was subsequently intubated and transported to [facility] for further care and evaluation of the aforementioned symptoms. The patient was seen and evaluated in the emergency department. All lab and imaging studies reviewed. The patient was found to have acute hypoxemic respiratory failure and placed on ventilatory support. Chest x-ray revealed pneumonia suspected secondary to aspiration, metabolic acidosis, urinary tract infection, systemic inflammatory response syndrome, as well as type II NSTEMI. Patient admitted to ICU due to increased risk of worsening symptoms. Patient initiated on pneumonia protocol. No further history is obtainable. According to the chart, patient has no history of smoking, alcohol or drug abuse. . Patient has surgical history of total knee replacement and Hysterectomy. Patients Erickson virus PCR is positive. Patient eventually extubated and transfer to medical floor. Patient weak, open her eyes but not responding to the questions. Patient is on room air. O2 saturation 97%. No acute respiratory distress. Patient afebrile. No leukocytosis. Blood pressure 132/60 , Pulse 62 , respirations 18 Chest xray done 10/24/21 reported clear lungs. Patient is on decodron, S/C Heparin, Prevacid and albuterol inhaler prn for shortness of breath. Objective Vital Signs - 12hr 10/28/21 10/28/21 11:15 17:41 Temperature 98.1 F 97.4 F L Pulse Rate 62 65 Respiratory 18 18 Rate Blood Pressure 132/60 154/74 O2 Sat by Pulse 97 96 Oximetry Constitutional: no acute distress, asleep Eyes: non-icteric ENT: oropharynx moist Neck: supple, no lymphadenopathy, no JVD Effort: normal Ascultation: Bilateral: diminished breath sounds, rhonchi Percussion: Bilateral: not dull Cardiovascular: irregular rhythm Gastrointestinal: normoactive bowel sounds, soft, non-tender, non-distended (protuberant) Integumentary: normal Extremities: no cyanosis, pulses normal, no ischemia or petechiae Neurologic: non-focal exam (grossly), pupils equal and round, CN II-XII normal Psychiatric: other (Patient sleepy, Open eyes on stimulation but not answering questions.) CBC and BMP: 10/27/21 06:53 10/28/21 07:10 ABG, PT/INR, D-dimer: ABG ABG pH 7.445 pH Units (7.350-7.450) 10/24/21 Unknown ABG pCO2 32.0 mm Hg 10/24/21 Unknown ABG pO2 122.4 mm Hg (80.0-90.0) H 10/24/21 Unknown ABG O2 Saturation 98.5 % (95.0-99.0) 10/24/21 Unknown PT/INR, D-dimer PT 14.3 Sec. (12.2-14.9) 10/23/21 Unknown INR 1.00 (0.87-1.13) 10/23/21 Unknown Abnormal lab findings: Abnormal Labs 10/23/21 10/23/21 10/23/21 13:35 14:27 17:00 RBC 5.20 H MCV 73 L MCH 22 L Lymph % (Auto) 10.7 L Lymph # (Auto) 1.1 L Seg Neutrophils % 84.6 H Seg Neutrophils # 8.8 H APTT ABG pH 7.339 L ABG pO2 288.6 H ABG O2 Saturation 99.5 H ABG Base Excess -4.9 L ABG Hemoglobin 11.7 L Sodium Potassium Chloride Carbon Dioxide BUN Glucose POC Glucose 145 H Magnesium AST ALT Troponin T C-Reactive Protein Total Protein Albumin Cholesterol LDL Cholesterol Direct HDL Cholesterol Free T4 Urine WBC (Auto) Coronavirus (PCR) 10/23/21 10/23/21 10/23/21 22:38 23:50 Unknown RBC MCV MCH Lymph % (Auto) Lymph # (Auto) Seg Neutrophils % Seg Neutrophils # APTT ABG pH ABG pO2 ABG O2 Saturation ABG Base Excess ABG Hemoglobin Sodium Potassium Chloride Carbon Dioxide BUN Glucose POC Glucose 176 H Magnesium AST ALT Troponin T 0.321 H* D C-Reactive Protein Total Protein Albumin Cholesterol LDL Cholesterol Direct HDL Cholesterol Free T4 Urine WBC (Auto) 45.0 H Coronavirus (PCR) 10/23/21 10/23/21 10/23/21 Unknown Unknown Unknown RBC MCV MCH Lymph % (Auto) Lymph # (Auto) Seg Neutrophils % Seg Neutrophils # APTT 22.0 L ABG pH ABG pO2 ABG O2 Saturation ABG Base Excess ABG Hemoglobin Sodium Potassium 2.8 L* Chloride 110.1 H Carbon Dioxide 18 L BUN 24 H Glucose 202 H POC Glucose Magnesium 1.60 L AST 100 H ALT 65 H Troponin T 0.082 H C-Reactive Protein Total Protein 5.9 L Albumin 2.8 L Cholesterol 202 H LDL Cholesterol Direct 139 H HDL Cholesterol 36 L Free T4 1.81 H Urine WBC (Auto) Coronavirus (PCR) 10/24/21 10/24/21 10/24/21 05:30 05:30 05:30 RBC 5.27 H MCV 72 L MCH 22 L Lymph % (Auto) Lymph # (Auto) 1.0 L Seg Neutrophils % 79.8 H Seg Neutrophils # APTT ABG pH ABG pO2 ABG O2 Saturation ABG Base Excess ABG Hemoglobin Sodium Potassium Chloride Carbon Dioxide BUN 24 H Glucose POC Glucose Magnesium AST ALT Troponin T 0.365 H* C-Reactive Protein Total Protein Albumin Cholesterol LDL Cholesterol Direct HDL Cholesterol Free T4 Urine WBC (Auto) Coronavirus (PCR) 10/24/21 10/24/21 10/24/21 08:20 09:35 16:11 RBC MCV MCH Lymph % (Auto) Lymph # (Auto) Seg Neutrophils % Seg Neutrophils # APTT ABG pH 7.500 H ABG pO2 126.0 H ABG O2 Saturation ABG Base Excess ABG Hemoglobin Sodium Potassium Chloride Carbon Dioxide BUN Glucose POC Glucose Magnesium AST ALT Troponin T C-Reactive Protein 7.10 H Total Protein Albumin Cholesterol LDL Cholesterol Direct HDL Cholesterol Free T4 Urine WBC (Auto) Coronavirus (PCR) Positive A 02/12/1010/25/21 10/25/21 Unknown 04:29 04:29 RBC 5.58 H MCV 71 L MCH 22 L Lymph % (Auto) Lymph # (Auto) Seg Neutrophils % Seg Neutrophils # APTT ABG pH ABG pO2 122.4 H ABG O2 Saturation ABG Base Excess ABG Hemoglobin Sodium Potassium 3.2 L Chloride Carbon Dioxide BUN 21 H Glucose 119 H POC Glucose Magnesium AST ALT Troponin T C-Reactive Protein Total Protein Albumin Cholesterol LDL Cholesterol Direct HDL Cholesterol Free T4 Urine WBC (Auto) Coronavirus (PCR) 10/25/21 10/25/21 10/25/21 06:08 16:19 16:22 RBC MCV MCH Lymph % (Auto) Lymph # (Auto) Seg Neutrophils % Seg Neutrophils # APTT ABG pH ABG pO2 ABG O2 Saturation ABG Base Excess ABG Hemoglobin Sodium Potassium Chloride Carbon Dioxide BUN 21 H Glucose 162 H POC Glucose 128 H 146 H Magnesium AST ALT Troponin T C-Reactive Protein Total Protein Albumin 2.8 L Cholesterol LDL Cholesterol Direct HDL Cholesterol Free T4 Urine WBC (Auto) Coronavirus (PCR) 10/25/21 10/26/21 10/26/21 21:17 05:54 11:37 RBC MCV MCH Lymph % (Auto) Lymph # (Auto) Seg Neutrophils % Seg Neutrophils # APTT ABG pH ABG pO2 ABG O2 Saturation ABG Base Excess ABG Hemoglobin Sodium Potassium Chloride Carbon Dioxide BUN Glucose POC Glucose 115 H 141 H 125 H Magnesium AST ALT Troponin T C-Reactive Protein Total Protein Albumin Cholesterol LDL Cholesterol Direct HDL Cholesterol Free T4 Urine WBC (Auto) Coronavirus (PCR) 10/26/21 10/26/21 10/26/21 14:28 14:28 17:15 RBC 5.68 H MCV 72 L MCH 22 L Lymph % (Auto) Lymph # (Auto) Seg Neutrophils % Seg Neutrophils # APTT ABG pH ABG pO2 ABG O2 Saturation ABG Base Excess ABG Hemoglobin Sodium 135 L Potassium Chloride 96.6 L Carbon Dioxide BUN 25 H Glucose 131 H POC Glucose 123 H Magnesium AST ALT Troponin T C-Reactive Protein Total Protein Albumin 3.1 L Cholesterol LDL Cholesterol Direct HDL Cholesterol Free T4 Urine WBC (Auto) Coronavirus (PCR) 10/26/21 10/27/21 10/27/21 21:39 06:08 06:53 RBC MCV MCH Lymph % (Auto) Lymph # (Auto) Seg Neutrophils % Seg Neutrophils # APTT ABG pH ABG pO2 ABG O2 Saturation ABG Base Excess ABG Hemoglobin Sodium 135 L Potassium Chloride 97.2 L Carbon Dioxide BUN 32 H Glucose 173 H POC Glucose 132 H 137 H Magnesium AST ALT Troponin T C-Reactive Protein Total Protein 6.2 L Albumin 2.7 L Cholesterol LDL Cholesterol Direct HDL Cholesterol Free T4 Urine WBC (Auto) Coronavirus (PCR) 10/27/21 10/27/21 10/27/21 06:53 11:49 16:41 RBC 5.31 H MCV 72 L MCH 23 L Lymph % (Auto) Lymph # (Auto) Seg Neutrophils % 74.8 H Seg Neutrophils # APTT ABG pH ABG pO2 ABG O2 Saturation ABG Base Excess ABG Hemoglobin Sodium Potassium Chloride Carbon Dioxide BUN Glucose POC Glucose 148 H 117 H Magnesium AST ALT Troponin T C-Reactive Protein Total Protein Albumin Cholesterol LDL Cholesterol Direct HDL Cholesterol Free T4 Urine WBC (Auto) Coronavirus (PCR) 10/27/21 10/28/21 10/28/21 23:03 06:14 07:10 RBC MCV MCH Lymph % (Auto) Lymph # (Auto) Seg Neutrophils % Seg Neutrophils # APTT ABG pH ABG pO2 ABG O2 Saturation ABG Base Excess ABG Hemoglobin Sodium 134 L Potassium Chloride 93.8 L Carbon Dioxide BUN 33 H Glucose 124 H POC Glucose 145 H 144 H Magnesium AST ALT Troponin T C-Reactive Protein Total Protein 6.2 L Albumin 2.8 L Cholesterol LDL Cholesterol Direct HDL Cholesterol Free T4 Urine WBC (Auto) Coronavirus (PCR) Chest x-ray: report reviewed, image reviewed Additional Studies: CHEST - 1 VIEW 10/24/21 INDICATION: F/U, intubated COMPARISON: Yesterday FINDINGS: SUPPORT DEVICES: New nasogastric tube with tip near the GE junction should be advanced another 5- 10 cm. Otherwise unchanged support device positioning. Of note, the endotracheal tube remains below the level of the clavicles and should be retracted 2-3 cm. HEART: Stable cardiomediastinal silhouette. LUNGS/PLEURA: Clear lungs. ADDITIONAL FINDINGS: None. IMPRESSION: Support devices as above. Clear lungs. Allied health notes reviewed: nursing
[2021-10-28] MEDS: levETIRAcetam 500 MG/5 ML ORAL LIQD PO SCH (22:38)
[2021-10-28] MEDS: metOLazone 2.5 MG TAB PO SCH (22:38)
[2021-10-28] MEDS: HEPARIN 5,000 UNIT/1 ML VIAL SUB-Q SCH (22:38)
[2021-10-28] MEDS: OXYBUTYNIN 5 MG TAB PO SCH (22:39)
[2021-10-28] MEDS: ASCORBIC ACID 500 MG TAB PO SCH (22:39)
[2021-10-28] MEDS: ZINC SULFATE 220 MG CAP PO SCH (22:39)
[2021-10-29] MEDS: INSULIN REGULAR, HUMAN 100 UNITS/1 ML SUB-Q SCH (00:21)
[2021-10-29] MEDS: PRAVASTATIN 40 MG TAB PO SCH (01:01)
--- NOTE | 2021-10-29 13:05 | Progress Note ---
Assessment and Plan - Patient Problems (1) Cardiopulmonary arrest Current Visit: Yes Status: Acute Plan to address problem: Frail elderly 89-year-old who is admitted following respiratory failure due to acute COVID-19 pneumonia. No acute cardiac complaints. Echocardiogram shows moderate to severe concentric left ventricle hypertrophy, left ventricular systolic function within normal limit with ejection fraction 55 %. We will continue conservative cardiac management and follow-up. Subjective Date of service: 10/29/21 Principal diagnosis: Covid pneumonia, respiratory arrest Interval history: Patient is no acute distress. Appears frail, elderly and lethargic. No new cardiac events reported. Objective Vital Signs Temp Pulse Resp BP Pulse Ox 10/29/21 00:00 20 98 10/28/21 22:41 65 117/59 10/28/21 22:17 97.4 F L 65 16 117/59 93 10/28/21 22:00 65 10/28/21 17:41 97.4 F L 65 18 154/74 96 - Physical Examination Narrative exam: Full physical exam is deferred due to acute Covid infection. General: Cachectic, Other (Comfortable, no acute distress) HEENT: Positive: Other (Pupils fixed) Neuro: Positive: Other (Unresponsive, on the vent) Abdomen: Positive: Soft Skin: Positive: Clear Extremities: Absent: edema - Allied health notes Allied health notes reviewed: nursing
--- NOTE | 2021-10-29 14:19 | Progress Note ---
Assessment and Plan Acute hypoxemic respiratory failure on MVS Possible aspiration pneumonia NSTEMI Metabolic acidosis Hypokalemia DM II Urinary tract infection Seizures CHF History of meningioma Osteoarthritis Oropharyngeal dysphagia Adult failure to thrive Elevated serum transaminases - discharge planning ongoing concurrently - continue care as below otherwise; - advance diet per MANAGER VOICE team - continue supplemental oxygen to keep O2 sats > 90% - continue bronchodilators (HUMA) with pulm hygiene per RT - prn analgesia per pain score - continue to avoid nephrotoxins, renally dose all medications - mobility protocols to prevent pressure ulcers - PT/OT as tolerated - Wound care per RN/WCT - continue accuchecks with glycemic control per SSI for target blood glucose < 180 mg/dL - home oxygen evaluation at discharge - GI & VTE prophylaxis - Flu & pneumovax per protocol - Pulmonary out patient follow up for PFTs and optimization of respiratory status - continue other care per attending / other consultants COVID SPECIFIC INTERVENTIONS - Remdesivir as per ID/Pulmonary developed protocols (Ordered) - systemic steroids for severe COVID-19 infection empirically (Dexamethasone X 10 days) - follow repeat COVID tests results - zinc and vitamin C supplementation - Monitor inflammatory markers per facility protocol - ferritin, Ddimer, CRP - therapeutic anticoagulation per system Protocol based on d-dimer and clinical considerations (prophylaxis dosing) - Continue contact and airborne isolation ... re-evaluate in am & prn Subjective Date of service: 10/29/21 Principal diagnosis: AHRF s/p MVS; Pneumonia; NSTEMI; DM II; UTI; Seizures; CHF; Adult FTT Interval history: Patient is seen today for: Acute hypoxemic respiratory failure; Pneumonia; NSTEMI; DM II; UTI; Seizures; CHF; Adult FTT Seen and examined at bedside; 24hour events reviewed; nursing and respiratory care staff consulted; no adverse overnight events reported to me; resting in bed; Objective Constitutional: no acute distress Eyes: non-icteric ENT: oropharynx moist Neck: supple, no lymphadenopathy, no JVD Effort: normal Ascultation: Bilateral: diminished breath sounds, rhonchi Percussion: Bilateral: not dull Cardiovascular: regular rate and rhythm Gastrointestinal: normoactive bowel sounds, soft, non-tender, non-distended (protuberant) Integumentary: normal Extremities: no cyanosis, pulses normal, no ischemia or petechiae Neurologic: non-focal exam (grossly), pupils equal and round, CN II-XII normal Psychiatric: mood appropriate, affect normal CBC and BMP: 10/27/21 06:53 10/28/21 07:10 ABG, PT/INR, D-dimer: ABG ABG pH 7.445 pH Units (7.350-7.450) 10/24/21 Unknown ABG pCO2 32.0 mm Hg 10/24/21 Unknown ABG pO2 122.4 mm Hg (80.0-90.0) H 10/24/21 Unknown ABG O2 Saturation 98.5 % (95.0-99.0) 10/24/21 Unknown PT/INR, D-dimer PT 14.3 Sec. (12.2-14.9) 10/23/21 Unknown INR 1.00 (0.87-1.13) 10/23/21 Unknown Abnormal lab findings: Abnormal Labs 10/23/21 10/23/21 10/23/21 13:35 14:27 17:00 RBC 5.20 H MCV 73 L MCH 22 L Lymph % (Auto) 10.7 L Lymph # (Auto) 1.1 L Seg Neutrophils % 84.6 H Seg Neutrophils # 8.8 H APTT ABG pH 7.339 L ABG pO2 288.6 H ABG O2 Saturation 99.5 H ABG Base Excess -4.9 L ABG Hemoglobin 11.7 L Sodium Potassium Chloride Carbon Dioxide BUN Glucose POC Glucose 145 H Magnesium AST ALT Troponin T C-Reactive Protein Total Protein Albumin Cholesterol LDL Cholesterol Direct HDL Cholesterol Free T4 Urine WBC (Auto) Coronavirus (PCR) 10/23/21 10/23/21 10/23/21 22:38 23:50 Unknown RBC MCV MCH Lymph % (Auto) Lymph # (Auto) Seg Neutrophils % Seg Neutrophils # APTT ABG pH ABG pO2 ABG O2 Saturation ABG Base Excess ABG Hemoglobin Sodium Potassium Chloride Carbon Dioxide BUN Glucose POC Glucose 176 H Magnesium AST ALT Troponin T 0.321 H* D C-Reactive Protein Total Protein Albumin Cholesterol LDL Cholesterol Direct HDL Cholesterol Free T4 Urine WBC (Auto) 45.0 H Coronavirus (PCR) 10/23/21 10/23/21 10/23/21 Unknown Unknown Unknown RBC MCV MCH Lymph % (Auto) Lymph # (Auto) Seg Neutrophils % Seg Neutrophils # APTT 22.0 L ABG pH ABG pO2 ABG O2 Saturation ABG Base Excess ABG Hemoglobin Sodium Potassium 2.8 L* Chloride 110.1 H Carbon Dioxide 18 L BUN 24 H Glucose 202 H POC Glucose Magnesium 1.60 L AST 100 H ALT 65 H Troponin T 0.082 H C-Reactive Protein Total Protein 5.9 L Albumin 2.8 L Cholesterol 202 H LDL Cholesterol Direct 139 H HDL Cholesterol 36 L Free T4 1.81 H Urine WBC (Auto) Coronavirus (PCR) 10/24/21 10/24/21 10/24/21 05:30 05:30 05:30 RBC 5.27 H MCV 72 L MCH 22 L Lymph % (Auto) Lymph # (Auto) 1.0 L Seg Neutrophils % 79.8 H Seg Neutrophils # APTT ABG pH ABG pO2 ABG O2 Saturation ABG Base Excess ABG Hemoglobin Sodium Potassium Chloride Carbon Dioxide BUN 24 H Glucose POC Glucose Magnesium AST ALT Troponin T 0.365 H* C-Reactive Protein Total Protein Albumin Cholesterol LDL Cholesterol Direct HDL Cholesterol Free T4 Urine WBC (Auto) Coronavirus (PCR) 10/24/21 10/24/21 10/24/21 08:20 09:35 16:11 RBC MCV MCH Lymph % (Auto) Lymph # (Auto) Seg Neutrophils % Seg Neutrophils # APTT ABG pH 7.500 H ABG pO2 126.0 H ABG O2 Saturation ABG Base Excess ABG Hemoglobin Sodium Potassium Chloride Carbon Dioxide BUN Glucose POC Glucose Magnesium AST ALT Troponin T C-Reactive Protein 7.10 H Total Protein Albumin Cholesterol LDL Cholesterol Direct HDL Cholesterol Free T4 Urine WBC (Auto) Coronavirus (PCR) Positive A 10/24/21 10/25/21 10/25/21 Unknown 04:29 04:29 RBC 5.58 H MCV 71 L MCH 22 L Lymph % (Auto) Lymph # (Auto) Seg Neutrophils % Seg Neutrophils # APTT ABG pH ABG pO2 122.4 H ABG O2 Saturation ABG Base Excess ABG Hemoglobin Sodium Potassium 3.2 L Chloride Carbon Dioxide BUN 21 H Glucose 119 H POC Glucose Magnesium AST ALT Troponin T C-Reactive Protein Total Protein Albumin Cholesterol LDL Cholesterol Direct HDL Cholesterol Free T4 Urine WBC (Auto) Coronavirus (PCR) 10/25/21 10/25/21 10/25/21 06:08 16:19 16:22 RBC MCV MCH Lymph % (Auto) Lymph # (Auto) Seg Neutrophils % Seg Neutrophils # APTT ABG pH ABG pO2 ABG O2 Saturation ABG Base Excess ABG Hemoglobin Sodium Potassium Chloride Carbon Dioxide BUN 21 H Glucose 162 H POC Glucose 128 H 146 H Magnesium AST ALT Troponin T C-Reactive Protein Total Protein Albumin 2.8 L Cholesterol LDL Cholesterol Direct HDL Cholesterol Free T4 Urine WBC (Auto) Coronavirus (PCR) 10/25/21 10/26/21 10/26/21 21:17 05:54 11:37 RBC MCV MCH Lymph % (Auto) Lymph # (Auto) Seg Neutrophils % Seg Neutrophils # APTT ABG pH ABG pO2 ABG O2 Saturation ABG Base Excess ABG Hemoglobin Sodium Potassium Chloride Carbon Dioxide BUN Glucose POC Glucose 115 H 141 H 125 H Magnesium AST ALT Troponin T C-Reactive Protein Total Protein Albumin Cholesterol LDL Cholesterol Direct HDL Cholesterol Free T4 Urine WBC (Auto) Coronavirus (PCR) 10/26/21 10/26/21 10/26/21 14:28 14:28 17:15 RBC 5.68 H MCV 72 L MCH 22 L Lymph % (Auto) Lymph # (Auto) Seg Neutrophils % Seg Neutrophils # APTT ABG pH ABG pO2 ABG O2 Saturation ABG Base Excess ABG Hemoglobin Sodium 135 L Potassium Chloride 96.6 L Carbon Dioxide BUN 25 H Glucose 131 H POC Glucose 123 H Magnesium AST ALT Troponin T C-Reactive Protein Total Protein Albumin 3.1 L Cholesterol LDL Cholesterol Direct HDL Cholesterol Free T4 Urine WBC (Auto) Coronavirus (PCR) 10/26/21 10/27/21 10/27/21 21:39 06:08 06:53 RBC MCV MCH Lymph % (Auto) Lymph # (Auto) Seg Neutrophils % Seg Neutrophils # APTT ABG pH ABG pO2 ABG O2 Saturation ABG Base Excess ABG Hemoglobin Sodium 135 L Potassium Chloride 97.2 L Carbon Dioxide BUN 32 H Glucose 173 H POC Glucose 132 H 137 H Magnesium AST ALT Troponin T C-Reactive Protein Total Protein 6.2 L Albumin 2.7 L Cholesterol LDL Cholesterol Direct HDL Cholesterol Free T4 Urine WBC (Auto) Coronavirus (PCR) 10/27/21 10/27/21 10/27/21 06:53 11:49 16:41 RBC 5.31 H MCV 72 L MCH 23 L Lymph % (Auto) Lymph # (Auto) Seg Neutrophils % 74.8 H Seg Neutrophils # APTT ABG pH ABG pO2 ABG O2 Saturation ABG Base Excess ABG Hemoglobin Sodium Potassium Chloride Carbon Dioxide BUN Glucose POC Glucose 148 H 117 H Magnesium AST ALT Troponin T C-Reactive Protein Total Protein Albumin Cholesterol LDL Cholesterol Direct HDL Cholesterol Free T4 Urine WBC (Auto) Coronavirus (PCR) 10/27/21 10/28/21 10/28/21 23:03 06:14 07:10 RBC MCV MCH Lymph % (Auto) Lymph # (Auto) Seg Neutrophils % Seg Neutrophils # APTT ABG pH ABG pO2 ABG O2 Saturation ABG Base Excess ABG Hemoglobin Sodium 134 L Potassium Chloride 93.8 L Carbon Dioxide BUN 33 H Glucose 124 H POC Glucose 145 H 144 H Magnesium AST ALT Troponin T C-Reactive Protein Total Protein 6.2 L Albumin 2.8 L Cholesterol LDL Cholesterol Direct HDL Cholesterol Free T4 Urine WBC (Auto) Coronavirus (PCR) Allied health notes reviewed: nursing
--- NOTE | 2021-10-29 19:38 | Discharge Summary ---
Providers - Providers Date of Admission: 10/23/21 15:16 Date of discharge: 10/29/21 Attending physician: ANURADHA HENSLEY 10/23/21 Consult to Cardiac Rehabilitation [CONS] Routine Reason For Exam: Phase I 10/23/21 15:23 Consult to Cardiology [CONS] Routine Consulting Provider: JASPER RUBI Reason For Exam: V Tach 10/24/21 08:01 Consult to Physician [CONS] Routine Comment: Consulting Provider: RAYMUNDO REED Physician Instructions: Reason For Exam: Critical Care Management 10/24/21 10:19 Consult to Dietitian/Nutrition [CONS] Routine Physician Instructions: Assess nutrtn needs, initiate, modify, manage TF Reason For Exam: Reason for Consult: Write/Manage Tube Feeding Reason for Consult: Write/Manage Tube Feeding 10/25/21 18:33 Speech Therapy Evaluation and Treat [CONS] Routine Reason For Exam: Speech swallow Primary care physician: SHAREPOINT MANAGER Hospitalization Condition: Fair Pertinent studies: CT head without contrast Multiple chest x-rays Echocardiogram Abdominal Procedures: Intubation and mechanical ventilation Extubation 10/24/2021 Hospital course: 89-year-old female patient with significant past medical history of hypertension, malnutrition, DM, seizure disorder, osteoarthritis, meningioma was admitted through emergency room with history of unresponsiveness and with possible out of the hospital cardiopulmonary arrest/ acute hypoxemic respiratory patient was intubated and admitted to ICU Evaluated by pulmonary critical, can filling room sweeper and medications optimized patient also tested positive for COVID-19 managed per protocols, patient was subsequently extubated and transferred to the medical floor Patient had extensive work-up as mentioned above Case management have evaluated the patient, and patient was set up for home hospice. The patient is comfortable Vital signs stable, tolerating PEG feeds Being transferred home Case management assisting with discharge planning Patient is full CODE STATUS Hemodynamically stable at discharge Discharge diagnosis: --Acute hypoxemic respiratory failure extubated Was extubated currently on room air Continue supportive care --VTACH /cardiopulmonary arrest[per cardiology] There was initially concern regarding VT but we were unable to find any documentation. Amiodarone has been stopped. She has been successfully weaned off the ventilator. --Aspiration Pneumonia Continue antibiotics Passed speech eval today --COVID positive IV dexamethasone and IV remdesivir 3/4 OT evaluation currently saturating well on room air --NSTEMI (non-ST elevated myocardial infarction) --Acute respiratory failure: Frail elderly 89-year-old who is admitted following an out of hospital cardiopulmonary arrest. She was found to have respiratory failure and is Covid positive. There was initially concern regarding VT but we were unable to find any documentation. Amiodarone has been stopped. She has been successfully weaned off the ventilator. --Troponin elevation: Due to cardiopulmonary event as noted above. Echocardiogram shows moderate to severe concentric left ventricle hypertrophy, left ventricular systolic function within normal limit with ejection fraction 55 %. We will continue conservative cardiac management. --Atrial Fibrilation No A. fib at this point In sinus rhythm with first-degree AV block --CHF (congestive heart failure) Normal ejection fraction, CHF ruled out --UTI (urinary tract infection) Resolved --Seizure disorder On seizure medication --Severe protein calorie malnutrition --h/o Meningioma - Patient has a history - CT head reviewed - Continue Keppra therapy - seizure precautions - supportive care --Type 2 Diabetes - SSI Q6hrs - Avoid hypoglycemia --GI/DVT prophylaxis - Continue PPI- Prevacid - Continue AC- Heparin SubQ - SCDs bilateral lower extremities while in bed Hemo-dynamically stable at discharge With guarded prognosis Disposition: 50 HOSPICE/HOME Final Discharge Diagnosis (Prints w/discharge instructions): Acute hypoxemic respiratory failure requiring intubation extubation. Currently on room air. COVID-19 infection. Non-ST elevation AR. Atrial fibrillation. No evidence of CHF/ejection fraction is normal. V. tach/cardiac arrest [per cardiology ]. Urinary tract infection resolved. History of seizures. Severe protein calorie malnutrition. History of meningioma. type 2 diabetes mellitus. Atrial fibrillation. Congestive heart failure. Aspiration pneumonia Time spent for discharge: 45 min Core Measure Documentation - Palliative Care Palliative Care/ Comfort Measures: Hospice Care - Core Measures Any of the following diagnoses?: none Exam - Constitutional Vitals: Temp Pulse Resp BP Pulse Ox 98.1 F 56 L 18 162/54 100 10/29/21 12:46 10/29/21 12:46 10/29/21 12:46 10/29/21 12:46 10/29/21 12:46 General appearance: Present: no acute distress, cachectic, other - EENT Eyes: Present: PERRL, EOM intact - Neck Neck: Present: supple - Respiratory Respiratory effort: normal Respiratory: bilateral: diminished, negative: rales, rhonchi, wheezing - Cardiovascular Rhythm: regular Heart Sounds: Present: S1 & S2 - Extremities Extremities: no ischemia, No edema - Abdominal General gastrointestinal: Present: soft, non-tender, normal bowel sounds - Integumentary Integumentary: Present: clear, warm - Musculoskeletal Musculoskeletal: generalized weakness - Psychiatric Psychiatric: other - Neurologic Neurologic: other Plan Activity: advance as tolerated, fall precautions Diet: other (Tube feeding diet) Additional Instructions: Fall precautions, aspiration precautions. Rest of the management per hospice biomedical equipment support specialist Follow up with: JASPER RUBI MD [Staff Physician] - 14 Days PRIMARY CARE, [Primary Care Provider] - 3-5 Days RAYMUNDO REED MD [Staff Physician] - 10 Days Prescriptions: hydrALAZINE [Apresoline TAB] 25 mg PO Q8HR #90 tablet Aspirin [Aspirin BABY CHEW TAB] 81 mg PO QDAY #30 tab.chew Dexamethasone 6 mg PO DAILY #5 Oxybutynin [Ditropan] 5 mg PO BID #30 tablet Gabapentin 300 mg PO QPM #30 capsule levETIRAcetam [Keppra] 500 mg PO BID 30 Days oral.liqd Furosemide [Lasix TAB] 20 mg PO QDAY #30 tablet Lansoprazole Solutab [Prevacid Solutab] 30 mg FEEDTUBE QDAY #30 tab.rapdis Folic Acid/Vit B Comp W-C [Renal Caps] 1 cap PO QDAY #30 capsule traMADoL [Ultram 50 MG tab] 50 mg PO Q6H PRN #20 tablet PRN Reason: Pain, Moderate (4-6) Ascorbic Acid [Vitamin C] 500 mg PO BID #30 tablet Zinc Sulfate 220 mg PO BID #30 capsule
--- NOTE | 2021-10-29 19:38 | Progress Note ---
Assessment and Plan Assessment and plan: --Acute hypoxemic respiratory failure extubated Was extubated currently on room air Continue supportive care --Aspiration Pneumonia Continue antibiotics Passed speech eval today --COVID positive IV dexamethasone and IV remdesivir 3/ OT evaluation currently saturating well on room air --NSTEMI (non-ST elevated myocardial infarction) --Acute respiratory failure: Frail elderly 89-year-old who is admitted following an out of hospital cardiopulmonary arrest. She was found to have respiratory failure and is Covid positive. There was initially concern regarding VT but we were unable to find any documentation. Amiodarone has been stopped. She has been successfully weaned off the ventilator. --Troponin elevation: Due to cardiopulmonary event as noted above. Echocardiogram shows moderate to severe concentric left ventricle hypertrophy, left ventricular systolic function within normal limit with ejection fraction 55 %. We will continue conservative cardiac management. --Atrial Fibrilation No A. fib at this point In sinus rhythm with first-degree AV block --CHF (congestive heart failure) EF is near normal No diuretics --VTACH There was initially concern regarding VT but we were unable to find any documentation. Amiodarone has been stopped. She has been successfully weaned off the ventilator. --UTI (urinary tract infection) Resolved --Seizure disorder On seizure medication --Severe protein calorie malnutrition --h/o Meningioma - Patient has a history - CT head reviewed - Continue Keppra therapy - seizure precautions - supportive care --Type 2 Diabetes - SSI Q6hrs - Avoid hypoglycemia --GI/DVT prophylaxis - Continue PPI- Prevacid - Continue AC- Heparin SubQ - SCDs bilateral lower extremities while in bed Subjective Date of service: 10/28/21 Principal diagnosis: AHRF s/p MVS; Pneumonia; NSTEMI; DM II; UTI; Seizures; CHF; Adult FTT Interval history: This is a 89-year-old female with past medical history of CHF, HTN, DM, Seizure disorder, meningioma, OA, and malnutrition admitted for acute hypoxemic respiratory failure secondary to aspiration pneumonia requiring ventilatory support. Hospital Course to Date: 10/24: Intubated and sedated, RASS-5 on versed gtt, on low vent setting. Will do a sedation vacation to assess patient's mental status. Patient was on amio gtt for VTACH/Afib, now on hold due to bradycardia. Patient is SR on the monitor this am, HR 60-70s, not on any pressors. Pending cardiology consult. Patient is afebrile, wbcs normal, with no report of any diarrhea/loose stools, will hold flagyl for now. Continue IV Levaquin for now, COVID PCR result is pending. 10/25: S/p extubation currently stable on RA. Patient is nonverval but awake, per family this is her baseline. Speech swallo eval ordered, continue TF for now. IV decadron and IV remdesiver initiated per CCM. Patient is stable for transfer to the floor. October S/p extubation Patient stable on room air Patient on Decadron and IV remdesivir October 27, 2021 S/p extubation Patient stable on room air Patient on Decadron and IV remdesivir Swallow evaluation--complete Discontinue NG tube Start pured diet More alert and states she is in the hospital Tried calling son at phone number [phone]-mailbox was full, left the floor number [phone] to contact me 10/28/21; more alert and awake Patient is currently on room air, COVID-19, continue steroid and remdesivir per protocol Full CODE STATUS, DC planning per case management , considering home hospice 10/29/21; DC planning per case management, possible DC to home hospice tomorrow History Interval history: I have seen and examined the patient at the bedside Patient's chart and medications reviewed No new events reported by the nursing Patient is not in acute distress Vital signs noted Hospitalist Physical - Constitutional Vitals: Temp Pulse Resp BP Pulse Ox 98.1 F 56 L 18 162/54 100 10/29/21 12:46 10/29/21 12:46 10/29/21 12:46 10/29/21 12:46 10/29/21 12:46 General appearance: Present: no acute distress, well-nourished - EENT Eyes: Present: PERRL, EOM intact - Neck Neck: Present: supple, normal ROM - Respiratory Respiratory effort: normal Respiratory: bilateral: diminished, negative: rales, rhonchi, wheezing - Cardiovascular Rhythm: regular Heart Sounds: Present: S1 & S2 - Extremities Extremities: no ischemia, No edema - Abdominal General gastrointestinal: soft, non-tender, non-distended, normal bowel sounds - Integumentary Integumentary: Present: clear, warm - Psychiatric Psychiatric: other (Noncommunicative) - Neurologic Neurologic: moves all extremities (Noncommunicative) HEART Score - HEART Score Troponin: Troponin T 0.365 ng/mL (0.00-0.029) H* 10/24/21 05:30 Results - Labs CBC & Chem 7: 10/27/21 06:53 02 07:10 Labs: Laboratory Last Values WBC 7.3 K/mm3 (4.5-11.0) 10/27/21 06:53 RBC 5.31 M/mm3 (3.65-5.03) H 10/27/21 06:53 Hgb 12.1 gm/dl (10.1-14.3) 10/27/21 06:53 Hct 38.1 % (30.3-42.9) 10/27/21 06:53 MCV 72 fl (79-97) L 10/27/21 06:53 MCH 23 pg (28-32) L 10/27/21 06:53 MCHC 32 % (30-34) 10/27/21 06:53 RDW 14.4 % (13.2-15.2) 10/27/21 06:53 Plt Count 310 K/mm3 (140-440) 10/27/21 06:53 Lymph % (Auto) 18.6 % (13.4-35.0) 10/27/21 06:53 [place] % (Auto) 6.3 % (0.0-7.3) 10/27/21 06:53 Eos % (Auto) 0.1 % (0.0-4.3) 10/27/21 06:53 Baso % (Auto) 0.2 % (0.0-1.8) 10/27/21 06:53 Lymph # (Auto) 1.4 K/mm3 (1.2-5.4) 10/27/21 06:53 [place] # (Auto) 0.5 K/mm3 (0.0-0.8) 10/27/21 06:53 Eos # (Auto) 0.0 K/mm3 (0.0-0.4) 10/27/21 06:53 Baso # (Auto) 0.0 K/mm3 (0.0-0.1) 10/27/21 06:53 Seg Neutrophils % 74.8 % (40.0-70.0) H 10/27/21 06:53 Seg Neutrophils # 5.5 K/mm3 (1.8-7.7) 10/27/21 06:53 PT 14.3 Sec. (12.2-14.9) 10/23/21 Unknown INR 1.00 (0.87-1.13) 10/23/21 Unknown APTT 22.0 Sec. (24.2-36.6) L 10/23/21 Unknown ABG pH 7.445 pH Units (7.350-7.450) 10/24/21 Unknown ABG pCO2 32.0 mm Hg 10/24/21 Unknown ABG pO2 122.4 mm Hg (80.0-90.0) H 10/24/21 Unknown ABG HCO3 21.5 mmol/L (20.0-26.0) 10/24/21 Unknown ABG O2 Saturation 98.5 % (95.0-99.0) 10/24/21 Unknown ABG O2 Content 17.5 (0.0-44) 10/24/21 Unknown ABG Base Excess -1.8 mmol/L (-2.0-3.0) 10/24/21 Unknown ABG Hemoglobin 12.7 gm/dl (12.0-16.0) 10/24/21 Unknown ABG Carboxyhemoglobin 1.1 % (0.0-5.0) 10/24/21 Unknown ABG Methemoglobin 0.5 % (0.0-1.5) 10/24/21 Unknown VBG pH Cancelled 10/23/21 13:35 Oxyhemoglobin 96.9 % (95.0-99.0) 10/24/21 Unknown FiO2 30 % 10/24/21 Unknown Sodium 134 mmol/L (137-145) L 10/28/21 07:10 Potassium 4.3 mmol/L (3.6-5.0) 10/28/21 07:10 Chloride 93.8 mmol/L (98-107) L 10/28/21 07:10 Carbon Dioxide 27 mmol/L (22-30) 10/28/21 07:10 Anion Gap 18 mmol/L 10/28/21 07:10 BUN 33 mg/dL (7-17) H 10/28/21 07:10 Creatinine 0.7 mg/dL (0.6-1.2) 10/28/21 07:10 Estimated GFR > 60 ml/min 10/28/21 07:10 BUN/Creatinine Ratio 47 % 10/28/21 07:10 Glucose 124 mg/dL (65-100) H 10/28/21 07:10 POC Glucose 98 mg/dL (70-105) 10/29/21 11:46 Lactic Acid 1.70 mmol/L (0.7-2.0) 10/23/21 Unknown Calcium 8.9 mg/dL (8.4-10.2) 10/28/21 07:10 Phosphorus 2.80 mg/dL (2.5-4.5) 10/25/21 04:29 Magnesium 2.30 mg/dL (1.7-2.3) 10/25/21 04:29 Total Bilirubin 0.30 mg/dL (0.1-1.2) 10/28/21 07:10 AST 28 units/L (5-40) 10/28/21 07:10 ALT 23 units/L (7-56) 10/28/21 07:10 Alkaline Phosphatase 75 units/L (35-129) 10/28/21 07:10 Ammonia 49.0 umol/L (25-60) 10/23/21 Unknown Troponin T 0.365 ng/mL (0.00-0.029) H* 10/24/21 05:30 C-Reactive Protein 7.10 mg/dL (0.00-1.30) H 10/24/21 16:11 Total Protein 6.2 g/dL (6.3-8.2) L 10/28/21 07:10 Albumin 2.8 g/dL (3.9-5) L 10/28/21 07:10 Albumin/Globulin Ratio 0.8 % 10/28/21 07:10 Triglycerides 90 mg/dL (2-149) 10/23/21 Unknown Cholesterol 202 mg/dL (50-199) H 10/23/21 Unknown LDL Cholesterol Direct 139 mg/dL (50-130) H 10/23/21 Unknown HDL Cholesterol 36 mg/dL (40-59) L 10/23/21 Unknown Cholesterol/HDL Ratio 5.61 % 10/23/21 Unknown Procalcitonin 3.57 ng/mL (<0.15) 10/24/21 16:11 TSH 0.771 mlU/mL (0.270-4.200) 10/23/21 Unknown Free T4 1.81 ng/dL (0.76-1.46) H 10/23/21 Unknown Urine Color Yellow (Yellow) 10/23/21 Unknown Urine Turbidity Slightly-cloudy (Clear) 10/23/21 Unknown Urine pH 6.0 (5.0-7.0) 10/23/21 Unknown Ur Specific [place] 1.023 (1.003-1.030) 10/23/21 Unknown Urine Protein 100 mg/dl mg/dL (Negative) 10/23/21 Unknown Urine Glucose (UA) Neg mg/dL (Negative) 10/23/21 Unknown Urine Ketones Tr mg/dL (Negative) 10/23/21 Unknown Urine Blood Mod (Negative) 10/23/21 Unknown Urine Nitrite Neg (Negative) 10/23/21 Unknown Urine Bilirubin Neg (Negative) 10/23/21 Unknown Urine Urobilinogen 4.0 mg/dL (<2.0) 10/23/21 Unknown Ur Leukocyte Esterase Lg (Negative) 10/23/21 Unknown Urine WBC (Auto) 45.0 /HPF (0.0-6.0) H 10/23/21 Unknown Urine RBC (Auto) 30.0 /HPF (0.0-6.0) 10/23/21 Unknown U Epithel Cells (Auto) < 1.0 /HPF (0-13.0) 10/23/21 Unknown Urine Bacteria (Auto) 1+ /HPF (Negative) 10/23/21 Unknown Urine Mucus Few /HPF 10/23/21 Unknown Urine Yeast (Budding) 1+ /HPF 10/23/21 Unknown Coronavirus (PCR) Positive (Negative) A 10/24/21 08:20 Gonzalez/IV: Voiding Method External Female Catheter Active Medications - Current Medications Current Medications: Generic Name Dose Route Start Last Admin Trade Name Freq PRN Reason Stop Dose Admin Acetaminophen 650 mg 10/23/21 16:00 Acetaminophen 650 Mg Rect Supp NM Q6H PRN Pain MILD(1-3)/Fever >100.5/MARTINEZ Acetaminophen 650 mg 10/23/21 17:30 Acetaminophen 325 Mg Tab PO Q6H PRN Pain, Mild (1-3) Albuterol 2.5 mg 10/23/21 17:00 Albuterol 2.5 Mg/3 Ml Nebu IH Q3HRT PRN Shortness Of Breath Lipase/Protease/Amylase 1 each 10/24/21 10:30 Lipase 10,500/Protease 25,000/Amylase 43,750 (Units) Dr Stone FEEDTUBE PRN PRN For Clogged Feeding Tube Ascorbic Acid 500 mg 10/25/21 16:00 10/28/21 22:39 Ascorbic Acid 500 Mg Tab PO 500 mg BID JANET Administration Aspirin 81 mg 10/24/21 10:00 10/27/21 09:45 Aspirin 81 Mg Tab Chew PO 81 mg QDAY JANET Administration Dexamethasone 6 mg 10/25/21 16:00 10/27/21 09:46 Dexamethasone 4 Mg/Ml Vial IV 11/03/21 10:01 6 mg DAILY JANET Administration Dextrose 0 ml 10/23/21 17:00 Dextrose 10% *Hypoglycemia IV PRN PRN Hypoglycemia Furosemide 20 mg 10/24/21 10:00 10/27/21 09:45 Furosemide 20 Mg Tab PO 20 mg QDAY JANET Administration Gabapentin 300 mg 10/23/21 18:00 10/27/21 19:48 Gabapentin 300 Mg Cap PO 300 mg QPM JANET Administration Heparin Sodium (Porcine) 5,000 unit 10/23/21 22:00 10/28/21 22:38 Heparin 5,000 Unit/1 Ml Vial SUB-Q 5,000 unit Q12HR JANET Administration Hydralazine HCl 25 mg 10/23/21 22:00 10/28/21 22:41 Hydralazine 25 Mg Tab PO 25 mg Q8HR JANET Administration Hydromorphone HCl 0.5 mg 10/23/21 16:00 Hydromorphone 1 Mg/1 Ml Inj IV Q23H PRN Pain , Severe (7-10) Insulin Human Regular 0 units 10/23/21 16:00 10/29/21 00:21 Insulin Regular, Human 100 Units/1 Ml SUB-Q Not Given Q6H [facility] Protocol Lansoprazole 30 mg 10/25/21 10:00 10/27/21 09:45 Lansoprazole 30 Mg Solutab FEEDTUBE 30 mg QDAY JANET Administration Levetiracetam 500 mg 10/24/21 22:00 10/28/21 22:38 Levetiracetam 500 Mg/5 Ml Oral Liqd PO 500 mg BID JANET Administration Metolazone 2.5 mg 10/23/21 22:00 10/28/21 22:38 Metolazone 2.5 Mg Tab PO 2.5 mg BID JANET Administration Multivit/Ca Carb/B Cmplx/FA/Prenat 1 cap 10/24/21 10:00 10/27/21 09:45 Folic Acid/Vit B Comp W-C 1 Mg (Renal Caps) PO 1 cap QDAY JANET Administration Oxybutynin Chloride 5 mg 10/23/21 22:00 10/28/21 22:39 Oxybutynin 5 Mg Tab PO 5 mg BID JANET Administration Oxycodone/Acetaminophen 1 tab 10/23/21 15:30 Oxycodone /Acetaminophen 5-325mg Tab PO Q16H PRN Pain, Moderate (4-6) Pravastatin Sodium 40 mg 10/23/21 22:00 10/29/21 01:01 Pravastatin 40 Mg Tab PO 40 mg QHS JANET Administration Simple Syrup 15 ml 10/24/21 10:30 Simple Syrup 15 Ml FEEDTUBE PRN PRN Hypoglycemia Simple Syrup 30 ml 10/24/21 10:30 Simple Syrup 15 Ml FEEDTUBE PRN PRN Hypoglycemia Sodium Bicarbonate 325 mg 10/24/21 10:30 Sodium Bicarbonate 325 Mg Tab FEEDTUBE PRN PRN For Clogged Feeding Tube Sodium Chloride 10 ml 10/23/21 22:00 10/28/21 22:42 Sodium Chloride 0.9% 10 Ml Flush Syringe IV 10 ml BID JANET Administration Sodium Chloride 10 ml 10/23/21 16:00 Sodium Chloride 0.9% 10 Ml Flush Syringe IV PRN PRN LINE FLUSH Sodium Chloride 50 ml 10/26/21 14:00 10/27/21 14:24 Sodium Chloride 0.9% 50 Ml Ivpb IV 10/30/21 14:01 50 ml Q24HR@1400 JANET Administration Tramadol HCl 50 mg 10/23/21 18:00 Tramadol 50 Mg Tab PO Q6H PRN Pain, Moderate (4-6) Zinc Sulfate 220 mg 10/25/21 16:00 10/28/21 22:39 Zinc Sulfate 220 Mg Cap PO 220 mg BID JANET Administration Nutrition/Malnutrition Assess - Dietary Evaluation Nutrition/Malnutrition Findings: Nutrition Notes Start: 10/24/21 10:42 Freq: Status: Active Protocol: Document 10/28/21 12:25 NAYAN (Rec: 10/28/21 12:46 NAYAN [id number]) Nutrition Notes Initial or Follow up Brief Note Current Diet TF-Promote @ 38 ml/hr (since L 10/24). Height 5 ft Weight 40 kg [place] Body Weight (kg) 45.45 BMI 17.2 Weight change and time frame No body weight change reported in 4 days. Weight Status Underweight Subjective/Other Information RD consult for routine F/U on TF tolerance. TRADING SPECIALIST 10/27: Swallow assessment completed. Continue puree diet with thin liquids. RD will wait for MD order to advance diet. Pt out of mechanical ventilation, on room air now saturating well. Percent of energy/protein needs met: Prescribed Promote @ 38 ml/hr provides for energy/protein needs (904 Kcal/57 g) during LOS, 100% Kcal; 100% AA. #2 Nutrition Diagnosis Underweight Diagnosis Progress(for reassessment Continues documentation) #1 Nutrition Diagnosis Inadequate oral intake Comments: Pt now on room air saturating well, according to Physical Assessment History notes. Diagnosis Progress(for reassessment Improved documentation) Is patient on ventilator? Yes Is Patient Ambulatory and/or Out of Bed No REE-([facility]-confined to bed) 903.864 Kcal/Kg value to use for calculation 30 Approximate Energy Requirements Using 1200 kcal/Kg Calculation Used for Recommendations Kcal/kg Additional Notes Protein: 1.2-2 g/Kg; 48-80 g/ day. Fluids: 1 ml/Kcal, or as per MD. Nutrition Intervention Nutrition Support: Continue Promote @ 45 ml/hr. Flush: 50 ml water Q 4 hr, or as per MD. Kcal 1,080 Protein (gm) 68 Carbohydrates (gm) 140 Fat (gm) 28 Fluid (mL) 906 Fiber (gm) 0 % RDI: 100% Kcal; 100% AA. Goal #1 Provide at least 75% of energy /protein needs through Enteral Feeding during LOS. Goal #2 Maintain body weight within +/ -3% of admission body weight during LOS. Follow-Up By: 11/04/21 Additional Comments Continue monitoring TF tolerance and BM.
[2021-10-29] MEDS: HEPARIN 5,000 UNIT/1 ML VIAL SUB-Q SCH (23:08)
[2021-10-30] MEDS: OXYBUTYNIN 5 MG TAB PO SCH ×2 (02:08→09:16)
[2021-10-30] MEDS: levETIRAcetam 500 MG/5 ML ORAL LIQD PO SCH ×2 (02:08→09:15)
[2021-10-30] MEDS: metOLazone 2.5 MG TAB PO SCH ×2 (02:09→09:15)
[2021-10-30] MEDS: ASCORBIC ACID 500 MG TAB PO SCH ×3 (02:09→09:23)
[2021-10-30] MEDS: ZINC SULFATE 220 MG CAP PO SCH ×2 (02:09→09:23)
[2021-10-30] MEDS: INSULIN REGULAR, HUMAN 100 UNITS/1 ML SUB-Q SCH (02:10)
[2021-10-30] MEDS: hydrALAZINE 25 MG TAB PO SCH (02:10)
[2021-10-30 08:45] VITALS: BP 140/70
[2021-10-30] MEDS: FUROSEMIDE 20 MG TAB PO SCH ×2 (09:14→09:15)
[2021-10-30] MEDS: ASPIRIN 81 MG TAB CHEW PO SCH (09:15)
[2021-10-30] MEDS: HEPARIN 5,000 UNIT/1 ML VIAL SUB-Q SCH (09:16)
[2021-10-30] MEDS: LANSOPRAZOLE 30 MG SOLUTAB FEEDTUBE SCH (09:16)
[2021-10-30] MEDS: dexAMETHasone 4 MG/ML VIAL IV SCH ×2 (09:17→09:18)
[2021-10-30] MEDS: FOLIC ACID/VIT B COMP W-C 1 MG (RENAL CAPS) PO SCH (09:23)
== END 2021-10-30 11:00 | disposition hospice, home (50) | DRG 208 ==
LOC: ED 12:20 → CC1 15:16 → 3A 10-25 18:22
PROVIDERS: ADMIT Internal Medicine; ATTEND Internal Medicine
PROC: 02HV33Z Insertion of Infusion Device into Superior Vena Cava, Percutaneous Approach (ICD-10-PCS; principal; 2021-10-23)
PROC: B548ZZA Ultrasonography of Superior Vena Cava, Guidance (ICD-10-PCS; 2021-10-23)
PROC: 5A1945Z Respiratory Ventilation, 24-96 Consecutive Hours (ICD-10-PCS; 2021-10-23)
PROC: 0BH17EZ Insertion of Endotracheal Airway into Trachea, Via Natural or Artificial Opening (ICD-10-PCS; 2021-10-23)
PROC: XW033E5 Introduction of Remdesivir Anti-infective into Peripheral Vein, Percutaneous Approach, New Technology Group 5 (ICD-10-PCS; 2021-10-25)
DX: U07.1 COVID-19 (principal); I21.4 Non-ST elevation (NSTEMI) myocardial infarction; J96.01 Acute respiratory failure with hypoxia; J69.0 Pneumonitis due to inhalation of food and vomit; I46.9 Cardiac arrest, cause unspecified; E43 Unspecified severe protein-calorie malnutrition; E87.2 Acidosis; N39.0 Urinary tract infection, site not specified; I47.2 Ventricular tachycardia; Z68.1 Body mass index [BMI] 19.9 or less, adult; K21.9 Gastro-esophageal reflux disease without esophagitis; I10 Essential (primary) hypertension; D32.9 Benign neoplasm of meninges, unspecified; E11.9 Type 2 diabetes mellitus without complications; I48.91 Unspecified atrial fibrillation; G40.909 Epilepsy, unspecified, not intractable, without status epilepticus; M19.90 Unspecified osteoarthritis, unspecified site; R62.7 Adult failure to thrive; E87.6 Hypokalemia; Z90.710 Acquired absence of both cervix and uterus; Z82.49 Family history of ischemic heart disease and other diseases of the circulatory system; Z96.659 Presence of unspecified artificial knee joint; Z79.82 Long term (current) use of aspirin
CPT/HCPCS: 36415; 70450; 71045; 74018; 80048; 80053; 80061; 81001; 82140; 82803; 82962; 83735; 84100; 84145; 84439; 84443; 84484; 85025; 85027; 85610; 85730; 86140; 87070; 87086; 87205; 93005; 93010; 93306; 94002; 94003; 94760; G0378; J7060; J7517; Q0162; Q9967; C8929; J0282; J0696; J1100; J1644; J1815; J1956; J2060; J3010; J3475; J3480; J7030; J7050; U0003

== ENCOUNTER 2021-11-01 05:13 | Emergency (ER) | payer MEDICARE ==
--- NOTE | 2021-11-01 07:26 | Emergency Department Report ---
ED Head Trauma HPI - General Chief complaint: Head Injury Stated complaint: FALL/HEMOTOMA TO HEAD Time Seen by Provider: 11/01/21 06:14 Source: EMS Mode of arrival: Stretcher Limitations: No Limitations - History of Present Illness Initial comments: 89-year-old female with a past medical history of dementia presents from assisted living with fall out of bed. Patient was found on the floor by assisted living staff with a hematoma to the forehead. Patient is not answering questions assumed to be secondary to dementia. No change in mental status has been reported by staff. - Related Data Previous Rx's Medication Instructions Recorded Last Taken Type Ascorbic Acid [Vitamin C] 500 mg PO BID #30 tablet 10/30/21 Unknown Rx Aspirin [Aspirin BABY CHEW TAB] 81 mg PO QDAY #30 tab.chew 10/30/21 Unknown Rx Dexamethasone 6 mg PO DAILY #5 10/30/21 Unknown Rx Folic Acid/Vit B Comp W-C [Renal 1 cap PO QDAY #30 capsule 10/30/21 Unknown Rx Caps] Furosemide [Lasix TAB] 20 mg PO QDAY #30 tablet 10/30/21 Unknown Rx Gabapentin 300 mg PO QPM #30 capsule 10/30/21 Unknown Rx Lansoprazole Solutab [Prevacid 30 mg FEEDTUBE QDAY #30 tab.rapdis 10/30/21 Unknown Rx Solutab] Oxybutynin [Ditropan] 5 mg PO BID #30 tablet 10/30/21 Unknown Rx Zinc Sulfate 220 mg PO BID #30 capsule 10/30/21 Unknown Rx hydrALAZINE [Apresoline TAB] 25 mg PO Q8HR #90 tablet 10/30/21 Unknown Rx levETIRAcetam [Keppra] 500 mg PO BID 30 Days oral.liqd 10/30/21 Unknown Rx traMADoL [Ultram 50 MG tab] 50 mg PO Q6H PRN #20 tablet 10/30/21 Unknown Rx Allergies/Adverse reactions: Allergies Allergy/AdvReac Type Severity Reaction Status Date / Time No Known Allergies Allergy Verified 10/28/21 14:04 ED Review of Systems ROS: Stated complaint: FALL/HEMOTOMA TO HEAD Other details as noted in HPI Comment: Unobtainable due to pts medical conditions ED Past Medical Hx - Past Medical History Hx Hypertension: Yes Hx Heart Attack/AMI: No Hx Congestive Heart Failure: No (per pt daughter, Lindy) Hx Diabetes: Yes Hx Deep Vein Thrombosis: No Hx Pulmonary Embolism: No Hx GERD: No Hx Liver Disease: No Hx Arthritis: No Hx Headaches / Migraines: No Hx Seizures: Yes (per pt daughterLnidy) Hx Asthma: No Hx COPD: No Hx Tuberculosis: No Hx Dementia: No Additional medical history: HIATAL HERNIA, meningioma - Surgical History Hx Coronary Stent: No Hx Pacemaker: No Hx Internal Defibrillator: No Additional Surgical History: Stent in kidney - Social History Smoking Status: Unknown if ever smoked Substance Use Type: None - Medications Home Medications: Home Medications Medication Instructions Recorded Confirmed Last Taken Type Ascorbic Acid [Vitamin C] 500 mg PO BID #30 tablet 10/30/21 Unknown Rx Aspirin [Aspirin BABY CHEW TAB] 81 mg PO QDAY #30 tab.chew 10/30/21 Unknown Rx Dexamethasone 6 mg PO DAILY #5 10/30/21 Unknown Rx Folic Acid/Vit B Comp W-C [Renal 1 cap PO QDAY #30 capsule 10/30/21 Unknown Rx Caps] Furosemide [Lasix TAB] 20 mg PO QDAY #30 tablet 10/30/21 Unknown Rx Gabapentin 300 mg PO QPM #30 capsule 10/30/21 11/01/21 Unknown Rx Lansoprazole Solutab [Prevacid 30 mg FEEDTUBE QDAY #30 tab.rapdis 10/30/21 Unknown Rx Solutab] Oxybutynin [Ditropan] 5 mg PO BID #30 tablet 10/30/21 11/01/21 Unknown Rx Zinc Sulfate 220 mg PO BID #30 capsule 10/30/21 11/01/21 Unknown Rx hydrALAZINE [Apresoline TAB] 25 mg PO Q8HR #90 tablet 10/30/21 11/01/21 Unknown Rx levETIRAcetam [Keppra] 500 mg PO BID 30 Days oral.liqd 10/30/21 11/01/21 Unknown Rx traMADoL [Ultram 50 MG tab] 50 mg PO Q6H PRN #20 tablet 10/30/21 11/01/21 Unknown Rx ED Physical Exam - General Limitations: No Limitations - Other Other exam information: General: No acute distress Head: Frontal scalp hematoma Eyes: normal appearance ENT: Moist mucous membranes Neck: Normal appearance, no midline tenderness Chest: Clear to auscultation bilaterally CV: Regular rate and rhythm Abdomen: Soft, normal bowel sounds, nontender, nondistended, no rebound or guarding Back: Normal inspection Extremity: Normal inspection, full range of motion without grimace with passive motion Neuro: Nonverbal, no facial asymmetry, equal movement of upper and lower extremity ED Course Vital Signs 11/01/21 11/01/21 11/01/21 05:30 05:45 06:01 Temperature Pulse Rate 94 H 81 79 Respiratory 15 13 14 Rate Blood Pressure 149/86 145/78 Blood Pressure [Left] O2 Sat by Pulse 94 94 Oximetry 11/01/21 11/01/21 11/01/21 06:15 06:19 06:31 Temperature 97.7 F Pulse Rate 67 71 Respiratory 11 L 18 Rate Blood Pressure 162/72 120/74 Blood Pressure [Left] O2 Sat by Pulse 98 98 Oximetry 11/01/21 11/01/21 11/01/21 06:45 07:01 07:15 Temperature Pulse Rate 68 65 67 Respiratory 15 12 19 Rate Blood Pressure 135/78 138/63 134/70 Blood Pressure [Left] O2 Sat by Pulse 98 95 95 Oximetry 11/01/21 11/01/21 11/01/21 07:31 07:49 08:01 Temperature Pulse Rate 63 78 81 Respiratory 10 L 22 15 Rate Blood Pressure 140/70 140/70 140/70 Blood Pressure [Left] O2 Sat by Pulse 98 98 98 Oximetry 11/01/21 11/01/21 11/01/21 08:15 08:31 08:39 Temperature Pulse Rate 76 80 Respiratory 18 19 Rate Blood Pressure 140/70 140/70 Blood Pressure [Left] O2 Sat by Pulse 97 98 98 Oximetry 11/01/21 11/01/21 11/01/21 08:41 08:45 09:01 Temperature Pulse Rate 88 76 74 Respiratory 21 18 17 Rate Blood Pressure 154/82 131/76 Blood Pressure 154/82 [Left] O2 Sat by Pulse 98 98 98 Oximetry 11/01/21 11/01/21 11/01/21 09:15 09:30 09:45 Temperature Pulse Rate 79 82 75 Respiratory 17 14 15 Rate Blood Pressure 131/76 193/156 167/113 Blood Pressure [Left] O2 Sat by Pulse 99 99 96 Oximetry 11/01/21 11/01/21 11/01/21 10:01 10:15 10:31 Temperature Pulse Rate 74 71 74 Respiratory 16 15 14 Rate Blood Pressure 206/164 206/164 166/135 Blood Pressure [Left] O2 Sat by Pulse 98 99 99 Oximetry 11/01/21 11/01/21 11/01/21 10:45 11:01 11:15 Temperature Pulse Rate 77 73 70 Respiratory 14 36 H 18 Rate Blood Pressure 166/135 148/75 148/75 Blood Pressure [Left] O2 Sat by Pulse 98 97 97 Oximetry 11/01/21 12:36 Temperature Pulse Rate 72 Respiratory 17 Rate Blood Pressure Blood Pressure 148/78 [Left] O2 Sat by Pulse 98 Oximetry - Lab Data Result diagrams: 11/01/21 08:29 11/01/21 08:29 Lab Results 11/01/21 11/01/21 Range/Units 08:29 08:29 WBC 12.2 H (4.5-11.0) K/mm3 RBC 6.48 H (3.65-5.03) M/mm3 Hgb 14.6 H (10.1-14.3) gm/dl Hct 46.9 H (30.3-42.9) % MCV 72 L (79-97) fl MCH 23 L (28-32) pg MCHC 31 (30-34) % RDW 14.7 (13.2-15.2) % Plt Count 434 (140-440) K/mm3 Lymph % (Auto) 7.8 L (13.4-35.0) % [place] % (Auto) 6.6 (0.0-7.3) % Eos % (Auto) 0.1 (0.0-4.3) % Baso % (Auto) 0.3 (0.0-1.8) % Lymph # (Auto) 1.0 L (1.2-5.4) K/mm3 [place] # (Auto) 0.8 (0.0-0.8) K/mm3 Eos # (Auto) 0.0 (0.0-0.4) K/mm3 Baso # (Auto) 0.0 (0.0-0.1) K/mm3 Seg Neutrophils % 85.2 H (40.0-70.0) % Seg Neutrophils # 10.4 H (1.8-7.7) K/mm3 Sodium 134 L (137-145) mmol/L Potassium 4.8 (3.6-5.0) mmol/L Chloride 94.1 L (98-107) mmol/L Carbon Dioxide 22 (22-30) mmol/L Anion Gap 23 mmol/L BUN 42 H (7-17) mg/dL Creatinine 1.1 D (0.6-1.2) mg/dL Estimated GFR 57 ml/min BUN/Creatinine Ratio 38 % Glucose 130 H (65-100) mg/dL Calcium 9.3 (8.4-10.2) mg/dL - Radiology Data Radiology results: report reviewed CT HEAD/BRAIN WO CON INDICATION / CLINICAL INFORMATION: 89 years Female; fall out of bed, forehead hematoma. TECHNIQUE: Routine CT head without contrast. All CT scans at this location are performed using CT dose reduction for ALARA by means of automated exposure control. COMPARISON: 10/23/2021 FINDINGS: BRAIN / INTRACRANIAL CONTENTS: No acute hemorrhage, mass effect, midline shift, hydrocephalus, or acute, large territorial infarct. Previously described 1.1 cm meningioma along the inner table of the right frontal bone is noted and unchanged. Mild diffuse cerebral and cerebellar atrophy. There are scattered areas of decreased attenuation in the white matter of the cerebral hemispheres. These are nonspecific findings and may be related to microangiopathy (hypertension, diabetes, atherosclerosis), given the patient's age. It might be difficult to evaluate for small areas of ischemia without diffusion imaging by MRI. CRANIOCERVICAL JUNCTION: No significant abnormality. ORBITS: No significant abnormality of visualized orbits. SINUSES / MASTOIDS: Visualized paranasal sinuses and mastoid air cells are essentially clear. ADDITIONAL FINDINGS: Mild frontal soft tissue swelling/hematoma is noted. Atherosclerotic disease is seen in the anterior and posterior circulation. IMPRESSION: No acute intracranial injury. Right frontal soft tissue hematoma. CT CERVICAL SPINE WITHOUT CONTRAST INDICATION: fall out of bed, forehead hematoma. TECHNIQUE: Axial imaging performed through the cervical without the use of contrast. Sagittal and coronal reconstructed images were also reviewed. All CT scans at this location are performed using CT dose reduction for ALARA by means of automated exposure control. COMPARISON: None FINDINGS: Alignment: Spinal alignment is normal. Bones: There is no acute osseous abnormality. Mild osteopenia is evident. There is mild multilevel discogenic DJD and facet arthropathy. C5-6 is the most affected level. Soft tissues: No acute or significant incidental soft tissue abnormality. IMPRESSION: No acute abnormality. Osteopenia. Cervical spondylosis. - Medical Decision Making 89-year-old female presents to the hospital after fall out of bed. CT head and cervical spine without acute injury. Labs revealed mild dehydration. Patient received 1 L of normal saline and will be discharged back to assisted living Critical Care Time: No Critical care attestation.: If time is entered above; I have spent that time in minutes in the direct care of this critically ill patient, excluding procedure time. ED Disposition Clinical Impression: Fall, Traumatic hematoma of forehead, Dehydration Disposition: 01 HOME / SELF CARE / HOMELESS Is pt being admited?: No Does the pt Need Aspirin: No Condition: Stable Instructions: Dehydration, Adult, Facial or Scalp Contusion, [id number], Fall Prevention in the Home, Adult Additional Instructions: Follow-up with your doctor or doctor/clinic provided. Return if symptoms worsen as indicated by your discharge instructions. Referrals: PRIMARY CARE, [Primary Care Provider] - 3-5 Days Time of Disposition: 14:41
--- NOTE | 2021-11-01 08:09 | Cat Scan Report ---
CT HEAD/BRAIN WO CON INDICATION / CLINICAL INFORMATION: 89 years Female; fall out of bed, forehead hematoma. TECHNIQUE: Routine CT head without contrast. All CT scans at this location are performed using CT dos e reduction for ALARA by means of automated exposure control. COMPARISON: 10/23/2021 FINDINGS: BRAIN / INTRACRANIAL CONTENTS: No acute hemorrhage, mass effect, midline shift, hydrocephalus, or acu te, large territorial infarct. Previously described 1.1 cm meningioma along the inner table of the ri ght frontal bone is noted and unchanged. Mild diffuse cerebral and cerebellar atrophy. There are scattered areas of decreased attenuation in the white matter of the cerebral hemispheres. T hese are nonspecific findings and may be related to microangiopathy (hypertension, diabetes, atherosc lerosis), given the patient's age. It might be difficult to evaluate for small areas of ischemia with out diffusion imaging by MRI. CRANIOCERVICAL JUNCTION: No significant abnormality. ORBITS: No significant abnormality of visualized orbits. SINUSES / MASTOIDS: Visualized paranasal sinuses and mastoid air cells are essentially clear. ADDITIONAL FINDINGS: Mild frontal soft tissue swelling/hematoma is noted. Atherosclerotic disease is seen in the anterior and posterior circulation. IMPRESSION: No acute intracranial injury. Right frontal soft tissue hematoma. Signer Name: Samy Silvestre Jr, MD Signed: 11/01/2021 8:04 AM Workstation Name: [id number]
--- NOTE | 2021-11-01 08:11 | Cat Scan Report ---
CT CERVICAL SPINE WITHOUT CONTRAST INDICATION: fall out of bed, forehead hematoma. TECHNIQUE: Axial imaging performed through the cervical without the use of contrast. Sagittal and c oronal reconstructed images were also reviewed. All CT scans at this location are performed using CT dose reduction for ALARA by means of automated exposure control. COMPARISON: None FINDINGS: Alignment: Spinal alignment is normal. Bones: There is no acute osseous abnormality. Mild osteopenia is evident. There is mild multilevel discogenic DJD and facet arthropathy. C5-6 is the most affected level. Soft tissues: No acute or significant incidental soft tissue abnormality. IMPRESSION: No acute abnormality. Osteopenia. Cervical spondylosis. Signer Name: Samy Silvestre Jr, MD Signed: 11/01/2021 8:07 AM Workstation Name: [id number]
[2021-11-01 08:46] LABS: Basophils % (Auto) 0.3 % (0.0-1.8); Eosinophils % (Auto) 0.1 % (0.0-4.3); Lymphocytes % (Auto) 7.8 % (13.4-35.0); Mean Corpuscular HGB Conc 31 % (30-34); Mean Corpuscular Volume 72 fl (79-97); Monocytes # (Auto) 0.8 K/mm3 (0.0-0.8); Monocytes % (Auto) 6.6 % (0.0-7.3); Platelet Count 434 K/mm3 (140-440); Red Blood Count 6.48 M/mm3 (3.65-5.03); Red Cell Distribution Width 14.7 % (13.2-15.2)
[2021-11-01 08:59] LABS: Calcium 9.3 mg/dL (8.4-10.2)
[2021-11-01] MEDS ORDERED: SODIUM CHLORIDE 0.9% 1000 ML 1,000 ML IV ONE (09:36)
[2021-11-01 09:39] LABS: Hematocrit 46.9 % (30.3-42.9); Hemoglobin 14.6 gm/dl (10.1-14.3)
[2021-11-02 03:35] VITALS: BP 142/86
== END 2021-11-02 03:34 | disposition home or self-care (01) ==
LOC: ED 05:13
DX: S00.83XA Contusion of other part of head, initial encounter (principal); E86.0 Dehydration; I10 Essential (primary) hypertension; E11.9 Type 2 diabetes mellitus without complications; Z79.899 Other long term (current) drug therapy; W18.39XA Other fall on same level, initial encounter; Y93.89 Activity, other specified; Y92.89 Other specified places as the place of occurrence of the external cause; Y99.8 Other external cause status
CPT/HCPCS: 36415; 70450; 72125; 80048; 85025; 96360; 99284; J7030; Q0162